=== PATIENT | male | born 1975 | race Caucasian/White ===

== ENCOUNTER → 2018-10-09 | Outpatient (REF) | payer OTHER ==
[~2018-10-09] MED LIST: ABIL10TA OR; ABIL2TAB OR; AMBI5TAB OR; DEPA500T2 OR; DEPAKOTE PO; HALO10TA4 OR; TRAZ50TA OR; VITA500C OR; [UNRECOGNIZED DRUG - OTHER] TOP
[2018-10-09 12:11] LABS: HEMATOCRIT 44.8 % (42.0-52.0); HEMOGLOBIN 15.7 g/dl (13.5-17.5); MEAN CORPUSCULAR HEMOGLOBIN 30.3 pg (27.0-33.0); MEAN CORPUSCULAR VOLUME 86.5 fl (80.0-96.0); PLATELET COUNT, AUTOMATED 209 10^3/uL (150-450); RED BLOOD COUNT 5.18 10^6/uL (4.30-6.10); WHITE BLOOD COUNT 9.7 10^3/uL (4.0-10.0)
[2018-10-09 13:20] LABS: ALBUMIN 3.7 GM/DL (3.2-5.2); ALT/SGPT 28 U/L (12-78); BILIRUBIN,TOTAL 0.4 MG/DL (0.2-1.0); BLOOD UREA NITROGEN 7 MG/DL (7-18); CALCIUM LEVEL 8.5 MG/DL (8.5-10.1); CARBON DIOXIDE LEVEL 26 MEQ/L (21-32); CHLORIDE LEVEL 105 MEQ/L (98-107); CHOLESTEROL LEVEL 123 MG/DL (<200); CHOLESTEROL RISK RATIO 3.075 (<5); CREATININE FOR GFR 0.81 MG/DL (0.70-1.30); FREE T4 1.27 NG/DL (0.76-1.46); GLOMERULAR FILTRATION RATE > 60.0 (>60); GLUCOSE, FASTING 74 MG/DL (70-100); HDL CHOLESTEROL 40 MG/DL (>40); LDL CHOLESTEROL 67 MG/DL (<100); NON-HDL-C 83 MG/DL; POTASSIUM SERUM 3.9 MEQ/L (3.5-5.1); SODIUM LEVEL 137 MEQ/L (136-145); TOTAL PROTEIN 6.7 GM/DL (6.4-8.2); TRIGLYCERIDES LEVEL 78 MG/DL (<150)
[2018-10-09 13:24] LABS: HEPATITIS C VIRUS ABY INDEX < 0.0 INDEX (<0.8)
[2018-10-09 13:25] LABS: HIV 1&2 SCREEN CENTAUR NEGATIVE (NEGATIVE)
[2018-10-09 15:45] LABS: HEMOGLOBIN A1c 5.5 %
== END ==
LOC: M SFHCPLAZ 09:32
PROVIDERS: ATTEND Physician Assistant
DX: Z11.4 Encounter for screening for human immunodeficiency virus [HIV] (principal); F31.9 Bipolar disorder, unspecified; Z11.59 Encounter for screening for other viral diseases; Z13.220 Encounter for screening for lipoid disorders

== ENCOUNTER 2020-06-26 20:31 | Emergency (ER) | payer MEDICAID, OTHER ==
[~2020-06-26] VITALS: Ht 162.6 cm; Wt 56.7 kg
[2020-06-26] MEDS ORDERED: LORazepam 2 MG/ML VIAL IV STA (20:43)
[2020-06-26 20:58] LABS: BASO % 0.4 % (0.0-1.0); EOS # 0.1 10^3/uL (0.0-0.5); EOS % 0.6 % (0.0-3.0); HEMATOCRIT 48.1 % (42.0-52.0); HEMOGLOBIN 16.2 g/dl (13.5-17.5); LYMPH # 1.3 10^3/uL (1.5-5.0); LYMPH % 12.3 % (24.0-44.0); MEAN CORPUSCULAR HGB CONC 33.7 g/dl (32.0-36.5); MEAN CORPUSCULAR VOLUME 86.2 fl (80.0-96.0); MONO % 8.9 % (0.0-5.0); NEUTROPHILS # 8.4 10^3/uL (1.5-8.5); NEUTROPHILS % 77.3 % (36.0-66.0); PLATELET COUNT, AUTOMATED 298 10^3/uL (150-450); RED BLOOD COUNT 5.58 10^6/uL (4.30-6.10); WHITE BLOOD COUNT 10.9 10^3/uL (4.0-10.0)
[2020-06-26 21:39] LABS: ACETAMINOPHEN LEVEL < 2.0 UG/ML (10.0-30.0); ALBUMIN 4.2 GM/DL (3.2-5.2); ALT/SGPT 23 U/L (12-78); BILIRUBIN,DIRECT 0.1 MG/DL (0.0-0.2); BILIRUBIN,TOTAL 0.5 MG/DL (0.2-1.0); BLOOD UREA NITROGEN 10 MG/DL (7-18); CALCIUM LEVEL 9.5 MG/DL (8.5-10.1); CARBON DIOXIDE LEVEL 23 MEQ/L (21-32); CHLORIDE LEVEL 103 MEQ/L (98-107); CPK CREATINE PHOSPHOKINASE 400 U/L (39-308); CREATININE FOR GFR 0.91 MG/DL (0.70-1.30); ETHYL ALCOHOL (ETHANOL) < 0.003 % (0.000-0.010); GLOMERULAR FILTRATION RATE > 60.0 (>60); GLUCOSE, FASTING 126 MG/DL (70-100); SALICYLATE LEVEL 4.2 MG/DL (5.0-30.0); SODIUM LEVEL 135 MEQ/L (136-145); TOTAL PROTEIN 8.1 GM/DL (6.4-8.2)
[2020-06-26] MEDS ORDERED: BENZ-52 PO (22:40)
[2020-06-26] MEDS ORDERED: OLAN15TA PO (22:40)
[2020-06-26 23:12] LABS: AMPHETAMINES LEVEL URINE NEGATIVE (NEGATIVE); BARBITURATES URINE NEGATIVE (NEGATIVE); BENZODIAZEPINES URINE NEGATIVE (NEGATIVE); CANNABINOIDS URINE NEGATIVE (NEGATIVE); COCAINE METABOLITE URINE NEGATIVE (NEGATIVE); METHADONE URINE NEGATIVE (NEGATIVE); OPIATES URINE NEGATIVE (NEGATIVE); PHENCYCLIDINE URINE NEGATIVE (NEGATIVE)
--- NOTE | 2020-06-27 06:37 | ECGEPIP ---
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
--- NOTE | 2020-06-27 06:44 | ECGEPIP ---
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
--- NOTE | 2020-06-27 06:45 | ECGEPIP ---
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
[2020-06-27] MEDS ORDERED: OLANZapine 5 MG TAB PO SCH (21:00)
[2020-06-27] MEDS ORDERED: BENZTROPINE 1 MG TAB PO SCH (21:00)
[2020-06-27 22:52] VITALS: BP 142/96
== END 2020-06-27 22:57 ==
LOC: M ED 20:31
DX: T43.592A Poisoning by other antipsychotics and neuroleptics, intentional self-harm, initial encounter (principal); T44.3X2A Poisoning by other parasympatholytics [anticholinergics and antimuscarinics] and spasmolytics, intentional self-harm, initial encounter; F19.959 Other psychoactive substance use, unspecified with psychoactive substance-induced psychotic disorder, unspecified; R94.31 Abnormal electrocardiogram [ECG] [EKG]; Z79.899 Other long term (current) drug therapy
CPT/HCPCS: 36415; 80048; 80076; 80307; 82550; 84443; 85025; 93005; 93041; 94760; 99285; G0480; J2060; U0002

== ENCOUNTER 2020-07-10 13:14 | Inpatient (IN) | payer MEDICAID, OTHER ==
[~2020-07-10] VITALS: Ht 162.6 cm; Wt 55.5 kg
[~2020-07-10 13:14] MED LIST changes: +BENZ-52 PO; +OLAN15TA PO
[2020-07-10 14:08] LABS: HEMATOCRIT 44.3 % (42.0-52.0); HEMOGLOBIN 14.8 g/dl (13.5-17.5); MEAN CORPUSCULAR HEMOGLOBIN 29.2 pg (27.0-33.0); MEAN CORPUSCULAR HGB CONC 33.4 g/dl (32.0-36.5); MEAN CORPUSCULAR VOLUME 87.4 fl (80.0-96.0); PLATELET COUNT, AUTOMATED 311 10^3/uL (150-450); RED BLOOD COUNT 5.07 10^6/uL (4.30-6.10); WHITE BLOOD COUNT 8.5 10^3/uL (4.0-10.0)
[2020-07-10 14:40] LABS: AMPHETAMINES LEVEL URINE NEGATIVE (NEGATIVE); BARBITURATES URINE NEGATIVE (NEGATIVE); BENZODIAZEPINES URINE NEGATIVE (NEGATIVE); CANNABINOIDS URINE NEGATIVE (NEGATIVE); COCAINE METABOLITE URINE NEGATIVE (NEGATIVE); METHADONE URINE NEGATIVE (NEGATIVE); OPIATES URINE NEGATIVE (NEGATIVE); PHENCYCLIDINE URINE NEGATIVE (NEGATIVE)
[2020-07-10 14:49] LABS: ACETAMINOPHEN LEVEL < 2.0 UG/ML (10.0-30.0); ALT/SGPT 25 U/L (12-78); BILIRUBIN,DIRECT < 0.1 MG/DL (0.0-0.2); BILIRUBIN,TOTAL 0.3 MG/DL (0.2-1.0); BLOOD UREA NITROGEN 10 MG/DL (7-18); CALCIUM LEVEL 8.4 MG/DL (8.5-10.1); CARBON DIOXIDE LEVEL 22 MEQ/L (21-32); CHLORIDE LEVEL 104 MEQ/L (98-107); CREATININE FOR GFR 0.91 MG/DL (0.70-1.30); ETHYL ALCOHOL (ETHANOL) < 0.003 % (0.000-0.010); GLOMERULAR FILTRATION RATE > 60.0 (>60); GLUCOSE, FASTING 86 MG/DL (70-100); POTASSIUM SERUM 4.1 MEQ/L (3.5-5.1); SODIUM LEVEL 134 MEQ/L (136-145); TOTAL PROTEIN 7.3 GM/DL (6.4-8.2)
[2020-07-10] MEDS ORDERED: ACETAMINOPHEN TAB 650MG DOSE (2X325MG) PO PRN (18:30)
[2020-07-10] MEDS ORDERED: MAALOX 30 ML SUSP *UDC PO PRN (18:30)
[2020-07-10] MEDS ORDERED: MOM 30ML SUSPENSION UDC PO PRN (18:30)
[2020-07-10] MEDS ORDERED: traZODone 50 MG TAB PO PRN (18:30)
[2020-07-10 22:00] VITALS: BP 158/103
[2020-07-11 06:29] VITALS: BP 136/92
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
[2020-07-11] MEDS ORDERED: NICOTINE POLACRILEX 2 MG GUM PO PRN (09:15)
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
[2020-07-11 17:02] VITALS: BP 151/82
[2020-07-11] MEDS: OLANZapine 5 MG TAB PO SCH (21:00)
[2020-07-11] MEDS: BENZTROPINE 1 MG TAB PO SCH (21:00)
[2020-07-12 06:37] VITALS: BP 114/78
[2020-07-12 16:22] VITALS: BP 139/86
[2020-07-12] MEDS: OLANZapine 5 MG TAB PO SCH (21:00)
[2020-07-12] MEDS: BENZTROPINE 1 MG TAB PO SCH (21:00)
[2020-07-13 06:00] VITALS: BP 145/95
[2020-07-13] MEDS ORDERED: risperiDONE 1 MG TAB PO STA (13:44)
[2020-07-13 16:35] VITALS: BP 149/96
[2020-07-13] MEDS: OLANZapine 5 MG TAB PO SCH (20:30)
[2020-07-13] MEDS: BENZTROPINE 1 MG TAB PO SCH (20:30)
--- NOTE | 2020-07-13 20:45 | MHIPN ---
[facility] PROGRESS NOTE DATE: 07/12/2020 The patient today is very delusional, he just goes on about the fact that the only reason why he is in the hospital is because his blood pressure is high and his blood pressure is high because of the psychotropic medications that he was being prescribed. Actually I am his outpatient psychiatrist, I have been prescribing his current psychotropic medications for many years now, and he actually had been quite compliant and it is not clear if he stopped his medications recently because I am not able to get a straight answer from him about that. MENTAL STATUS EXAMINATION: This patient is alert, he is oriented times three. His speech is pressured. He has flight of ideas. Affect is labile. His mood is manic. He has delusions about having been pardoned and being allowed to vote. Of note, is that the patient was in assisted for a number of years and is still under parole. He denies suicidal or homicidal ideations. Concentration is poor. Insight and judgment is poor. DIAGNOSES: Schizophrenia. Intellectual disability. TREATMENT PLAN: At this point, we will continue to monitor the patient for his psychotic symptoms. He apparently has been continued on his medication and the plan will be titrate the medication as indicated. Actually, he has been refusing his medications so we will need to encourage him to become compliant and it may be a good idea to see if he might agree to a long-term injectable like possibly Invega Sustenna.
[2020-07-14 06:26] VITALS: BP 131/58
--- NOTE | 2020-07-14 08:14 | MHIPN ---
[facility] PROGRESS NOTE DATE: 07/13/2020 The patient today states that the medication he was being prescribed, the psychotropics that include Zyprexa "was killing me." He continues to feel that it is causing his blood pressure to be high. Of note, I am his outpatient psychiatrist and he has been on these medications for years. He continues to be quite paranoid but he does agree to try a different medication actually. He says he had tried Risperdal before and asked if I would prescribe Risperdal for him. MENTAL STATUS EXAMINATION: This patient is alert and oriented times three. He has pressured speech, flight of ideas, labile affect. His mood is manic. The patient has paranoid thoughts. He denies suicidal or homicidal ideation. Concentration is poor. Memory is grossly intact. Insight and judgment poor. DIAGNOSES: Schizophrenia. Mild intellectual disability. TREATMENT PLAN: The patient did agree to a trial of Invega Sustenna injections but even though he says he had been prescribed Risperdal in the past, I am going to go ahead and give him a Risperdal 1 mg dose today and if he has no bad reactions tomorrow he can start the Invega Sustenna injection.
--- NOTE | 2020-07-14 12:30 | MHIPNPDOC ---
[facility] Progress Note Progress Note DATE OF SERVICE: 07/14/20 HISTORY: Patient was a 9.45 to this facility, initiated by Dr. Mcclelland after speaking to the patient and determining that he is delusional and paranoid. Patient is a 44 -year-old Single, Disabled, Domiciled , male, who was brought to the ED on a 9.45 that was initiated by Dr. Mcclelland who felt that the patient was psychotic, delusional and paranoid. VITAL SIGNS: See below. NEW TEST RESULTS: . CURRENT MEDICATIONS: See below. MENTAL STATUS EXAMINATION: Patient is a 44 -year-old Single, Disabled, Domiciled , male, who was brought to the ED on a 9.45 that was initiated by Dr. Mcclelland who felt that the patient was psychotic, delusional and paranoi General Appearance: unkempt, disheveled, ds/not appear stated age (appears much older than stated age), hospital scrubs/clothing Build: thin Demeanor: very fidgety Eye Contact: average Activity: mildly restless Behavior: cooperative, restless (mildly) Speech: rapid, pressured Mood: Worried Affect: flat Thought Process: loose, flight of ideas, racing Thought Content (Delusions): paranoia, delusions Thought Content (Other): obsessional about Asians, [place] government, Octavio michelle Thought Content (Aggressive): none reported Perception (Hallucinations): none reported Perception (Other): none reported Cognition (Impairment of): memory, attention/concentration Cognition(Intelligence Est.): MR Oriented: Awake, Alert, Oriented times three Insight: poor Judgment: Poor Psychosis: Other (Believes that parole is working against him) DIAGNOSES: Schizophrenia, Paranoid Type Intellectual Disability ASSESSMENT: Patient is hyperverbal and tangential. Is hyper-focused on Celebrity Octavio Michelle and also the [place] government. He presents with flight of ideas, nonsensical and bizarre statements about the [place]/Asians and that he is . He is calm and cooperative in the interview but extremely tangential with fast speech, stating that he prefers [place] medicine, government and politicians to Western world. He spent much of his 20 minutes talking about [employer] being a super power. MANAGEMENT PLAN: Increase Risperdal to 3 mg at HS. Patient agreeable to Invega Sustenna 234 mg IM on 07/15 and 156 mg IM on 07/18. If patient is stable on 07/18 we will discharge him. TIME SPENT: 25 minutes. Vital Signs Vital Signs Date Time Temp Pulse Resp B/P (MAP) Pulse Ox O2 Delivery O2 Flow Rate FiO2 07/14/20 06:26 97.5 86 18 131/58 (82) 98 Room Air Current Medications Current Medications Medications (Trade) Dose Ordered Sig/Rd Route PRN Reason Start Time Stop Time Status Last Admin Dose Admin Acetaminophen (Tylenol Tab) 650 mg Q6HP PRN PO HEADACHE or DISCOMFORT 07/10/20 18:30 Al Hydrox/Mg Hydrox/Simethicone (Mylanta) 30 ml Q4HP PRN PO HEARTBURN/INDIGESTION 07/10/20 18:30 Benztropine Mesylate (Cogentin) 3 mg QHS PO 07/11/20 21:00 Home Med (Med Rec Complete!) ASDIRECTED XX 07/10/20 15:30 07/10/20 15:20 DC Magnesium Hydroxide (Milk Of Magnesia) 30 ml DAILYPRN PRN PO CONSTIPATION 07/10/20 18:30 Nicotine (Nicorette) 2 mg Q2HP PRN PO NICOTINE WITHDRAWAL 07/11/20 09:15 Olanzapine (ZyPREXA) 15 mg QHS PO 07/11/20 21:00 Risperidone (RisperDAL) 1 mg STAT STAT PO 07/13/20 13:44 07/13/20 13:46 DC 07/13/20 13:52 Trazodone HCl (Desyrel) 50 mg QHSP PRN PO INSOMNIA 07/10/20 18:30 Allergies Coded Allergies: No Known Allergies (Verified , 09/22/05) WU MENEZES NP Jul 14, 2020 12:30
[2020-07-14 17:52] VITALS: BP 147/87
[2020-07-14] MEDS: OLANZapine 5 MG TAB PO SCH (21:00)
[2020-07-14] MEDS: BENZTROPINE 1 MG TAB PO SCH (21:00)
[2020-07-14] MEDS: risperiDONE 3 MG TAB PO SCH (21:00)
[2020-07-15 06:28] VITALS: BP 153/90
[2020-07-15] MEDS ORDERED: HALOPERIDOL 5MG/ML VIAL (J1630 PER 1) IM STA (08:37)
[2020-07-15] MEDS ORDERED: diphenhydrAMINE 50MG/ML VIAL (J1200) IM STA (08:37)
[2020-07-15] MEDS ORDERED: LORazepam 2 MG/ML VIAL IM STA (08:37)
[2020-07-15] MEDS ORDERED: PALIPERIDONE PALMITATE 234MG/1.5ML INJ (INVEGA)(FREE PSY INPT ONLY) IM SCH (09:00)
--- NOTE | 2020-07-15 13:45 | MHIPNPDOC ---
[facility] Progress Note Progress Note DATE OF SERVICE: 07/15/20 HISTORY: Patient was a 9.45 to this facility, initiated by Dr. Mcclelland after speaking to the patient and determining that he is delusional and paranoid. Patient is a 44 -year-old Single, Disabled, Domiciled , male, who was brought to the ED on a 9.45 that was initiated by Dr. Mcclelland who felt that the patient was psychotic, delusional and paranoid. VITAL SIGNS: See below. NEW TEST RESULTS: . CURRENT MEDICATIONS: See below. MENTAL STATUS EXAMINATION: Patient is a 44 -year-old Single, Disabled, Domiciled , male, who was brought to the ED on a 9.45 that was initiated by Dr. Mcclelland who felt that the patient was psychotic, delusional and paranoi General Appearance: unkempt, disheveled, ds/not appear stated age (appears much older than stated age), hospital scrubs/clothing Build: thin Demeanor: agitated, hostile Eye Contact: average Activity: restless Behavior: uncooperative, restless (mildly) Speech: rapid, pressured, flight of ideas Mood: agitated/labile Affect: flat Thought Process: loose, flight of ideas, racing Thought Content (Delusions): paranoia, delusions Thought Content (Other): obsessional about Asians, [place], Octavio michelle Thought Content (Aggressive): none reported Perception (Hallucinations): none reported Perception (Other): none reported Cognition (Impairment of): memory, attention/concentration Cognition(Intelligence Est.): MR Oriented: Awake, Alert, Oriented times three Insight: poor Judgment: Poor Psychosis: Other (Believes that parole is working against him) DIAGNOSES: Schizophrenia, Paranoid Type Intellectual Disability ASSESSMENT: Patient was observed to be hyperverbal and tangential. Is again hyper-focused on Asians. He was observed with this morning with agitation, hostility, loud, pressured speech, flight of ideas, nonsensical and bizarre statements. He was threatening towards staff and could not be redirected. Patient has been refusing medications. Due to his continued and lengthy agitated and aggressive behaviors that were threatening, he was offered medications. He willingly took the medications without safety hold. MANAGEMENT PLAN: Risperdal to 3 mg at HS. Ordered Invega Sustenna 234 mg IM on 07/16 and 156 mg IM on 07/19. Patient was ordered Haldol 10 mg IM, Ativan 2 mg IM and Benadryl 50 mg IM due to aggressive behaviors and threats of harm. This was effective, patient has been sleeping and is calm. TIME SPENT: 25 minutes. Vital Signs Vital Signs Date Time Temp Pulse Resp B/P (MAP) Pulse Ox O2 Delivery O2 Flow Rate FiO2 07/15/20 06:28 98.5 102 20 153/90 (111) 99 Room Air Current Medications Current Medications Medications (Trade) Dose Ordered Sig/Rd Route PRN Reason Start Time Stop Time Status Last Admin Dose Admin Acetaminophen (Tylenol Tab) 650 mg Q6HP PRN PO HEADACHE or DISCOMFORT 07/10/20 18:30 Al Hydrox/Mg Hydrox/Simethicone (Mylanta) 30 ml Q4HP PRN PO HEARTBURN/INDIGESTION 07/10/20 18:30 Benztropine Mesylate (Cogentin) 3 mg QHS PO 07/11/20 21:00 Diphenhydramine HCl (Benadryl) 50 mg STAT STAT IM 07/15/20 08:37 07/15/20 08:40 DC 07/15/20 08:51 Haloperidol (Haldol) 10 mg STAT STAT IM 07/15/20 08:37 07/15/20 08:40 DC 07/15/20 08:51 Home Med (Med Rec Complete!) ASDIRECTED XX 07/10/20 15:30 07/10/20 15:20 DC Lorazepam (Ativan) 2 mg STAT STAT IM 07/15/20 08:37 07/15/20 08:40 DC 07/15/20 08:51 Magnesium Hydroxide (Milk Of Magnesia) 30 ml DAILYPRN PRN PO CONSTIPATION 07/10/20 18:30 Nicotine (Nicorette) 2 mg Q2HP PRN PO NICOTINE WITHDRAWAL 07/11/20 09:15 Olanzapine (ZyPREXA) 15 mg QHS PO 07/11/20 21:00 Paliperidone Palmitate (Invega Sustenna) 156 mg Q30D IM 07/18/20 09:00 07/18/20 09:01 Paliperidone Palmitate (Invega Sustenna) 234 mg Q30D IM 07/15/20 09:00 07/15/20 09:01 DC Risperidone (RisperDAL) 1 mg STAT STAT PO 07/13/20 13:44 07/14/20 12:07 DC 07/13/20 13:52 Risperidone (RisperDAL) 3 mg QHS PO 07/14/20 21:00 Trazodone HCl (Desyrel) 50 mg QHSP PRN PO INSOMNIA 07/10/20 18:30 Allergies Coded Allergies: No Known Allergies (Verified , 09/22/05) WU MENEZES NP Jul 15, 2020 13:30
[2020-07-15] MEDS: OLANZapine 5 MG TAB PO SCH (20:57)
[2020-07-15] MEDS: risperiDONE 3 MG TAB PO SCH (20:57)
[2020-07-15] MEDS: BENZTROPINE 1 MG TAB PO SCH (20:57)
[2020-07-16 06:00] VITALS: BP 121/88
[2020-07-16] MEDS: risperiDONE 2 MG TAB PO SCH ×2 (10:18→21:00)
[2020-07-16] MEDS ORDERED: PALIPERIDONE PALMITATE 234MG/1.5ML INJ (INVEGA)(FREE PSY INPT ONLY) IM ONE (11:00)
--- NOTE | 2020-07-16 11:09 | MHIPNPDOC ---
[facility] Progress Note Progress Note DATE OF SERVICE: 07/16/20 HISTORY: Patient was a 9.45 to this facility, initiated by Dr. Mcclelland after speaking to the patient and determining that he is delusional and paranoid. Patient is a 44 -year-old Single, Disabled, Domiciled , male, who was brought to the ED on a 9.45 that was initiated by Dr. Mcclelland who felt that the patient was psychotic, delusional and paranoid. VITAL SIGNS: See below. NEW TEST RESULTS: . CURRENT MEDICATIONS: See below. MENTAL STATUS EXAMINATION: Patient is a 44 -year-old Single, Disabled, Domiciled , male, who was brought to the ED on a 9.45 that was initiated by Dr. Mcclelland who felt that the patient was psychotic, delusional and paranoid Speech: Is garbled due to poor dentition, conversant, rapid rate, calmer tone and volume Language skills are intact Thought processes including: linear and goal oriented Thought content: denies depression and anxiety. Denies suicidal/homicidal ideation, planning or intent. Abstract reasoning, and computation: fair Description of associations: denies, but very focused on Asians, Medications, Staff not taking care of him. He is less labile today Description of abnormal or psychotic thoughts: he is mildly manic in his speech Judgment: fair Insight: fair Orientation: alert and oriented to person, place, time and situation Recent and remote memory: intact Attention span and concentration: fair Language: expansive Fund of knowledge: below average Mood: Euthymic Mood Affect: reactive DIAGNOSES: Schizophrenia, Paranoid Type Intellectual Disability ASSESSMENT: Patient was observed to be mildly hyperverbal and tangential. Is again hyper-focused on medications and [place] translation of meds. He was observed with this morning with calmer demeanor. He is moderately demeaning about staff. In the interview, he is requesting to be discharged. I have encouraged him to take the Long Acting Injectable today with the Booster on Tuesday. Patient does appear to have positive residual effects from the Haldol 10 mg IM, Ativan 2 mg IM and Benadryl 50 mg IM from yesterday in that he is much calmer and is able to be converse without maniacal behaviors. Patient requested this provider to observe him getting IM injection. Patient willingly took injection and Risperdal today and has been in good behavioral control today. MANAGEMENT PLAN: Risperdal increased to 2 mg at bid. Ordered Invega Sustenna 234 mg IM on 07/16, He was compliant with this injection and took it without hesitation today. Invega Sustenna 156 mg IM ordered on 07/19. We will discharge when he is stable. TIME SPENT: 25 minutes. Vital Signs Vital Signs Date Time Temp Pulse Resp B/P (MAP) Pulse Ox O2 Delivery O2 Flow Rate FiO2 07/16/20 06:00 97.3 78 20 121/88 (99) 100 Room Air Current Medications Current Medications Medications (Trade) Dose Ordered Sig/Rd Route PRN Reason Start Time Stop Time Status Last Admin Dose Admin Acetaminophen (Tylenol Tab) 650 mg Q6HP PRN PO HEADACHE or DISCOMFORT 07/10/20 18:30 Al Hydrox/Mg Hydrox/Simethicone (Mylanta) 30 ml Q4HP PRN PO HEARTBURN/INDIGESTION 07/10/20 18:30 Benztropine Mesylate (Cogentin) 3 mg QHS PO 07/11/20 21:00 Diphenhydramine HCl (Benadryl) 50 mg STAT STAT IM 07/15/20 08:37 07/15/20 08:40 DC 07/15/20 08:51 Haloperidol (Haldol) 10 mg STAT STAT IM 07/15/20 08:37 07/15/20 08:40 DC 07/15/20 08:51 Home Med (Med Rec Complete!) ASDIRECTED XX 07/10/20 15:30 07/10/20 15:20 DC Lorazepam (Ativan) 2 mg STAT STAT IM 07/15/20 08:37 07/15/20 08:40 DC 07/15/20 08:51 Magnesium Hydroxide (Milk Of Magnesia) 30 ml DAILYPRN PRN PO CONSTIPATION 07/10/20 18:30 Nicotine (Nicorette) 2 mg Q2HP PRN PO NICOTINE WITHDRAWAL 07/11/20 09:15 Olanzapine (ZyPREXA) 15 mg QHS PO 07/11/20 21:00 Paliperidone Palmitate (Invega Sustenna) 156 mg Q30D IM 07/18/20 09:00 07/15/20 13:36 DC Paliperidone Palmitate (Invega Sustenna) 234 mg Q30D IM 07/15/20 09:00 07/15/20 09:01 DC Risperidone (RisperDAL) 1 mg STAT STAT PO 07/13/20 13:44 07/14/20 12:07 DC 07/13/20 13:52 Risperidone (RisperDAL) 2 mg BID PO 07/16/20 09:00 07/16/20 10:18 Risperidone (RisperDAL) 3 mg QHS PO 07/14/20 21:00 07/16/20 10:07 DC Trazodone HCl (Desyrel) 50 mg QHSP PRN PO INSOMNIA 07/10/20 18:30 Allergies Coded Allergies: No Known Allergies (Verified , 09/22/05) WU MENEZES NP Jul 16, 2020 11:09
[2020-07-16] MEDS: BENZTROPINE 1 MG TAB PO SCH (21:00)
[2020-07-16] MEDS: OLANZapine 5 MG TAB PO SCH (21:00)
[2020-07-17 06:51] VITALS: BP 129/87
--- NOTE | 2020-07-17 09:42 | MHIPNPDOC ---
[facility] Progress Note Progress Note DATE OF SERVICE: 07/17/20 HISTORY: Patient was a 9.45 to this facility, initiated by Dr. Mcclelland after speaking to the patient and determining that he is delusional and paranoid. Patient is a 44 -year-old Single, Disabled, Domiciled , male, who was brought to the ED on a 9.45 that was initiated by Dr. Mcclelland who felt that the patient was psychotic, delusional and paranoid. VITAL SIGNS: See below. NEW TEST RESULTS: . CURRENT MEDICATIONS: See below. MENTAL STATUS EXAMINATION: Patient is a 44 -year-old Single, Disabled, Domiciled , male, who was brought to the ED on a 9.45 that was initiated by Dr. Mcclelland who felt that the patient was psychotic, delusional and paranoid Speech: Is garbled due to poor dentition, he maintains eye contact, is not observed with psychomotor agitation or retardation Language skills are intact Thought processes including: linear and mildly to moderately loose Thought content: denies depression and anxiety. Denies suicidal/homicidal ideation, planning or intent. Abstract reasoning, and computation: fair Description of associations: denies, but very focused on Asians, COVID and his theories about what foods are appropriate for COVID precautions Description of abnormal or psychotic thoughts: has nonsensical theories about COVID Judgment: fair Insight: fair Orientation: alert and oriented to person, place, time and situation Recent and remote memory: intact Attention span and concentration: fair Language: expansive Fund of knowledge: below average Mood: mildly irritable Affect: flat DIAGNOSES: Schizophrenia, Paranoid Type Intellectual Disability ASSESSMENT: Patient was observed to be mildly hyperverbal and tangential. Patient is upset that he is quarantined to his room for COVID precautions, stat es that he needs to eat seafood because seafood protein has not been on land and therefore is not susceptible to the Covid virus. States that he will only eat tuna fish, but needs to go home to be able to eat lobster, fish and crab. He is in good behavioral control, continues to be have paranoia about staff treating him poorly because he is ( he believes that he is related to Octavio Cordova because their last names are the same) Patient is and not . He is pleasantly delusional, but not a danger to himself or others. He is aware that he needs to have his 2nd dose of Invega Sustenna before he can be considered for discharge. Patient is less aggressive and agitated today than two days ago, Risperdal and Invega is effective, but we want to be sure that he can maintain this behavior, otherwise he may return in a short period if we cannot get him more stable. He has intermitted episodes of agitation and irritability but he is compliant with medications MANAGEMENT PLAN: Risperdal increased to 2 mg at bid. Invega Sustenna 156 mg IM ordered on 07/19. We will discharge when he is stable. TIME SPENT: 25 minutes. Vital Signs Vital Signs Date Time Temp Pulse Resp B/P (MAP) Pulse Ox O2 Delivery O2 Flow Rate FiO2 07/17/20 06:51 97.9 87 16 129/87 (101) 98 Room Air Current Medications Current Medications Medications (Trade) Dose Ordered Sig/Rd Route PRN Reason Start Time Stop Time Status Last Admin Dose Admin Acetaminophen (Tylenol Tab) 650 mg Q6HP PRN PO HEADACHE or DISCOMFORT 07/10/20 18:30 Al Hydrox/Mg Hydrox/Simethicone (Mylanta) 30 ml Q4HP PRN PO HEARTBURN/INDIGESTION 07/10/20 18:30 Benztropine Mesylate (Cogentin) 3 mg QHS PO 07/11/20 21:00 Diphenhydramine HCl (Benadryl) 50 mg STAT STAT IM 07/15/20 08:37 07/15/20 08:40 DC 07/15/20 08:51 Haloperidol (Haldol) 10 mg STAT STAT IM 07/15/20 08:37 07/15/20 08:40 DC 07/15/20 08:51 Home Med (Med Rec Complete!) ASDIRECTED XX 07/10/20 15:30 07/10/20 15:20 DC Lorazepam (Ativan) 2 mg STAT STAT IM 07/15/20 08:37 07/15/20 08:40 DC 07/15/20 08:51 Magnesium Hydroxide (Milk Of Magnesia) 30 ml DAILYPRN PRN PO CONSTIPATION 07/10/20 18:30 Nicotine (Nicorette) 2 mg Q2HP PRN PO NICOTINE WITHDRAWAL 07/11/20 09:15 Olanzapine (ZyPREXA) 15 mg QHS PO 07/11/20 21:00 Paliperidone Palmitate (Invega Sustenna) 156 mg Q30D IM 07/18/20 09:00 07/15/20 13:36 DC Paliperidone Palmitate (Invega Sustenna) 234 mg Q30D IM 07/15/20 09:00 07/15/20 09:01 DC Risperidone (RisperDAL) 1 mg STAT STAT PO 07/13/20 13:44 07/14/20 12:07 DC 07/13/20 13:52 Risperidone (RisperDAL) 2 mg BID PO 07/16/20 09:00 07/16/20 10:18 Risperidone (RisperDAL) 3 mg QHS PO 07/14/20 21:00 07/16/20 10:07 DC Trazodone HCl (Desyrel) 50 mg QHSP PRN PO INSOMNIA 07/10/20 18:30 Allergies Coded Allergies: No Known Allergies (Verified , 09/22/05) WU MENEZES NP Jul 17, 2020 09:42
[2020-07-17] MEDS: risperiDONE 2 MG TAB PO SCH ×2 (10:20→21:00)
[2020-07-17 16:00] VITALS: BP 131/108
[2020-07-17] MEDS: BENZTROPINE 1 MG TAB PO SCH (20:51)
[2020-07-17] MEDS: OLANZapine 5 MG TAB PO SCH (21:00)
[2020-07-18 07:10] VITALS: BP 119/86
[2020-07-18 08:40] VITALS: BP 119/86
[2020-07-18] MEDS ORDERED: PALIPERIDONE PALMITATE 156MG/1ML INJ(INVEGA)(FREE PSY INPT ONLY) IM SCH (09:00)
[2020-07-18] MEDS: risperiDONE 2 MG TAB PO SCH ×2 (09:03→21:00)
--- NOTE | 2020-07-18 09:53 | MHIPNPDOC ---
[facility] Progress Note Progress Note DATE OF SERVICE: 07/18/20 HISTORY: Patient was a 9.45 to this facility, initiated by Dr. Mcclelland after speaking to the patient and determining that he is delusional and paranoid. Patient is a 44 -year-old Single, Disabled, Domiciled , male, who was brought to the ED on a 9.45 that was initiated by Dr. Mcclelland who felt that the patient was psychotic, delusional and paranoid. VITAL SIGNS: See below. NEW TEST RESULTS: . CURRENT MEDICATIONS: See below. MENTAL STATUS EXAMINATION: Patient is a 44 -year-old Single, Disabled, Domiciled , male, who was brought to the ED on a 9.45 that was initiated by Dr. Mcclelland who felt that the patient was psychotic, delusional and paranoid Speech: Is garbled due to poor dentition, hyperverbal, tangential Language skills are intact Thought processes including: linear and mildly with loose associations Thought content: denies depression and anxiety. Denies suicidal/homicidal ideation, planning or intent. Abstract reasoning, and computation: fair Description of associations: denies, continues to be hyperverbal about his theories about what foods are appropriate for COVID precautions Description of abnormal or psychotic thoughts: has nonsensical theories about COVID Judgment: fair Insight: fair Orientation: alert and oriented to person, place, time and situation Recent and remote memory: intact Attention span and concentration: fair Language: expansive Fund of knowledge: below average Mood: euthymic Affect: flat DIAGNOSES: Schizophrenia, Paranoid Type Intellectual Disability ASSESSMENT: Patient was observed to be hyperverbal and tangential with loose associations. Patient is reporting that he is going to stay in his room and stay away from peers (he was tangential about a peer who is affiliated with the ) He was found in the doorway of his room speaking to the [place] on the unit, talking to the staff with non-stop nonsensical statements. He is calm and cooperative but pleasantly delusional. He continues to have diet restrictions due to his Lu Virus theories. Patient, although mildly delusional, nonsensical and bizarre in some of his thinking is not suicidal or homicidal. He is not depressed or anxious. He does not endorse psychosis, brina, paranoia, ruminations or AH/VH. He is alert and oriented and is compliant with medications at this time. MANAGEMENT PLAN: Risperdal increased to 2 mg at bid. Invega Sustenna 156 mg IM ordered on 07/19. We will discharge when he is stable. Probably Tuesday. TIME SPENT: 25 minutes. Vital Signs Vital Signs Date Time Temp Pulse Resp B/P (MAP) Pulse Ox O2 Delivery O2 Flow Rate FiO2 07/18/20 08:40 98.2 92 16 119/86 100 Room Air Current Medications Current Medications Medications (Trade) Dose Ordered Sig/Rd Route PRN Reason Start Time Stop Time Status Last Admin Dose Admin Acetaminophen (Tylenol Tab) 650 mg Q6HP PRN PO HEADACHE or DISCOMFORT 07/10/20 18:30 Al Hydrox/Mg Hydrox/Simethicone (Mylanta) 30 ml Q4HP PRN PO HEARTBURN/INDIGESTION 07/10/20 18:30 Benztropine Mesylate (Cogentin) 3 mg QHS PO 07/11/20 21:00 07/17/20 20:51 Diphenhydramine HCl (Benadryl) 50 mg STAT STAT IM 07/15/20 08:37 07/15/20 08:40 DC 07/15/20 08:51 Haloperidol (Haldol) 10 mg STAT STAT IM 07/15/20 08:37 07/15/20 08:40 DC 07/15/20 08:51 Home Med (Med Rec Complete!) ASDIRECTED XX 07/10/20 15:30 07/10/20 15:20 DC Lorazepam (Ativan) 2 mg STAT STAT IM 07/15/20 08:37 07/15/20 08:40 DC 07/15/20 08:51 Magnesium Hydroxide (Milk Of Magnesia) 30 ml DAILYPRN PRN PO CONSTIPATION 07/10/20 18:30 Nicotine (Nicorette) 2 mg Q2HP PRN PO NICOTINE WITHDRAWAL 07/11/20 09:15 Olanzapine (ZyPREXA) 15 mg QHS PO 07/11/20 21:00 Paliperidone Palmitate (Invega Sustenna) 156 mg Q30D IM 07/18/20 09:00 07/15/20 13:36 DC Paliperidone Palmitate (Invega Sustenna) 234 mg Q30D IM 07/15/20 09:00 07/15/20 09:01 DC Risperidone (RisperDAL) 1 mg STAT STAT PO 07/13/20 13:44 07/14/20 12:07 DC 07/13/20 13:52 Risperidone (RisperDAL) 2 mg BID PO 07/16/20 09:00 07/18/20 09:03 Risperidone (RisperDAL) 3 mg QHS PO 07/14/20 21:00 07/16/20 10:07 DC Trazodone HCl (Desyrel) 50 mg QHSP PRN PO INSOMNIA 07/10/20 18:30 Allergies Coded Allergies: No Known Allergies (Verified , 09/22/05) WU MENEZES NP Jul 18, 2020 09:53
[2020-07-18 18:00] VITALS: BP 157/82
[2020-07-18] MEDS: OLANZapine 5 MG TAB PO SCH (21:00)
[2020-07-18] MEDS: BENZTROPINE 1 MG TAB PO SCH (21:01)
[2020-07-19] MEDS: risperiDONE 2 MG TAB PO SCH ×2 (09:28→21:00)
[2020-07-19] MEDS ORDERED: PALIPERIDONE PALMITATE 156MG/1ML INJ(INVEGA)(FREE PSY INPT ONLY) IM ONE (13:00)
[2020-07-19] MEDS ORDERED: LORazepam 1 MG TAB PO ONE (15:00)
[2020-07-19 16:28] LABS: RSV AMPLIFICATION NEGATIVE (NEGATIVE)
[2020-07-19] MEDS: BENZTROPINE 1 MG TAB PO SCH (20:07)
[2020-07-19] MEDS: OLANZapine 5 MG TAB PO SCH (21:00)
[2020-07-20 06:50] VITALS: BP 132/68
[2020-07-20] MEDS: risperiDONE 2 MG TAB PO SCH ×2 (08:07→21:29)
[2020-07-20 18:00] VITALS: BP 145/86
[2020-07-20] MEDS: OLANZapine 5 MG TAB PO SCH (21:30)
[2020-07-20] MEDS: BENZTROPINE 1 MG TAB PO SCH (21:30)
[2020-07-21 06:37] VITALS: BP 143/79
[2020-07-21] MEDS ORDERED: BENZ-52 PO (09:38)
[2020-07-21] MEDS ORDERED: INVE234I IM (09:38)
[2020-07-21] MEDS ORDERED: OLAN15TA PO (09:38)
[2020-07-21] MEDS ORDERED: RISP-9 PO (09:38)
[2020-07-21] MEDS: risperiDONE 2 MG TAB PO SCH (09:53)
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
== END 2020-07-21 13:20 | disposition home or self-care (01) | DRG 750 ==
LOC: M ED 13:14 → M ED INP 18:18 → M PSY 21:00
PROVIDERS: ADMIT Psychiatry & Neurology Addiction Medicine; ATTEND Psychiatry & Neurology Psychiatry
DX: F20.0 Paranoid schizophrenia (principal); F79 Unspecified intellectual disabilities; Z79.899 Other long term (current) drug therapy

== ENCOUNTER 2020-07-26 22:11 | Inpatient (IN) | payer MEDICAID ==
[~2020-07-26] VITALS: Ht 165.1 cm; Wt 56.9 kg
[~2020-07-26 22:11] MED LIST changes: +INVE234I IM; +RISP-9 PO
[2020-07-27 00:12] LABS: HEMATOCRIT 45.6 % (42.0-52.0); HEMOGLOBIN 15.8 g/dl (13.5-17.5); MEAN CORPUSCULAR HEMOGLOBIN 30.3 pg (27.0-33.0); MEAN CORPUSCULAR HGB CONC 34.6 g/dl (32.0-36.5); MEAN CORPUSCULAR VOLUME 87.4 fl (80.0-96.0); PLATELET COUNT, AUTOMATED 250 10^3/uL (150-450); RED BLOOD COUNT 5.22 10^6/uL (4.30-6.10); WHITE BLOOD COUNT 8.8 10^3/uL (4.0-10.0)
[2020-07-27 00:41] LABS: AMPHETAMINES LEVEL URINE NEGATIVE (NEGATIVE); BARBITURATES URINE NEGATIVE (NEGATIVE); BENZODIAZEPINES URINE NEGATIVE (NEGATIVE); CANNABINOIDS URINE NEGATIVE (NEGATIVE); COCAINE METABOLITE URINE NEGATIVE (NEGATIVE); METHADONE URINE NEGATIVE (NEGATIVE); OPIATES URINE NEGATIVE (NEGATIVE); PHENCYCLIDINE URINE NEGATIVE (NEGATIVE)
[2020-07-27 01:02] LABS: ACETAMINOPHEN LEVEL < 2.0 UG/ML (10.0-30.0); ALBUMIN 4.1 GM/DL (3.2-5.2); ALT/SGPT 21 U/L (12-78); BILIRUBIN,DIRECT 0.1 MG/DL (0.0-0.2); BILIRUBIN,TOTAL 0.3 MG/DL (0.2-1.0); BLOOD UREA NITROGEN 6 MG/DL (7-18); CARBON DIOXIDE LEVEL 23 MEQ/L (21-32); CHLORIDE LEVEL 102 MEQ/L (98-107); CPK CREATINE PHOSPHOKINASE 75 U/L (39-308); CREATININE FOR GFR 0.87 MG/DL (0.70-1.30); ETHYL ALCOHOL (ETHANOL) 0.003 % (0.000-0.010); GLOMERULAR FILTRATION RATE > 60.0 (>60); GLUCOSE, FASTING 93 MG/DL (70-100); POTASSIUM SERUM 3.9 MEQ/L (3.5-5.1); SALICYLATE LEVEL 4.1 MG/DL (5.0-30.0); SODIUM LEVEL 133 MEQ/L (136-145); TOTAL PROTEIN 7.5 GM/DL (6.4-8.2)
[2020-07-27] MEDS ORDERED: MAALOX 30 ML SUSP *UDC PO PRN (01:45)
[2020-07-27] MEDS ORDERED: ACETAMINOPHEN TAB 650MG DOSE (2X325MG) PO PRN (01:45)
[2020-07-27] MEDS ORDERED: traZODone 50 MG TAB PO PRN (01:45)
[2020-07-27] MEDS ORDERED: OLANZapine ORAL DISINTEGRATING TAB 5MG PO PRN (01:45)
[2020-07-27] MEDS ORDERED: MOM 30ML SUSPENSION UDC PO PRN (01:45)
[2020-07-27] MEDS ORDERED: OLAN15TA PO (02:05)
[2020-07-27] MEDS ORDERED: RISP-9 PO (02:05)
[2020-07-27] MEDS ORDERED: BENZ-52 PO (02:05)
[2020-07-27 02:13] LABS: RSV AMPLIFICATION NEGATIVE (NEGATIVE)
[2020-07-27 04:02] VITALS: BP 148/97
[2020-07-27] MEDS: risperiDONE 2 MG TAB PO SCH ×2 (09:35→20:13)
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
[2020-07-27 14:47] VITALS: BP 111/74
[2020-07-27] MEDS: BENZTROPINE 1 MG TAB PO SCH (20:12)
[2020-07-27] MEDS: OLANZapine 5 MG TAB PO SCH (20:13)
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
[2020-07-28] MEDS: risperiDONE 2 MG TAB PO SCH ×2 (09:00→21:14)
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
[2020-07-28] MEDS ORDERED: haloperidoL 5 MG TAB PO ONE (13:30)
[2020-07-28] MEDS ORDERED: LORazepam 2 MG TAB PO ONE (13:30)
[2020-07-28 18:12] VITALS: BP 136/82
[2020-07-28] MEDS: OLANZapine 5 MG TAB PO SCH (21:14)
[2020-07-28] MEDS: BENZTROPINE 1 MG TAB PO SCH (21:14)
[2020-07-29 06:22] VITALS: BP 121/74
[2020-07-29] MEDS: risperiDONE 2 MG TAB PO SCH (09:00)
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
== END 2020-07-29 12:35 | disposition home or self-care (01) | DRG 750 ==
LOC: M ED 22:11 → M ED INP 22:12 → M PSY 07-27 02:59
PROVIDERS: ADMIT Psychiatry & Neurology Psychiatry; ATTEND Psychiatry & Neurology Psychiatry
DX: F20.0 Paranoid schizophrenia (principal); F70 Mild intellectual disabilities; F17.210 Nicotine dependence, cigarettes, uncomplicated; Z79.899 Other long term (current) drug therapy

== ENCOUNTER 2020-09-11 14:44 | Inpatient (IN) | payer MEDICAID, OTHER ==
[~2020-09-11] VITALS: Ht 157.5 cm; Wt 49.8 kg
--- OUTSIDE RECORDS SUMMARY | 2020-09-11 14:49 | CCD ---
Author Author [facility] Organization [facility] Address Unknown Phone Unavailable Care Team Providers Care Steel Cutter Name Role Phone SYSTEM, NOT IN PROVIDER Unavailable Unavailable Re-disclosure Warning The records that you are about to access may contain information from federally-assisted alcohol or drug abuse programs. If such information is present, then the following federally mandated warning applies: This information has been disclosed to you from records protected by federal confidentiality rules (42 CFR part 2). The federal rules prohibit you from making any further disclosure of this information unless further disclosure is expressly permitted by the written consent of the person to whom it pertains or as otherwise permitted by 42 CFR part 2. A general authorization for the release of medical or other information is NOT sufficient for this purpose. The Federal rules restrict any use of the information to criminally investigate or prosecute any alcohol or drug abuse patient.The records that you are about to access may contain highly sensitive health information, the redisclosure of which is protected by Article 27-F of the [facility] Public Health law. If you continue you may have access to information: Regarding HIV / AIDS; Provided by facilities licensed or operated by the [facility] Office of Mental Health; or Provided by the [facility] Office for People With Developmental Disabilities. If such information is present, then the following [facility] mandated warning applies: This information has been disclosed to you from confidential records which are protected by state law. State law prohibits you from making any further disclosure of this information without the specific written consent of the person to whom it pertains, or as otherwise permitted by law. Any unauthorized further disclosure in violation of state law may result in a fine or fpc sentence or both. A general authorization for the release of medical or other information is NOT sufficient authorization for further disc losure. Encounters Encounter Providers Location Date Indications Data Source(s ) Outpatient Referrer: PROVIDER SYSTEM [id number] 06/27/2020 08:3 7:00 AM EST [facility] Depression Outpatient [address] [address] 06/13/2020 12:00:00 AM EST [facility]CW1 [facility] [place] [address] [address] 01/15/2020 12:00:00 AM EDT eCW1 ([facility]) Outpatient [facility] 01/08/2020 07:56:59 PM EDT [facility] [address] [facility] [address] 11/28/2019 12:00:00 AM EDT eCW1 ([facility]) Insurance Providers Payer name Policy type / Coverage type Policy ID Covered green party ID Covered green party's relationship to plata Policy Plata Plan Information [facility] [id number] SP [id number] [facility] [id number] SP [id number] [id number] SP [id number] [facility] [id number] SP [id number] [facility] [id number] SP [id number] [facility] [id number] ANSI-Medicaid [id number] [facility] [id number] SP [id number] [facility]-Medicaid [id number] MEDICAID [id number] SP [id number] Problems, Conditions, and Diagnoses Code Display Name Description Problem Type Effective Dates Data Source(s) Depression Depression Diagnosis 06/27/2020 08:37:00 AM [facility] Results ID Date Data Source [id number] 07/27/2020 01:26:00 AM EST [facility] Name Value Range Interpretation Code Description Data Trinity rce(s) Supporting Document(s) SARS coronavirus 2 RNA [Presence] in Res piratory specimen by TRISTIN with probe detection [facility] This lab was ordered by [facility] a nd reported by [facility]. ID Date Data Source [id number] 07/19/2020 03:41:00 PM EST [facility] Name Value Range Interpretation Code Description Data Trinity rce(s) Supporting Document(s) SARS coronavirus 2 RNA [Presence] in Res piratory specimen by TRISTIN with probe detection [facility] This lab was ordered by [facility] a nd reported by [facility]. ID Date Data Source [id number] 07/10/2020 04:21:00 PM EST [facility] Name Value Range Interpretation Code Description Data Trinity rce(s) Supporting Document(s) SARS coronavirus 2 RNA [Presence] in Res piratory specimen by TRISTIN with probe detection [facility] This lab was ordered by [facility] a nd reported by [facility]. ID Date Data Source [id number] 06/27/2020 08:46:45 AM EST [facility] Name Value Range Interpretation Code Description Data Trinity rce(s) Supporting Document(s) Progress Note [facility] [id number] [facility] [file] [id number] Procedure Social History Code Duration Value Status Description Data Source(s ) Smoking 06/13/2020 12:00:00 AM EST Current Smoker completed Curre nt Smoker eCW1 ([facility]) Vital Signs ID Date Data Source UNK Name Value Range Interpretation Code Description Data Source(s) Diastolic blood pressure 78 mm[Hg] 78 mm[Hg] eCW1 ([facility]) Systolic blood pressure 118 mm[Hg] 118 mm[Hg] e CW1 ([facility]) Body temperature 97.8 [degF] 97.8 [degF] eCW1 ( [facility]) Respiratory rate 16 /min 16 /min eCW1 ([facility]) Heart rate 98 /min 98 /min eCW1 ([facility]) Body mass index (BMI) [Ratio] 23.29 kg/m2 23.29 kg/m2 eCW1 ([facility]) Body height 65 [in_i] 65 [in_i] eCW1 ([facility]) Body weight 140 [lb_av] 140 [lb_av] eCW1 ([facility]) ID Date Data Source [id number] 06/27/2020 08:46:45 AM [facility] Hospital Name Value Range Interpretation Code Description Data Source(s) TRANSFER FROM [facility]
[2020-09-11 15:25] LABS: HEMATOCRIT 42.3 % (42.0-52.0); HEMOGLOBIN 14.4 g/dl (13.5-17.5); MEAN CORPUSCULAR HEMOGLOBIN 29.4 pg (27.0-33.0); MEAN CORPUSCULAR VOLUME 86.5 fl (80.0-96.0); PLATELET COUNT, AUTOMATED 193 10^3/uL (150-450); RED BLOOD COUNT 4.89 10^6/uL (4.30-6.10); WHITE BLOOD COUNT 10.1 10^3/uL (4.0-10.0)
--- OUTSIDE RECORDS SUMMARY | 2020-09-11 16:09 | CCD ---
Author Author [facility] Organization [facility] Address Unknown Phone Unavailable Care Team Providers Care Director Of Culture Name Role Phone SYSTEM, NOT IN PROVIDER [...] is protected by Article 27-F of the [facility] Public Health law. If you continue you may have access to information: Regarding HIV / AIDS; Provided by facilities licensed or operated by the [facility] Office of Mental Health; or Provided by the [facility] Office for People With Developmental Disabilities. If such information is present, then the following [facility] mandated warning applies: This information has [...] law may result in a fine or assisted sentence or both. A general authorization for the release of medical or other information is NOT sufficient authorization for further disc losure. Encounters Encounter Providers Location Date Indications Data Source(s ) Outpatient Referrer: PROVIDER SYSTEM [id number] 06/27/2020 08:3 7:00 AM EST [facility] Depression Outpatient [address] [address] 06/13/2020 12:00:00 AM EST eCW1 ([facility]) [place] [address] [address] 01/15/2020 12:00:00 AM EDT eCW1 ([facility]) Outpatient [facility] 01/08/2020 07:56:59 PM EDT [facility] [address] [address] 11/28/2019 12:00:00 AM EDT eCW1 ([facility]ly [facility]) Insurance Providers Payer name Policy type / Coverage type Policy ID Covered libertarian ID Covered libertarian's relationship to plata Policy Plata Plan Information [facility] [id number] SP [id number] [facility] [id number] SP [id number] [place] [id number] SP [id number] [facility] [id number] SP [id number] [facility] [id number] SP [id number] [facility] [id number] ANSI-Medicaid [id number] [facility] [id number] SP [id number] [facility]-Med[facility] [id number] MEDICAID [id number] SP [id number] Problems, Conditions, and Diagnoses Code Display Name Description Problem Type Effective Dates Data Source(s) Depression Depression Diagnosis 06/27/2020 08:37:00 AM [facility] Results ID Date Data Source [id number] 07/27/2020 01:26:00 AM EST [facility] Name Value Range Interpretation Code Description Data Trinity rce(s) Supporting Document(s) SARS coronavirus 2 RNA [Presence] in Res piratory specimen by TRISTIN with probe detection [facility] This lab was ordered by [facility] a nd reported by [facility]. ID Date Data Source [id number] 07/19/2020 03:41:00 PM EST [facility] Name Value Range Interpretation Code Description Data Trinity rce(s) Supporting Document(s) SARS coronavirus 2 RNA [Presence] in Res piratory specimen by TRISTIN with probe detection [facility] This lab was ordered by [facility] a nd reported by [facility]. ID Date Data Source [id number] 07/10/2020 04:21:00 PM EST [facility] Name Value Range Interpretation Code Description Data Trinity rce(s) Supporting Document(s) SARS coronavirus 2 RNA [Presence] in Res piratory specimen by TRISTIN with probe detection [facility] This lab was ordered by [facility] a nd reported by [facility]. ID Date Data Source [id number] 06/27/2020 08:46:[address] [facility] Name Value Range Interpretation Code Description Data Trinity rce(s) Supporting Document(s) Progress Note [facility] [id number] [facility] [file] [id number] Procedure Social History Code Duration Value Status Description Data Source(s ) Smoking 06/13/2020 12:00:00 AM EST Current Smoker completed Curre nt Smoker eCW1 ([facility]) Vital Signs ID Date Data Source UNK Name Value Range Interpretation Code Description Data Source(s) Diastolic blood pressure 78 mm[Hg] 78 mm[Hg] eCW1 ([facility]) Systolic blood pressure 118 mm[Hg] 118 mm[Hg] e CW1 ([facility]) Body temperature 97.8 [degF] 97.8 [degF] eCW1 ( [facility]) Respiratory rate 16 /min 16 /min eCW1 ([facility]) Heart rate 98 /min 98 /min eCW1 ([facility]) Body mass index (BMI) [Ratio] 23.29 kg/m2 23.29 kg/m2 eCW1 ([facility]) Body height 65 [in_i] 65 [in_i] eCW1 ([facility]) Body weight 140 [lb_av] 140 [lb_av] eCW1 ([facility]) ID Date Data Source [id number] 06/27/2020 08:46:45 AM [facility] Name Value Range Interpretation Code Description Data Source(s) TRANSFER FROM [facility]
[2020-09-11 16:13] LABS: AMPHETAMINES LEVEL URINE NEGATIVE (NEGATIVE); BARBITURATES URINE NEGATIVE (NEGATIVE); BENZODIAZEPINES URINE NEGATIVE (NEGATIVE); CANNABINOIDS URINE NEGATIVE (NEGATIVE); COCAINE METABOLITE URINE NEGATIVE (NEGATIVE); METHADONE URINE NEGATIVE (NEGATIVE); OPIATES URINE NEGATIVE (NEGATIVE); PHENCYCLIDINE URINE NEGATIVE (NEGATIVE)
[2020-09-11 16:13] LABS: ACETAMINOPHEN LEVEL < 2.0 UG/ML (10.0-30.0); ALBUMIN 3.9 GM/DL (3.2-5.2); ALT/SGPT 23 U/L (12-78); BILIRUBIN,DIRECT < 0.1 MG/DL (0.0-0.2); BILIRUBIN,TOTAL 0.4 MG/DL (0.2-1.0); BLOOD UREA NITROGEN 5 MG/DL (7-18); CALCIUM LEVEL 8.4 MG/DL (8.5-10.1); CARBON DIOXIDE LEVEL 26 MEQ/L (21-32); CHLORIDE LEVEL 101 MEQ/L (98-107); CREATININE FOR GFR 0.87 MG/DL (0.70-1.30); ETHYL ALCOHOL (ETHANOL) 0.004 % (0.000-0.010); GLOMERULAR FILTRATION RATE > 60.0 (>60); GLUCOSE, FASTING 113 MG/DL (70-100); POTASSIUM SERUM 4.7 MEQ/L (3.5-5.1); SALICYLATE LEVEL 4.5 MG/DL (5.0-30.0); SODIUM LEVEL 135 MEQ/L (136-145); TOTAL PROTEIN 7.3 GM/DL (6.4-8.2)
[2020-09-11] MEDS ORDERED: traZODone 50 MG TAB PO PRN (17:15)
[2020-09-11] MEDS ORDERED: ACETAMINOPHEN TAB 650MG DOSE (2X325MG) PO PRN (17:15)
[2020-09-11] MEDS ORDERED: MOM 30ML SUSPENSION UDC PO PRN (17:15)
[2020-09-11] MEDS ORDERED: MAALOX 30 ML SUSP *UDC PO PRN (17:15)
--- OUTSIDE RECORDS SUMMARY | 2020-09-11 17:20 | CCD ---
Author Author [facility] Organization [facility] Address Unknown Phone Unavailable Care Team Providers Care Inspector Fibrous Wallboard Name Role Phone SYSTEM, NOT IN PROVIDER [...] is protected by Article 27-F of the [facility] Public Health law. If you continue you may have access to information: Regarding HIV / AIDS; Provided by facilities licensed or operated by the [facility] Office of Mental Health; or Provided by the [facility] Office for People With Developmental Disabilities. If such information is present, then the following [facility] mandated warning applies: This information has [...] law may result in a fine or chcf sentence or both. A general authorization for the release of medical or other information is NOT sufficient authorization for further disc losure. Encounters Encounter Providers Location Date Indications Data Source(s ) Outpatient Referrer: PROVIDER SYSTEM [id number] 06/27/2020 08:3 7:00 AM EST [facility] Depression Outpatient [address] [place] [address] 06/13/2020 12:00:00 AM EST eCW1 ([facility] Unknown [address] [place] [address] 01/15/2020 12:00:00 AM EDT eCW1 ([facility]) Outpatient [facility] 01/08/2020 07:56:59 PM EDT [facility] [address] [place] [address] 11/28/2019 12:00:00 AM EDT eCW1 ([facility]) Insurance Providers Payer name Policy type / Coverage type Policy ID Covered green party ID Covered green party's relationship to plata Policy Plata Plan Information [facility] COMM[facility] PLAN [facility] [id number] SP [id number] [facility] [id number] SP [id number] [place] [id number] SP [id number] [facility] [id number] SP [id number] [facility] COMMUN[facility] PLAN [facility] [id number] SP [id number] [facility] [id number] ANSI-Medicaid [id number] [facility] COMMUNITY PLAN [facility] [id number] SP [id number] [facility] [id number] MEDICAID [id number] SP [id number] Problems, Conditions, and Diagnoses Code Display Name Description Problem Type Effective Dates Data Source(s) Depression Depression Diagnosis 06/27/2020 08:37:00 AM [facility] Results ID Date Data Source [id number] 07/27/2020 01:26:00 AM EST [facility] Name Value Range Interpretation Code Description Data Trinity rce(s) Supporting Document(s) SARS coronavirus 2 RNA [Presence] in Res piratory specimen by TRISTIN with probe detection [facility] This lab was ordered by [facility] a nd reported by [facility]. ID Date Data Source [id number] 07/19/2020 03:41:00 PM EST [facility] Name Value Range Interpretation Code Description Data Trinity rce(s) Supporting Document(s) SARS coronavirus 2 RNA [Presence] in Res piratory specimen by TRISTIN with probe detection [facility] This lab was ordered by [facility] a nd reported by [facility]. ID Date Data Source [id number] 07/10/2020 04:21:00 PM EST [facility] Name Value Range Interpretation Code Description Data Trinity rce(s) Supporting Document(s) SARS coronavirus 2 RNA [Presence] in Res piratory specimen by TRISTIN with probe detection [facility] This lab was ordered by [facility] a nd reported by [facility]. ID Date Data Source [id number] 06/27/2020 08:46:45 AM EST [facility] Name Value Range Interpretation Code Description Data Trinity rce(s) Supporting Document(s) Progress Note [facility] [id number] [facility] [file] [id number] Procedure Social History Code Duration Value Status Description Data Source(s ) Smoking 06/13/2020 12:00:00 AM EST Current Smoker completed Curre nt Smoker eCW1 ([facility]) Vital Signs ID Date Data Source UNK Name Value Range Interpretation Code Description Data Source(s) Diastolic blood pressure 78 mm[Hg] 78 mm[Hg] eCW1 ([facility]) Systolic blood pressure 118 mm[Hg] 118 mm[Hg] e CW1 ([facility]) Body temperature 97.8 [degF] 97.8 [degF] eCW1 ( [facility]) Respiratory rate 16 /min 16 /min eCW1 ([facility]) Heart rate 98 /min 98 /min eCW1 ([facility]) Body mass index (BMI) [Ratio] 23.29 kg/m2 23.29 kg/m2 eCW1 ([facility]) Body height 65 [in_i] 65 [in_i] eCW1 ([facility]) Body weight 140 [lb_av] 140 [lb_av] eCW1 ([facility]) ID Date Data Source [id number] 06/27/2020 08:46:45 AM [facility] Hospital Name Value Range Interpretation Code Description Data Source(s) TRANSFER FROM [facility]
[2020-09-11 19:23] LABS: RSV AMPLIFICATION NEGATIVE (NEGATIVE)
[2020-09-11] MEDS: BENZTROPINE 1 MG TAB PO SCH (21:00)
[2020-09-11] MEDS: OLANZapine 5 MG TAB PO SCH (21:00)
[2020-09-12] MEDS: OLANZapine ORAL DISINTEGRATING TAB 5MG PO PRN (08:34)
[2020-09-12] MEDS: NICOTINE 21MG/24HR 1 EA TRANSDERMAL TD SCH (08:41)
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
[2020-09-12 19:12] VITALS: BP 134/86
[2020-09-12] MEDS: BENZTROPINE 1 MG TAB PO SCH (20:27)
[2020-09-12] MEDS: OLANZapine 5 MG TAB PO SCH (20:27)
[2020-09-13 06:36] VITALS: BP 112/83
[2020-09-13] MEDS: NICOTINE 21MG/24HR 1 EA TRANSDERMAL TD SCH (09:00)
[2020-09-13] MEDS: OLANZapine ORAL DISINTEGRATING TAB 5MG PO PRN ×2 (17:43→20:27)
[2020-09-13 18:32] VITALS: BP 139/84
[2020-09-13] MEDS: BENZTROPINE 1 MG TAB PO SCH (20:26)
[2020-09-13] MEDS: OLANZapine 5 MG TAB PO SCH (20:27)
[2020-09-14] MEDS: NICOTINE 21MG/24HR 1 EA TRANSDERMAL TD SCH (08:27)
[2020-09-14] MEDS: OLANZapine ORAL DISINTEGRATING TAB 5MG PO PRN (09:34)
[2020-09-14] MEDS ORDERED: OLANZapine ORAL DISINTEGRATING TAB 5MG PO PRN (11:00)
[2020-09-14 17:00] VITALS: BP 141/95
[2020-09-14] MEDS: OLANZapine 5 MG TAB PO SCH (20:23)
[2020-09-14] MEDS: BENZTROPINE 1 MG TAB PO SCH (20:23)
[2020-09-15] MEDS ORDERED: haloperidoL 5 MG TAB PO STA (01:48)
[2020-09-15] MEDS ORDERED: LORazepam 1 MG TAB PO STA (01:48)
[2020-09-15] MEDS: NICOTINE 21MG/24HR 1 EA TRANSDERMAL TD SCH (09:00)
--- NOTE | 2020-09-15 15:12 | MHIPNPDOC ---
[facility] Progress Note Progress Note DATE OF SERVICE: 09/15/20 HISTORY: Patient with hx of schizoaffective disorder was admitted to psych unit for SI. VITAL SIGNS: See below. CURRENT MEDICATIONS: See below. MENTAL STATUS EXAMINATION: Patient is a 44-year old male, who is admitted to psych unit for SI. During the interview, patient made good eye contact but remained delusional. Speech: Is pressured, but normal in tone and volume. Language skills are intact. Thought processes including: circumstantial and tangential. Thought content: Patient denies SI, HI, AH and VH. Abstract reasoning, and computation: Poor. Description of associations: Patient continued to associate himself with [place] and his Clan. He also stated he is trying to contact his girlfriend Teresita. Description of abnormal or psychotic thoughts: Patient reported that he has been applying toothpaste all over his body as a secret recipe to protect himself from COVID. Patient continued to mention his " heritage" and connection with [place]. Judgment: Poor Insight: Poor Orientation: Alert and oriented x3. Recent and remote memory: Poor. Attention span and concentration: Distracted. Language: Expansive. Fund of knowledge: Average. Mood: euthymic. Affect: normal. DIAGNOSES: 1. Schizoaffective disorder, bipolar type ASSESSMENT: During the interview today, patient continued to be delusional and have flight of ideas and pressured speech. He was alert and oriented x3. Patient reported he applied toothpaste all over his body as a secret recipe to protect himself from COVID. He also requested his medication to be sublingual for convenience. He stated he has been working with [place] police department to close down the snf system and prefers his medication to be sublingual so that he can take it anytime in case he is called by the [place] police. He denied SI, HI, AH & VH. MANAGEMENT PLAN: 1. Schizoaffective disorder, bipolar type - Cont current regimen - Delusions appears to be baseline, patient denied SI,HI, AH, VH - stable for discharge, plan to be discharged by Tuesday TIME SPENT: 25 minutes. Vital Signs Vital Signs Date Time Temp Pulse Resp B/P (MAP) Pulse Ox O2 Delivery O2 Flow Rate FiO2 09/14/20 17:00 97.4 77 18 141/95 (110) 98 Room Air Current Medications Current Medications Medications (Trade) Dose Ordered Sig/Rd Route PRN Reason Start Time Stop Time Status Last Admin Dose Admin Acetaminophen (Tylenol Tab) 650 mg Q6HP PRN PO HEADACHE or DISCOMFORT 09/11/20 17:15 Al Hydrox/Mg Hydrox/Simethicone (Mylanta) 30 ml Q4HP PRN PO HEARTBURN/INDIGESTION 09/11/20 17:15 Benztropine Mesylate (Cogentin) 3 mg QHS PO 09/11/20 21:00 09/14/20 20:23 Haloperidol (Haldol) 5 mg STAT STAT PO 09/15/20 01:48 09/15/20 01:50 DC 09/15/20 01:51 Home Med (Med Rec Complete!) ASDIRECTED XX 09/11/20 18:30 09/11/20 18:32 DC Lorazepam (Ativan) 1 mg STAT STAT PO 09/15/20 01:48 09/15/20 01:50 DC 09/15/20 01:51 Magnesium Hydroxide (Milk Of Magnesia) 30 ml DAILYPRN PRN PO CONSTIPATION 09/11/20 17:15 Nicotine (Nicoderm Cq 21mg) 1 patch DAILY TD 09/12/20 09:00 Olanzapine (ZyPREXA ZYDIS) 5 mg Q4HP PRN PO ANXIETY/AGITATION 09/13/20 19:45 09/14/20 11:02 DC 09/14/20 09:34 Olanzapine (ZyPREXA ZYDIS) 5 mg Q6HP PRN PO ANXIETY/AGITATION 09/11/20 17:15 09/13/20 19:43 DC 09/13/20 17:43 Olanzapine (ZyPREXA ZYDIS) 5 mg Q6HP PRN PO ANXIETY/AGITATION 09/14/20 11:00 09/14/20 20:24 Olanzapine (ZyPREXA) 15 mg QHS PO 09/11/20 21:00 09/14/20 20:23 Trazodone HCl (Desyrel) 50 mg QHSP PRN PO INSOMNIA 09/11/20 17:15 Allergies Coded Allergies: No Known Allergies (Verified , 09/22/05) WU MENEZES ACID SPLICER Sep 15, 2020 15:12
[2020-09-15 16:52] VITALS: BP 128/69
[2020-09-15] MEDS: BENZTROPINE 1 MG TAB PO SCH (21:34)
[2020-09-15] MEDS: OLANZapine 5 MG TAB PO SCH (21:34)
[2020-09-16] MEDS: NICOTINE 21MG/24HR 1 EA TRANSDERMAL TD SCH (09:00)
--- NOTE | 2020-09-16 09:27 | MHIPN ---
[facility] PROGRESS NOTE DATE: 09/13/2020 VITAL SIGNS: Blood pressure 112/83, pulse 62, temperature 98.5. CHIEF COMPLAINT: Feels good. SUBJECTIVE: Seen for followup, this is by video, in the presence of staff. He says he feels good, and that he is on the right medicines, says he slept well, speaks about various matters, quite rapidly, and tangentially, including being a vegetarian, and matters related to [place], how he intends moving there when he can. MENTAL STATUS EXAMINATION: He is neat, he is cooperative, speech is over productive, tangential, he is coherent for brief periods, affect is somewhat intense, does not appear internally preoccupied, delusions are mostly grandiose, cognition grossly intact, judgment and insight are compromised. ASSESSMENT: Schizoaffective disorder, bipolar type, current episode possibly manic. PLAN: Continue current care, he is on olanzapine at 15 mg at night, benztropine 3 mg at night. He does not wish for his medicine to be changed at all, suggests he is doing well, but his insight is compromised. Will continue with current observations as well.
[2020-09-16] MEDS ORDERED: INVE234I IM (10:13)
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
--- NOTE | 2020-09-16 17:18 | MHIPN ---
[facility], [facility]–1983 PROGRESS NOTE DATE: 09/14/2020 VITAL SIGNS: Blood pressure 139/84, pulse 89, temperature 97.8. CHIEF COMPLAINT: Says feels good. SUBJECTIVE: He is seen for followup, this is in the presence of staff, via video. 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 MENTAL STATUS EXAMINATION: Neat, cooperative, speech is rapid, but somewhat less so than yesterday, he is tangential in thought, affect somewhat less labile, delusions remain grandiose, cognition is grossly intact, denies suicidal or homicidal ideas or intents, judgment and insight are compromised. ASSESSMENT: Schizoaffective disorder, bipolar type. PLAN: Continue current care, and will look at his using olanzapine a bit more frequently, as needed. The scheduled dose will remain at 15 mg, and I would suggest that the maximum daily dose, including the as needed doses, not exceed 25 mg a day. Continue other recommendations as current. Further recommendations will be made depending on the clinical picture.
== END 2020-09-16 12:00 | disposition home or self-care (01) | DRG 750 ==
LOC: M ED 14:44 → M ED INP 17:09 → M PSY 20:50
PROVIDERS: ADMIT Psychiatry & Neurology Psychiatry; ATTEND Psychiatry & Neurology Psychiatry
DX: F25.0 Schizoaffective disorder, bipolar type (principal); F70 Mild intellectual disabilities; G25.2 Other specified forms of tremor; Z79.899 Other long term (current) drug therapy

== ENCOUNTER 2020-10-20 14:49 | Inpatient (IN) | payer MEDICAID, OTHER ==
[~2020-10-20] VITALS: Ht 160 cm; Wt 56.3 kg
[2020-10-20 15:35] LABS: HEMATOCRIT 41.4 % (42.0-52.0); HEMOGLOBIN 14.7 g/dl (13.5-17.5); MEAN CORPUSCULAR HEMOGLOBIN 30.2 pg (27.0-33.0); MEAN CORPUSCULAR HGB CONC 35.5 g/dl (32.0-36.5); MEAN CORPUSCULAR VOLUME 85.2 fl (80.0-96.0); PLATELET COUNT, AUTOMATED 250 10^3/uL (150-450); RED BLOOD COUNT 4.86 10^6/uL (4.30-6.10); WHITE BLOOD COUNT 10.1 10^3/uL (4.0-10.0)
[2020-10-20 16:11] LABS: ACETAMINOPHEN LEVEL < 2.0 UG/ML (10.0-30.0); ALT/SGPT 20 U/L (12-78); BILIRUBIN,DIRECT 0.2 MG/DL (0.0-0.2); BILIRUBIN,TOTAL 0.5 MG/DL (0.2-1.0); BLOOD UREA NITROGEN 16 MG/DL (7-18); CALCIUM LEVEL 9.3 MG/DL (8.5-10.1); CARBON DIOXIDE LEVEL 25 MEQ/L (21-32); CHLORIDE LEVEL 97 MEQ/L (98-107); CREATININE FOR GFR 1.13 MG/DL (0.70-1.30); ETHYL ALCOHOL (ETHANOL) < 0.003 % (0.000-0.010); GLOMERULAR FILTRATION RATE > 60.0 (>60); GLUCOSE, FASTING 145 MG/DL (70-100); POTASSIUM SERUM 3.7 MEQ/L (3.5-5.1); SALICYLATE LEVEL 4.3 MG/DL (5.0-30.0); SODIUM LEVEL 131 MEQ/L (136-145); TOTAL PROTEIN 7.5 GM/DL (6.4-8.2)
[2020-10-20 17:02] LABS: AMPHETAMINES LEVEL URINE NEGATIVE (NEGATIVE); BARBITURATES URINE NEGATIVE (NEGATIVE); BENZODIAZEPINES URINE NEGATIVE (NEGATIVE); CANNABINOIDS URINE NEGATIVE (NEGATIVE); COCAINE METABOLITE URINE NEGATIVE (NEGATIVE); METHADONE URINE NEGATIVE (NEGATIVE); OPIATES URINE NEGATIVE (NEGATIVE); PHENCYCLIDINE URINE NEGATIVE (NEGATIVE)
[2020-10-20] MEDS ORDERED: ARIS1064 IM (18:50)
[2020-10-20] MEDS ORDERED: MAALOX 30 ML SUSP *UDC PO PRN (19:20)
[2020-10-20] MEDS ORDERED: ACETAMINOPHEN TAB 650MG DOSE (2X325MG) PO PRN (19:20)
[2020-10-20] MEDS ORDERED: MOM 30ML SUSPENSION UDC PO PRN (19:20)
[2020-10-20] MEDS ORDERED: traZODone 50 MG TAB PO PRN (19:20)
[2020-10-20 19:38] LABS: RSV AMPLIFICATION NEGATIVE (NEGATIVE)
[2020-10-20 21:16] VITALS: BP 107/78
[2020-10-21 06:37] VITALS: BP 118/80
[2020-10-21] MEDS ORDERED: PALIPERIDONE 6 MG ER TAB (INVEGA) PO SCH (09:00)
[2020-10-21] MEDS ORDERED: LORazepam 2 MG TAB PO PRN (09:15)
[2020-10-21] MEDS ORDERED: diphenhydrAMINE 50MG CAP PO PRN (09:15)
[2020-10-21] MEDS ORDERED: haloperidoL 5 MG TAB PO PRN (09:15)
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
[2020-10-21 12:00] LABS: BLOOD UREA NITROGEN 11 MG/DL (7-18); CALCIUM LEVEL 8.8 MG/DL (8.5-10.1); CARBON DIOXIDE LEVEL 24 MEQ/L (21-32); CHLORIDE LEVEL 99 MEQ/L (98-107); CREATININE FOR GFR 0.73 MG/DL (0.70-1.30); GLOMERULAR FILTRATION RATE > 60.0 (>60); GLUCOSE, FASTING 89 MG/DL (70-100); POTASSIUM SERUM 5.6 MEQ/L (3.5-5.1); SODIUM LEVEL 129 MEQ/L (136-145)
[2020-10-21 17:01] VITALS: BP 124/80
[2020-10-21] MEDS: OLANZapine ORAL DISINTEGRATING TAB 5MG PO PRN (17:58)
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
[2020-10-22 06:43] VITALS: BP 102/59
--- NOTE | 2020-10-22 07:05 | MHIPNPDOC ---
[facility] Progress Note Progress Note DATE OF SERVICE: 10/22/20 HISTORY: Patient is hostile and threatening. He is constantly walking the unit. He continues delusional. He has been begun on palperidone oral. General Appearance: ds/not appear stated age Build: thin Demeanor: hostile, guarded Eye Contact: avoidant Activity: agitated Behavior: uncooperative, agitated, impulsive, assaultive, restless Speech: clear, pressured Mood: angry, irritable Affect: constricted Thought Process: circumstantial, tangential, loose, flight of ideas Thought Content grandiose, persecutory, bizarre, paranoia, delusions Thought Content guarded Thought Content aggressive intent, plan Perception (Hallucinations): none reported Perception (Other): none reported Cognition (Impairment of): poor attention/concentration, ability to abstract Cognition(Intelligence Est.): average Oriented: Awake, Alert, Oriented times three Insight: poor DIAGNOSES: 1. Chronic schizophrenia. ASSESSMENT: More historical information is needed. Clarification of patient's legal status. Also MANAGEMENT PLAN:, Continue observation. Continue medication. Continue gathering information. TIME SPENT: 25 minutes. Vital Signs Vital Signs Date Time Temp Pulse Resp B/P (MAP) Pulse Ox O2 Delivery O2 Flow Rate FiO2 10/22/20 06:43 98.2 74 16 102/59 (73) 98 Room Air Laboratory Data 24H Labs Laboratory Tests 2 10/21/20 11:13: Anion Gap 6L, Glomerular Filtration Rate > 60.0, Calcium Level 8.8 CBC/BMP Laboratory Tests 10/21/20 11:13 Current Medications Current Medications Medications (Trade) Dose Ordered Sig/Rd Route PRN Reason Start Time Stop Time Status Last Admin Dose Admin Acetaminophen (Tylenol Tab) 650 mg Q6HP PRN PO HEADACHE or DISCOMFORT 10/20/20 19:20 Al Hydrox/Mg Hydrox/Simethicone (Mylanta) 30 ml Q4HP PRN PO HEARTBURN/INDIGESTION 10/20/20 19:20 Diphenhydramine HCl (Benadryl) 50 mg Q6HP PRN PO AGITATION 10/21/20 09:15 Haloperidol (Haldol) 5 mg Q6HP PRN PO AGITATION 10/21/20 09:15 Home Med (Med Rec Complete!) ASDIRECTED XX 10/20/20 18:55 10/20/20 18:52 DC Lorazepam (Ativan) 2 mg Q6HP PRN PO ANXIETY/AGITATION 10/21/20 09:15 Magnesium Hydroxide (Milk Of Magnesia) 30 ml DAILYPRN PRN PO CONSTIPATION 10/20/20 19:20 Olanzapine (ZyPREXA ZYDIS) 5 mg Q6HP PRN PO AGITATION 10/20/20 19:20 10/21/20 17:58 Paliperidone (Invega) 6 mg DAILY PO 10/21/20 09:00 10/21/20 09:49 Trazodone HCl (Desyrel) 50 mg QHSP PRN PO INSOMNIA 10/20/20 19:20 Allergies Coded Allergies: No Known Allergies (Verified , 09/22/05) JARED CHAVIS MD Oct 22, 2020 07:05
[2020-10-22 07:12] LABS: HEMATOCRIT 42.4 % (42.0-52.0); HEMOGLOBIN 14.5 g/dl (13.5-17.5); MEAN CORPUSCULAR HEMOGLOBIN 29.6 pg (27.0-33.0); MEAN CORPUSCULAR HGB CONC 34.2 g/dl (32.0-36.5); MEAN CORPUSCULAR VOLUME 86.5 fl (80.0-96.0); PLATELET COUNT, AUTOMATED 251 10^3/uL (150-450); WHITE BLOOD COUNT 12.6 10^3/uL (4.0-10.0)
[2020-10-22 07:39] LABS: ALBUMIN 3.4 GM/DL (3.2-5.2); ALT/SGPT 18 U/L (12-78); BILIRUBIN,TOTAL 0.2 MG/DL (0.2-1.0); BLOOD UREA NITROGEN 13 MG/DL (7-18); CALCIUM LEVEL 8.7 MG/DL (8.5-10.1); CARBON DIOXIDE LEVEL 26 MEQ/L (21-32); CHLORIDE LEVEL 103 MEQ/L (98-107); CREATININE FOR GFR 0.89 MG/DL (0.70-1.30); GLOMERULAR FILTRATION RATE > 60.0 (>60); GLUCOSE, FASTING 87 MG/DL (70-100); POTASSIUM SERUM 4.5 MEQ/L (3.5-5.1); SODIUM LEVEL 135 MEQ/L (136-145)
[2020-10-22] MEDS: PALIPERIDONE 3 MG ER TAB (INVEGA) PO SCH (09:00)
[2020-10-22 17:34] VITALS: BP 138/81
[2020-10-23 06:55] VITALS: BP 137/86
--- NOTE | 2020-10-23 08:56 | MHIPNPDOC ---
[facility] Progress Note Progress Note DATE OF SERVICE: 10/23/20 HISTORY: . VITAL SIGNS: See below. HISTORY: Patient is less threatening. He is constantly walking the unit. He continues grandiose and paranoid. He continues delusional. He has been begun on palperidone oral but has refused his medication the majority of times. General Appearance: appear stated age Build: thin Demeanor: hostile, guarded Eye Contact: avoidant Activity: agitated Behavior: uncooperative, agitated, impulsive, assaultive, restless Speech: clear, pressured Mood: angry, irritable Affect: constricted Thought Process: circumstantial, tangential, loose, flight of ideas Thought Content grandiose, persecutory, bizarre, paranoia, delusions Thought Content guarded Thought Content aggressive intent, plan Perception (Hallucinations): none reported Perception (Other): none reported Cognition (Impairment of): poor attention/concentration, ability to abstract Cognition(Intelligence Est.): average Oriented: Awake, Alert, Oriented times three Insight: poor DIAGNOSES: 1. Chronic schizophrenia. ASSESSMENT: More historical information is needed. Clarification of patient's legal status. MANAGEMENT PLAN:, Continue observation. Continue encourage medication. Continue gathering information. TIME SPENT: 25 minutes. s. Vital Signs Vital Signs Date Time Temp Pulse Resp B/P (MAP) Pulse Ox O2 Delivery O2 Flow Rate FiO2 10/23/20 06:55 97.3 72 18 137/86 (103) 99 Room Air Current Medications Current Medications Medications (Trade) Dose Ordered Sig/Rd Route PRN Reason Start Time Stop Time Status Last Admin Dose Admin Acetaminophen (Tylenol Tab) 650 mg Q6HP PRN PO HEADACHE or DISCOMFORT 10/20/20 19:20 Al Hydrox/Mg Hydrox/Simethicone (Mylanta) 30 ml Q4HP PRN PO HEARTBURN/INDIGESTION 10/20/20 19:20 Diphenhydramine HCl (Benadryl) 50 mg Q6HP PRN PO AGITATION 10/21/20 09:15 Haloperidol (Haldol) 5 mg Q6HP PRN PO AGITATION 10/21/20 09:15 Home Med (Med Rec Complete!) ASDIRECTED XX 10/20/20 18:55 10/20/20 18:52 DC Lorazepam (Ativan) 2 mg Q6HP PRN PO ANXIETY/AGITATION 10/21/20 09:15 Magnesium Hydroxide (Milk Of Magnesia) 30 ml DAILYPRN PRN PO CONSTIPATION 10/20/20 19:20 Olanzapine (ZyPREXA ZYDIS) 5 mg Q6HP PRN PO AGITATION 10/20/20 19:20 10/21/20 17:58 Paliperidone (Invega) 6 mg DAILY PO 10/21/20 09:00 10/22/20 09:14 DC 10/21/20 09:49 Paliperidone (Invega) 9 mg DAILY PO 10/22/20 09:00 Trazodone HCl (Desyrel) 50 mg QHSP PRN PO INSOMNIA 10/20/20 19:20 Allergies Coded Allergies: No Known Allergies (Verified , 09/22/05) JARED CHAVIS MD Oct 23, 2020 08:56
[2020-10-23] MEDS: PALIPERIDONE 3 MG ER TAB (INVEGA) PO SCH (09:00)
[2020-10-24 06:25] VITALS: BP 123/72
--- NOTE | 2020-10-24 07:02 | MHIPNPDOC ---
[facility] Progress Note Progress Note DATE OF SERVICE: 10/24/20 HISTORY: Patient is less threatening. He is constantly walking the unit. He continues grandiose and paranoid. He continues delusional. He has been begun on palperidone oral but has refused his medication the majority of times. Discussed with Ruby Wisdom Melvin. In his delusional state he asked for her to be his clinician so we think maybe he will be more compliant with medications. However when I told him he said no because" she is a woman". General Appearance: appear stated age Build: thin Demeanor: hostile, guarded Eye Contact: avoidant Activity: agitated Behavior: uncooperative, agitated, impulsive, assaultive, restless Speech: clear, pressured Mood: angry, irritable Affect: constricted Thought Process: circumstantial, tangential, loose, flight of ideas Thought Content grandiose, persecutory, bizarre, paranoia, delusions Thought Content guarded Thought Content aggressive intent, plan Perception (Hallucinations): none reported Perception (Other): none reported Cognition (Impairment of): poor attention/concentration, ability to abstract Cognition(Intelligence Est.): average Oriented: Awake, Alert, Oriented times three Insight: poor DIAGNOSES: 1. Chronic schizophrenia. ASSESSMENT: More historical information is needed. Clarification of patient's legal status. Continue to encourage medication. MANAGEMENT PLAN:, Continue observation. Continue encourage medication. Continue gathering information. TIME SPENT: 25 minutes. Vital Signs Vital Signs Date Time Temp Pulse Resp B/P (MAP) Pulse Ox O2 Delivery O2 Flow Rate FiO2 10/24/20 06:25 96.6 76 18 123/72 (89) 100 Room Air Current Medications Current Medications Medications (Trade) Dose Ordered Sig/Rd Route PRN Reason Start Time Stop Time Status Last Admin Dose Admin Acetaminophen (Tylenol Tab) 650 mg Q6HP PRN PO HEADACHE or DISCOMFORT 10/20/20 19:20 Al Hydrox/Mg Hydrox/Simethicone (Mylanta) 30 ml Q4HP PRN PO HEARTBURN/INDIGESTION 10/20/20 19:20 Diphenhydramine HCl (Benadryl) 50 mg Q6HP PRN PO AGITATION 10/21/20 09:15 Haloperidol (Haldol) 5 mg Q6HP PRN PO AGITATION 10/21/20 09:15 Home Med (Med Rec Complete!) ASDIRECTED XX 10/20/20 18:55 10/20/20 18:52 DC Lorazepam (Ativan) 2 mg Q6HP PRN PO ANXIETY/AGITATION 10/21/20 09:15 Magnesium Hydroxide (Milk Of Magnesia) 30 ml DAILYPRN PRN PO CONSTIPATION 10/20/20 19:20 Olanzapine (ZyPREXA ZYDIS) 5 mg Q6HP PRN PO AGITATION 10/20/20 19:20 10/21/20 17:58 Paliperidone (Invega) 6 mg DAILY PO 10/21/20 09:00 10/22/20 09:14 DC 10/21/20 09:49 Paliperidone (Invega) 9 mg DAILY PO 10/22/20 09:00 Trazodone HCl (Desyrel) 50 mg QHSP PRN PO INSOMNIA 10/20/20 19:20 Allergies Coded Allergies: No Known Allergies (Verified , 09/22/05) JARED CHAVIS MD Oct 24, 2020 07:02
[2020-10-24] MEDS: PALIPERIDONE 3 MG ER TAB (INVEGA) PO SCH (08:45)
[2020-10-24 16:48] VITALS: BP 129/83
[2020-10-25 06:53] VITALS: BP 125/75
[2020-10-25] MEDS: PALIPERIDONE 3 MG ER TAB (INVEGA) PO SCH (08:52)
[2020-10-26 06:43] VITALS: BP 120/78
[2020-10-26] MEDS: PALIPERIDONE 3 MG ER TAB (INVEGA) PO SCH (09:00)
--- NOTE | 2020-10-26 10:00 | MHIPNPDOC ---
[facility] Progress Note Progress Note DATE OF SERVICE: 10/26/20 HISTORY: Patient is now more threatening. "Dr Mcclelland is my doctor!! I am going to jovanna you! I am in the [employer]!!!" He is constantly walking the unit. He continues grandiose and paranoid. He continues delusional. He has been begun on palperidone oral but has refused his medication the majority of times. Discussed with Ruby Charles. In his delusional state he asked for her to be his clinician so we think maybe he will be more compliant with medications. However when I told him he said no because" she is a woman". General Appearance: appear stated age Build: thin Demeanor: hostile, guarded Eye Contact: avoidant Activity: agitated loud Behavior: uncooperative, agitated, impulsive, assaultive, restless Speech: clear, pressured Mood: angry, irritable Affect: constricted Thought Process: circumstantial, tangential, loose, flight of ideas Thought Content grandiose, persecutory, bizarre, paranoia, delusions Thought Content guarded Thought Content aggressive intent, plan Perception (Hallucinations): none reported Perception (Other): Delusional Cognition (Impairment of): poor attention/concentration, ability to abstract Cognition(Intelligence Est.): average Oriented: Awake, Alert, Oriented times three Insight: poor DIAGNOSES: 1. Chronic schizophrenia. ASSESSMENT: Clarification of patient's legal status. Continue to encourage medication. MANAGEMENT PLAN:, Continue observation. Continue encourage medication. TIME SPENT: 25 minutes. Vital Signs Vital Signs Date Time Temp Pulse Resp B/P (MAP) Pulse Ox O2 Delivery O2 Flow Rate FiO2 10/26/20 08:25 Room Air 10/26/20 06:43 98.2 76 20 120/78 (92) 98 Current Medications Current Medications Medications (Trade) Dose Ordered Sig/Rd Route PRN Reason Start Time Stop Time Status Last Admin Dose Admin Acetaminophen (Tylenol Tab) 650 mg Q6HP PRN PO HEADACHE or DISCOMFORT 10/20/20 19:20 Al Hydrox/Mg Hydrox/Simethicone (Mylanta) 30 ml Q4HP PRN PO HEARTBURN/INDIGESTION 10/20/20 19:20 Diphenhydramine HCl (Benadryl) 50 mg Q6HP PRN PO AGITATION 10/21/20 09:15 Haloperidol (Haldol) 5 mg Q6HP PRN PO AGITATION 10/21/20 09:15 Home Med (Med Rec Complete!) ASDIRECTED XX 10/20/20 18:55 10/20/20 18:52 DC Lorazepam (Ativan) 2 mg Q6HP PRN PO ANXIETY/AGITATION 10/21/20 09:15 Magnesium Hydroxide (Milk Of Magnesia) 30 ml DAILYPRN PRN PO CONSTIPATION 10/20/20 19:20 Olanzapine (ZyPREXA ZYDIS) 5 mg Q6HP PRN PO AGITATION 10/20/20 19:20 10/21/20 17:58 Paliperidone (Invega) 6 mg DAILY PO 10/21/20 09:00 10/22/20 09:14 DC 10/21/20 09:49 Paliperidone (Invega) 9 mg DAILY PO 10/22/20 09:00 Trazodone HCl (Desyrel) 50 mg QHSP PRN PO INSOMNIA 10/20/20 19:20 Allergies Coded Allergies: No Known Allergies (Verified , 09/22/05) JARED CHAVIS MD Oct 26, 2020 10:00
[2020-10-27 06:44] VITALS: BP 133/89
[2020-10-27] MEDS: PALIPERIDONE 3 MG ER TAB (INVEGA) PO SCH (09:00)
[2020-10-28 06:44] VITALS: BP 129/76
[2020-10-28] MEDS: PALIPERIDONE 3 MG ER TAB (INVEGA) PO SCH (09:00)
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
[2020-10-29] MEDS: PALIPERIDONE 3 MG ER TAB (INVEGA) PO SCH (08:06)
[2020-10-29 16:31] VITALS: BP 123/86
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
[2020-10-29] MEDS: OLANZapine 10 MG TAB PO SCH (21:00)
[2020-10-30 06:43] VITALS: BP 180/98
[2020-10-30 07:32] VITALS: BP 158/88
[2020-10-30] MEDS ORDERED: ARIPIPRAZOLE LAUROXIL IM ONE (13:10)
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
[2020-10-30] MEDS: OLANZapine ORAL DISINTEGRATING TAB 5MG PO PRN (15:10)
[2020-10-30 16:19] VITALS: BP 139/89
[2020-10-30] MEDS: OLANZapine 10 MG TAB PO SCH (20:48)
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
[2020-10-31 16:18] VITALS: BP 134/87
[2020-10-31] MEDS: OLANZapine 10 MG TAB PO SCH (21:00)
[2020-10-31] MEDS: OLANZapine ORAL DISINTEGRATING TAB 5MG PO PRN (21:03)
[2020-11-01 06:29] VITALS: BP 113/67
[2020-11-01 16:25] VITALS: BP 131/82
[2020-11-01] MEDS: OLANZapine 10 MG TAB PO SCH (21:00)
[2020-11-02] MEDS: OLANZapine ORAL DISINTEGRATING TAB 5MG PO PRN ×2 (03:00→20:51)
[2020-11-02 16:34] VITALS: BP 135/89
[2020-11-02] MEDS: OLANZapine 10 MG TAB PO SCH (20:56)
[2020-11-03 06:00] VITALS: BP 133/87
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
[2020-11-03 19:07] VITALS: BP 134/77
[2020-11-03] MEDS: OLANZapine 10 MG TAB PO SCH (21:00)
[2020-11-03] MEDS: OLANZapine ORAL DISINTEGRATING TAB 5MG PO PRN (21:41)
[2020-11-04 07:13] VITALS: BP 133/63
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
[2020-11-04 18:11] VITALS: BP 140/88
[2020-11-04] MEDS: OLANZapine 10 MG TAB PO SCH (21:00)
[2020-11-05 06:00] VITALS: BP 132/92
[2020-11-05] MEDS ORDERED: OLAN5ZYD PO (10:49)
[2020-11-05] MEDS ORDERED: ARIS1064 IM (10:52)
[2020-11-05] MEDS ORDERED: OLAN15TA PO (10:55)
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
== END 2020-11-05 13:20 | disposition home or self-care (01) | DRG 750 ==
LOC: M ED 14:49 → M ED INP 20:51 → M PSY 20:55
PROVIDERS: ADMIT Psychiatry & Neurology Child & Adolescent Psychiatry; ATTEND Psychiatry & Neurology Psychiatry
DX: F25.0 Schizoaffective disorder, bipolar type (principal); E87.1 Hypo-osmolality and hyponatremia; E87.5 Hyperkalemia; F79 Unspecified intellectual disabilities; Z20.822 Contact with and (suspected) exposure to COVID-19; Z79.899 Other long term (current) drug therapy

== ENCOUNTER 2020-11-18 10:52 | Inpatient (IN) | payer MEDICAID, OTHER ==
[~2020-11-18 10:52] MED LIST changes: +ARIS1064 IM; +OLAN5ZYD PO
[2020-11-18] MEDS ORDERED: ZYPR15TA PO (11:19)
[2020-11-18 12:10] LABS: HEMATOCRIT 43.4 % (42.0-52.0); HEMOGLOBIN 14.7 g/dl (13.5-17.5); MEAN CORPUSCULAR HEMOGLOBIN 30.4 pg (27.0-33.0); MEAN CORPUSCULAR HGB CONC 33.9 g/dl (32.0-36.5); MEAN CORPUSCULAR VOLUME 89.7 fl (80.0-96.0); PLATELET COUNT, AUTOMATED 278 10^3/uL (150-450); RED BLOOD COUNT 4.84 10^6/uL (4.30-6.10); WHITE BLOOD COUNT 13.9 10^3/uL (4.0-10.0)
[2020-11-18 12:34] LABS: AMPHETAMINES LEVEL URINE NEGATIVE (NEGATIVE); BARBITURATES URINE NEGATIVE (NEGATIVE); BENZODIAZEPINES URINE NEGATIVE (NEGATIVE); CANNABINOIDS URINE NEGATIVE (NEGATIVE); COCAINE METABOLITE URINE NEGATIVE (NEGATIVE); METHADONE URINE NEGATIVE (NEGATIVE); OPIATES URINE NEGATIVE (NEGATIVE); PHENCYCLIDINE URINE NEGATIVE (NEGATIVE)
[2020-11-18 12:52] LABS: ALT/SGPT 18 U/L (12-78); BILIRUBIN,DIRECT < 0.1 MG/DL (0.0-0.2); BILIRUBIN,TOTAL 0.3 MG/DL (0.2-1.0); BLOOD UREA NITROGEN 15 MG/DL (7-18); CALCIUM LEVEL 8.6 MG/DL (8.5-10.1); CARBON DIOXIDE LEVEL 27 MEQ/L (21-32); CHLORIDE LEVEL 100 MEQ/L (98-107); CREATININE FOR GFR 0.82 MG/DL (0.70-1.30); ETHYL ALCOHOL (ETHANOL) < 0.003 % (0.000-0.010); GLOMERULAR FILTRATION RATE > 60.0 (>60); GLUCOSE, FASTING 97 MG/DL (70-100); POTASSIUM SERUM 4.3 MEQ/L (3.5-5.1); SODIUM LEVEL 133 MEQ/L (136-145); TOTAL PROTEIN 7.2 GM/DL (6.4-8.2)
[2020-11-18 12:53] LABS: ACETAMINOPHEN LEVEL < 2.0 UG/ML (10.0-30.0); SALICYLATE LEVEL 4.1 MG/DL (5.0-30.0)
[2020-11-18] MEDS ORDERED: INVE234I IM (13:41)
[2020-11-18 14:26] LABS: RSV AMPLIFICATION NEGATIVE (NEGATIVE)
[2020-11-18] MEDS ORDERED: traZODone 50 MG TAB PO PRN (16:00)
[2020-11-18] MEDS ORDERED: MAALOX 30 ML SUSP *UDC PO PRN (16:00)
[2020-11-18 17:35] VITALS: BP 122/91
[2020-11-19 06:45] VITALS: BP 114/61
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
[2020-11-19 17:46] VITALS: BP 123/89
[2020-11-19] MEDS: BENZTROPINE 1 MG TAB PO SCH (20:58)
[2020-11-19] MEDS: OLANZapine 5 MG TAB PO SCH (20:58)
--- NOTE | 2020-11-20 16:57 | MHIPNPDOC ---
[facility] Progress Note Progress Note DATE OF SERVICE: 11/20/20 HISTORY: Patient is a 45 -year-old , single, intellectually disabled, domicile male who was admitted on a 9.39 to [facility] after he was brought in by [email or web address]. Patient had been calling them frequently in a panic that people are coming with guns and that nobody will be safe. He has known psychiatric history and has been admitted to this facility several times. Patient was recently admitted and discharged from this facility on 10/20/20- 11/05/20. He has a diagnosis of Schizoaffective Disorder, Bipolar Type and on his last admission treatment team attempted to transfer him to [facility] but patient had improvement and was discharged home. He has a long history of delusional and paranoid behaviors that have been increasingly more paranoid, delusional and bizarre. PER ED REPORT: Patient is a 9.41 to the ED by [email or web address]. Per responding officers PT has been calling them frequently in a panic that people are coming with guns and that nobody will be safe. Upon arrival to ED PT is cooperative but he quickly becomes escalated with pressured speech. 2x upon staff entering his room he went into a squatting position and had "finger guns" as he scans the area. He can be verbally directed. When MHE was attempted he states he is unable to talk "I just need my head here. You already know. Not OK" and then he covered his head up and would not speak again without many prompts and he was minimal with responses. He states he may or may not have taken his meds and that he doesn't care. When PT goes to the restroom he puts his hands on his head and states he will go in and clear the room. PT was last admitted to [facility] 10/20- 11/05/20. He denies drug or alcohol abuse. He says he has never slept. Asked if he has eaten "I deserve to eat". PT is not safe for d/c at this time and admission will be pursue. VITAL SIGNS: See below. CURRENT MEDICATIONS: See below. MENTAL STATUS EXAMINATION: Patient is a 45 year old domicile , single, disabled male, who is appears stated age. He is dresses in t-shirt and a pair of jeans, sitting on a chair, drinking coffee. Speech: Is rapid, pressured, other (extreme flight of ideas). Language skills are intact. Thought processes including: Circumstantial .Disorganized. Thought content: preoccupied, ideas of reference. Abstract reasoning, and computation: Limited. Description of associations: loose Description of abnormal or psychotic thoughts: Grandiose, delusional. Judgment: poor. Insight: poor. Orientation: Awake, alert and oriented self, place. Recent and remote memory:Unable to assess. Attention span and concentration: Limited. Language: Intact. Fund of knowledge: Borderline. Mood: hypomanic, mildly labile). Affect: Constricted. DIAGNOSES: Schizoaffective Bipolar Type Intellectual disability ASSESSMENT:Patient is see today. He is alert and oriented to self, time and place. He is cooperative. Says he is doing "good". He continues to be euphoric, disorganized mildly labile, paranoid rambles topic to topic. He makes statements like: Don't put my information on the computer, I'm on parole and they are after me, they hate me, I'm Octavio Cordova from the [employer], [employer] strikes again, ". Asked if he is Depressed he says no. Asked if he feels ready to go home, he rambles on on on different topics and then says " I can't go home, they will try to kill me again because I'm Art from the [employer] and Teresita is not home anyway. He has difficulty concentrating or answering direct questions and is circumstantial. He continues to be grandiose, delusional and psychotic. TIME SPENT: 25 minutes. Vital Signs Vital Signs Date Time Temp Pulse Resp B/P (MAP) Pulse Ox O2 Delivery O2 Flow Rate FiO2 11/19/20 17:46 97.9 89 16 123/89 (100) 11/19/20 06:45 98 Room Air Current Medications Current Medications Medications (Trade) Dose Ordered Sig/Rd Route PRN Reason Start Time Stop Time Status Last Admin Dose Admin Acetaminophen (Tylenol Tab) 650 mg Q6HP PRN PO HEADACHE or DISCOMFORT 11/18/20 16:00 Al Hydrox/Mg Hydrox/Simethicone (Mylanta) 30 ml Q4HP PRN PO HEARTBURN/INDIGESTION 11/18/20 16:00 Benztropine Mesylate (Cogentin) 3 mg QHS PO 11/19/20 21:00 Home Med (Med Rec Complete!) ASDIRECTED XX 11/18/20 13:45 11/18/20 13:43 DC Magnesium Hydroxide (Milk Of Magnesia) 30 ml DAILYPRN PRN PO CONSTIPATION 11/18/20 16:00 Olanzapine (ZyPREXA) 15 mg QHS PO 11/19/20 21:00 Trazodone HCl (Desyrel) 50 mg QHSP PRN PO INSOMNIA 11/18/20 16:00 Allergies Coded Allergies: No Known Allergies (Verified , 09/22/05) WU MENEZES NP Nov 20, 2020 14:50
[2020-11-20 18:47] VITALS: BP 140/87
[2020-11-20] MEDS: OLANZapine 5 MG TAB PO SCH (20:57)
[2020-11-20] MEDS: BENZTROPINE 1 MG TAB PO SCH (20:57)
[2020-11-21] MEDS: ACETAMINOPHEN TAB 650MG DOSE (2X325MG) PO PRN (01:38)
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
[2020-11-21 17:37] VITALS: BP 146/82
[2020-11-21] MEDS: BENZTROPINE 1 MG TAB PO SCH (21:00)
[2020-11-21] MEDS: OLANZapine 5 MG TAB PO SCH (21:00)
[2020-11-22 06:42] VITALS: BP 122/84
[2020-11-22 08:42] LABS: CHOLESTEROL RISK RATIO 1.985 (<5)
[2020-11-22 18:00] VITALS: BP 134/85
[2020-11-22] MEDS: BENZTROPINE 1 MG TAB PO SCH (20:54)
[2020-11-22] MEDS: OLANZapine 5 MG TAB PO SCH (20:55)
[2020-11-23] MEDS: ACETAMINOPHEN TAB 650MG DOSE (2X325MG) PO PRN ×3 (05:47→22:49)
[2020-11-23 06:49] VITALS: BP 132/68
[2020-11-23] MEDS ORDERED: OLANZapine ORAL DISINTEGRATING TAB 5MG PO ONE ×2 (11:00→21:05)
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
[2020-11-23 18:16] VITALS: BP 136/82
[2020-11-23] MEDS: BENZTROPINE 1 MG TAB PO SCH (20:44)
[2020-11-23] MEDS: OLANZapine 5 MG TAB PO SCH (20:44)
[2020-11-24 06:25] VITALS: BP 121/78
[2020-11-24] MEDS: ACETAMINOPHEN TAB 650MG DOSE (2X325MG) PO PRN ×2 (08:16→21:17)
--- NOTE | 2020-11-24 15:57 | MHIPNPDOC ---
[facility] Progress Note Progress Note DATE OF SERVICE: 11/24/20 HISTORY: Patient is a 45 -year-old Single, Intellectually Disabled, Domiciled Male who was admitted on a 9.39 to [facility] after he was brought in by [employer]. Patient had been calling them frequently in a panic that people are coming with guns and that nobody will be safe. He has known psychiatric history and has been admitted to this facility several times. Patient was recently admitted and discharged from this facility on 10/20/20- 11/05/20. He has a diagnosis of Schizoaffective Disorder, Bipolar Type and on his last admission treatment team attempted to transfer him to [facility] but patient had improvement and was discharged home. He has a long history of delusional and paranoid behaviors that have been increasingly more paranoid, delusional and bizarre. PER ED REPORT: Patient is a 9.41 to the ED by [employer]. Per responding officers PT has been calling them frequently in a panic that people are coming with guns and that nobody will be safe. Upon arrival to ED PT is cooperative but he quickly becomes escalated with pressured speech. 2x upon staff entering his room he went into a squatting position and had "finger guns" as he scans the area. He can be verbally directed. When MHE was attempted he states he is unable to talk "I just need my head here. You already know. Not OK" and then he covered his head up and would not speak again without many prompts and he was minimal with responses. He states he may or may not have taken his meds and that he doesn't care. When PT goes to the restroom he puts his hands on his head and states he will go in and clear the room. PT was last admitted to [facility] 10/20- 11/05/20. He denies drug or alcohol abuse. He says he has never slept. Asked if he has eaten "I deserve to eat". PT is not safe for d/c at this time and admission will be pursue. VITAL SIGNS: See below. CURRENT MEDICATIONS: See below. MENTAL STATUS EXAMINATION: Patient is a 45 -year-old Single, Intellectually Disabled, Domiciled Male who was admitted on a 9.39 to [facility] after he was brought in by [employer]. Patient had been calling them frequently in a panic that people are coming with guns and that nobody will be safe. Speech: Is rapid, pressured, other (extreme flight of ideas). Language skills are intact. Thought processes including: Circumstantial .Disorganized. Thought content: preoccupied, ideas of reference. Abstract reasoning, and computation: Limited. Description of associations: loose Description of abnormal or psychotic thoughts: Grandiose, delusional. Judgment: poor. Insight: poor. Orientation: Awake, alert and oriented self, place. Recent and remote memory:Unable to assess. Attention span and concentration: Limited. Language: Intact. Fund of knowledge: Borderline. Mood: hypomanic, labile Affect: Flat, hypervigilant at times, agitated. DIAGNOSES: Schizoaffective Bipolar Type Intellectual disability ASSESSMENT: Patient is interviewed this afternoon. He states that his "mood is good". Says " I have a sense of humor, He remains delusional, paranoid, circumstantial, rumbling about different topic. Asked if he is ready to go home, he makes a lot of nonsensical statements like "I need more time, they are out to king me, Im not managed by [employer], he is the building rental manager out there, he is selling heroin, they are out to get me, I'm not going back to long term, I'm on parole, they are refusing to give me the pill that dissolves on the tongue". Says he does not want to [facility]. He again says that he needs the "pill that dissolves in his mouth because it helps him. Says he is not ready for discharge and needs more time. Reinforced that his outpatient provider and parole is requesting that [place] be [place] [facility] due to his numerous, p aranoid,delusional, and violent statements. Per staff, patient has been agitated today, making threatening statements. Reports that he called parole and stated " I do not want [facility], I'm not going back to long term." TREATMENT PLAN; Continue all medications, determine when his long acting injectable medications are due. Patient is being converted to [facility] legal status. He is started on Zyprexa zydis 10mg BID. Time spent; 25 minutes. Vital Signs Vital Signs Date Time Temp Pulse Resp B/P (MAP) Pulse Ox O2 Delivery O2 Flow Rate FiO2 4/26/21 06:25 97.7 87 20 121/78 (92) 98 Room Air Current Medications Current Medications Medications (Trade) Dose Ordered Sig/Rd Route PRN Reason Start Time Stop Time Status Last Admin Dose Admin Acetaminophen (Tylenol Tab) 650 mg Q6HP PRN PO HEADACHE or DISCOMFORT 11/18/20 16:00 11/24/20 08:16 Al Hydrox/Mg Hydrox/Simethicone (Mylanta) 30 ml Q4HP PRN PO HEARTBURN/INDIGESTION 11/18/20 16:00 Benztropine Mesylate (Cogentin) 3 mg QHS PO 11/19/20 21:00 Home Med (Med Rec Complete!) ASDIRECTED XX 11/18/20 13:45 11/18/20 13:43 DC Magnesium Hydroxide (Milk Of Magnesia) 30 ml DAILYPRN PRN PO CONSTIPATION 11/18/20 16:00 Olanzapine (ZyPREXA) 15 mg QHS PO 11/19/20 21:00 Trazodone HCl (Desyrel) 50 mg QHSP PRN PO INSOMNIA 11/18/20 16:00 Allergies Coded Allergies: No Known Allergies (Verified , 09/22/05) WU MENEZES OIL TESTER Nov 24, 2020 11:55
[2020-11-24 18:37] VITALS: BP 138/87
[2020-11-24] MEDS: BENZTROPINE 1 MG TAB PO SCH (21:00)
[2020-11-24] MEDS: OLANZapine ORAL DISINTEGRATING TAB 5MG PO SCH (21:38)
[2020-11-25] MEDS: ACETAMINOPHEN TAB 650MG DOSE (2X325MG) PO PRN ×3 (06:14→23:50)
[2020-11-25 06:41] VITALS: BP 129/82
[2020-11-25] MEDS: OLANZapine ORAL DISINTEGRATING TAB 5MG PO SCH ×2 (09:10→19:59)
--- NOTE | 2020-11-25 11:40 | MHIPNPDOC ---
[facility] Progress Note Progress Note DATE OF SERVICE: 11/25/20 HISTORY: Patient is a 45 -year-old Single, Intellectually Disabled, Domiciled Male who was admitted on a 9.39 to [facility] after he was brought in by [place] [employer]. Patient had been calling them frequently in a panic that people are coming with guns and that nobody will be safe. He has known psychiatric history and has been admitted to this facility several times. Patient was recently admitted and discharged from this facility on 10/20/20- 11/05/20. He has a diagnosis of Schizoaffective Disorder, Bipolar Type and on his last admission treatment team attempted to transfer him to [facility] but patient had improvement and was discharged home. He has a long history of delusional and paranoid behaviors that have been increasingly more paranoid, delusional and bizarre. VITAL SIGNS: See below. CURRENT MEDICATIONS: See below. MENTAL STATUS EXAMINATION: Patient is a 45 -year-old Single, Intellectually Disabled, Domiciled Male who was admitted on a 9.39 to [facility] after he was brought in by [employer]. Patient had been calling them frequently in a panic that people are coming with guns and that nobody will be safe. Speech: normal rate, tone and volume, tangential Language skills are intact. Thought processes including: Linear, reality based Thought content: preoccupied, ideas of reference. Abstract reasoning, and computation: Limited. Description of associations: loose Description of abnormal or psychotic thoughts: Grandiose, delusional. Judgment: poor. Insight: poor. Orientation: Awake, alert and oriented self, place. Recent and remote memory:Unable to assess. Attention span and concentration: Limited. Language: Intact. Fund of knowledge: Borderline. Mood: Irritable, Labile Affect: Flat, hypervigilant at times, agitated. DIAGNOSES: Schizoaffective Bipolar Type Intellectual disability ASSESSMENT: Patient found in his room, tangential and circumstantial. Report from Primary RN, patient is irritable and agitated and refusing his medication. The nurse requested the provide to talk to the patient. He is making general homicidal statements and making martial arts moves. He is refusing his Zyprexa Zydis which was ordered for twice daily. Patient laid in his bed, became hyperverbal and indicated that he does not need to take his medicine. He states that he will only take the HS dose. Patient was agreeable to taking Zydis after much encouragement by provider. This was effective. Per staff notes, patient has been agitated, difficult to engage in 1:1 meaningful conversation. TREATMENT PLAN; Continue all medications, determine when his long acting injectable medications are due. Patient is being converted to [facility] legal status. He is started on Zyprexa Zydis 10mg BID. Time spent; 25 minutes. Vital Signs Vital Signs Date Time Temp Pulse Resp B/P (MAP) Pulse Ox O2 Delivery O2 Flow Rate FiO2 11/25/20 06:41 98.7 89 18 129/82 (98) 99 Room Air Current Medications Current Medications Medications (Trade) Dose Ordered Sig/Rd Route PRN Reason Start Time Stop Time Status Last Admin Dose Admin Acetaminophen (Tylenol Tab) 650 mg Q6HP PRN PO HEADACHE or DISCOMFORT 11/18/20 16:00 11/25/20 06:14 Al Hydrox/Mg Hydrox/Simethicone (Mylanta) 30 ml Q4HP PRN PO HEARTBURN/INDIGESTION 11/18/20 16:00 Benztropine Mesylate (Cogentin) 3 mg QHS PO 11/19/20 21:00 Home Med (Med Rec Complete!) ASDIRECTED XX 11/18/20 13:45 11/18/20 13:43 DC Magnesium Hydroxide (Milk Of Magnesia) 30 ml DAILYPRN PRN PO CONSTIPATION 11/18/20 16:00 Olanzapine (ZyPREXA ZYDIS) 10 mg BID PO 11/24/20 21:00 11/24/20 21:38 Olanzapine (ZyPREXA) 15 mg QHS PO 11/19/20 21:00 11/24/20 15:42 DC Trazodone HCl (Desyrel) 50 mg QHSP PRN PO INSOMNIA 11/18/20 16:00 Allergies Coded Allergies: No Known Allergies (Verified , 09/22/05) WU MENEZES NP Nov 25, 2020 08:30
[2020-11-25 16:07] VITALS: BP 140/87
[2020-11-25] MEDS: BENZTROPINE 1 MG TAB PO SCH (20:00)
[2020-11-26 06:15] VITALS: BP 122/81
[2020-11-26] MEDS: OLANZapine ORAL DISINTEGRATING TAB 5MG PO SCH ×2 (08:21→19:52)
[2020-11-26] MEDS: ACETAMINOPHEN TAB 650MG DOSE (2X325MG) PO PRN (15:46)
[2020-11-26 16:10] VITALS: BP 129/78
--- NOTE | 2020-11-26 16:22 | MHIPNPDOC ---
[facility] Progress Note Progress Note DATE OF SERVICE: 11/26/20 HISTORY: Patient is a 45 -year-old Single, Intellectually Disabled, Domiciled Male who was admitted on a 9.39 to [facility] after he was brought in by [place] [employer]. Patient had been calling them frequently in a panic that people are coming with guns and that nobody will be safe. He has known psychiatric history and has been admitted to this facility several times. Patient was recently admitted and discharged from this facility on 10/20/20- 11/05/20. He has a diagnosis of Schizoaffective Disorder, Bipolar Type and on his last admission treatment team attempted to transfer him to [facility] but patient had improvement and was discharged home. He has a long history of delusional and paranoid behaviors that have been increasingly more paranoid, delusional and bizarre. VITAL SIGNS: See below. CURRENT MEDICATIONS: See below. MENTAL STATUS EXAMINATION: Patient is a 45 -year-old Single, Intellectually Disabled, Domiciled Male who was admitted on a 9.39 to [facility] after he was brought in by [place] [employer]. Patient had been calling them frequently in a panic that people are coming with guns and that nobody will be safe. Speech: Is rapid, pressured, other (extreme flight of ideas). Language skills are intact. Thought processes including: Circumstantial, disorganized Thought content: preoccupied, ideas of reference. Abstract reasoning, and computation: Limited. Description of associations: loose Description of abnormal or psychotic thoughts: Grandiose, delusional. Judgment: poor. Insight: poor. Orientation: Awake, alert and oriented self, place. Recent and remote memory:Unable to assess. Attention span and concentration: Limited. Language: Intact. Fund of knowledge: Borderline. Mood: Irritable, Labile Affect: Flat, hypervigilant at times, agitated. DIAGNOSES: Schizoaffective Bipolar Type Intellectual disability ASSESSMENT: Patient agrees to meet in the interview room. He is irritable, circumstantial, disorganized and difficult to engage in meaningful conversation. He is rumbling about different topics. States that he is " just chilling". During the interview, his mood goes from irritable, to hypervigilant to crying. He continues to ramble from topic to topic. Goes on a long rant stating that " I just want a fair chance but [place] wants to keep me in detention, I love my girlfriend Teresita but [place] calls her the N word, I can't get a fair shot because [place] is racist, there is no decent job in [place], just drug addicts on SSI, look at me , I want to work but they want to send me back to detention, [place] is here, I need my SSI, I won't use the pencil". He is dishevelled, unkempt and has 3 shirts on. Attempts to redirect him fail as but he continues to rant on different topics as he walks out of the interview room. TREATMENT PLAN; Continue all medications, determine when his long acting injectable medications are due. Patient is being converted to [facility] legal status. Continue Zyprexa Zydis 10mg BID. Time spent; 25 minutes. Vital Signs Vital Signs Date Time Temp Pulse Resp B/P (MAP) Pulse Ox O2 Delivery O2 Flow Rate FiO2 11/26/20 16:10 98.3 99 18 129/78 (95) 98 Room Air Current Medications Current Medications Medications (Trade) Dose Ordered Sig/Rd Route PRN Reason Start Time Stop Time Status Last Admin Dose Admin Acetaminophen (Tylenol Tab) 650 mg Q6HP PRN PO HEADACHE or DISCOMFORT 11/18/20 16:00 11/26/20 15:46 Al Hydrox/Mg Hydrox/Simethicone (Mylanta) 30 ml Q4HP PRN PO HEARTBURN/INDIGESTION 11/18/20 16:00 Benztropine Mesylate (Cogentin) 3 mg QHS PO 11/19/20 21:00 Home Med (Med Rec Complete!) ASDIRECTED XX 11/18/20 13:45 11/18/20 13:43 DC Magnesium Hydroxide (Milk Of Magnesia) 30 ml DAILYPRN PRN PO CONSTIPATION 11/18/20 16:00 Olanzapine (ZyPREXA ZYDIS) 10 mg BID PO 11/24/20 21:00 11/26/20 08:21 Olanzapine (ZyPREXA) 15 mg QHS PO 11/19/20 21:00 11/24/20 15:42 DC Trazodone HCl (Desyrel) 50 mg QHSP PRN PO INSOMNIA 11/18/20 16:00 Allergies Coded Allergies: No Known Allergies (Verified , 09/22/05) WU MENEZES NP Nov 26, 2020 16:22
[2020-11-26] MEDS ORDERED: diphenhydrAMINE 50MG/ML VIAL (J1200) IM ONE (18:20)
[2020-11-26] MEDS ORDERED: BENZTROPINE MESYLATE 2MG/2ML VIAL IM ONE (18:20)
[2020-11-26] MEDS ORDERED: HALOPERIDOL 5MG/ML VIAL (J1630 PER 1) IM ONE (18:20)
[2020-11-26] MEDS ORDERED: LORazepam 2 MG/ML VIAL IV ONE (19:10)
[2020-11-26] MEDS: BENZTROPINE 1 MG TAB PO SCH (19:52)
[2020-11-27] MEDS: ACETAMINOPHEN TAB 650MG DOSE (2X325MG) PO PRN ×2 (04:01→23:04)
[2020-11-27 06:45] VITALS: BP 142/93
[2020-11-27] MEDS: OLANZapine ORAL DISINTEGRATING TAB 5MG PO SCH ×2 (08:20→21:13)
--- NOTE | 2020-11-27 09:32 | MHIPNPDOC ---
[facility] Progress Note Progress Note DATE OF SERVICE: 11/27/20 HISTORY: Patient is a 45 -year-old Single, Intellectually Disabled, Domiciled Male who was admitted on a 9.39 to [facility] after he was brought in by [place] [employer]. Patient had been calling them frequently in a panic that people are coming with guns and that nobody will be safe. He has known psychiatric history and has been admitted to this facility several times. Patient was recently admitted and discharged from this facility on 10/20/20- 11/05/20. He has a diagnosis of Schizoaffective Disorder, Bipolar Type and on his last admission treatment team attempted to transfer him to [facility] but patient had improvement and was discharged home. He has a long history of delusional and paranoid behaviors that have been increasingly more paranoid, delusional and bizarre. VITAL SIGNS: See below. CURRENT MEDICATIONS: See below. MENTAL STATUS EXAMINATION: Patient is a 45 -year-old Single, Intellectually Disabled, Domiciled Male who was admitted on a 9.39 to [facility] after he was brought in by [place] [employer]. Patient had been calling them frequently in a panic that people are coming with guns and that nobody will be safe. Speech: Is rapid, pressured, other (extreme flight of ideas). Language skills are intact. Thought processes including: Circumstantial, tangential Thought content: preoccupied, ideas of reference. Abstract reasoning, and computation: Limited. Description of associations: loose Description of abnormal or psychotic thoughts: Grandiose, delusional. Judgment: poor. Insight: poor. Orientation: Awake, alert and oriented self, place. Recent and remote memory:Unable to assess. Attention span and concentration: Limited. Language: Intact. Fund of knowledge: Borderline. Mood: Labile Affect: Flat DIAGNOSES: Schizoaffective Bipolar Type Intellectual disability ASSESSMENT: Patient found in the hallway, tangential, circumstantial with severe flight of ideas. Patient talks about wanting Teresita and not wanting Teresita, employment, SSI, paying his bills, his education and not being able to stop education because his God is Buddha. He is reporting that the Buddha's philosophy is about mercy and lester. And he wants to get rid of Teresita, and doesn't want to give her Gold. He can't afford Silver. Patient has very fast speech, racing thoughts, his thought processes is non-stop talking. Talks about the [employer], wants to get off parole, and his daughter who is a professional bowler. States his human resources officer [place]iam is racial because he and Teresita are having sex. Reports that other parole officers want him off the streets. He can't "enjoy his Mortal Combat, may be going to snf for reporting, Teresita is sex crazy. Disrespect will get you killed in [place], everybody in [place] wants to kill me, but I am not disrespectful, Teresita is, I have respect for everybody, I have peace." "People are trying to kill me, my break dancing name is [place], [place] Gangs and [place] Gangs, [place] gangs are getting along, but those gangs in [place] have guns. But dance breaking, the [place] everybody comes to the big time, [place] is the money shakers, I can write rap lyrics and get on YouTube for free and then get SSI, one day I will be allowed to vote for the President." I am not voting for the Senator, why did you have me vote for the President, Felicitas is the worst President, I want to be a scrum bag, the [place] should take care of the country. I have to shut up and take a bullet, because Felicitas is stupid, Teresita is disrespectful, but I know [employer] arts because I am related to Octavio Cordova and took that information out of [employer]. [place] is saying our jainism because we are making the world nuts. When I attempted to talk to patient about [place] he states "I am taking you to Court, I am talking to [place] and I am staying in [facility]! Y'all are driving me nuts, can I get a job here? No! 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 I got screwed over by a bicycle license!" Patient is very psychotic, demonstrates poor insight and poor judgment. His presentation in today's interview is dangerous in the community due to his delusional and paranoid thoughts. TREATMENT PLAN; Continue all medications, determine when his long acting injectable medications are due. Patient is being converted to [facility] legal status. Continue Zyprexa Zydis 10mg BID. Time spent; 25 minutes. Vital Signs Vital Signs Date Time Temp Pulse Resp B/P (MAP) Pulse Ox O2 Delivery O2 Flow Rate FiO2 11/27/20 06:45 98.0 99 20 142/93 (109) 98 11/26/20 16:10 Room Air Current Medications Current Medications Medications (Trade) Dose Ordered Sig/Rd Route PRN Reason Start Time Stop Time Status Last Admin Dose Admin Acetaminophen (Tylenol Tab) 650 mg Q6HP PRN PO HEADACHE or DISCOMFORT 11/18/20 16:00 11/27/20 04:01 Al Hydrox/Mg Hydrox/Simethicone (Mylanta) 30 ml Q4HP PRN PO HEARTBURN/INDIGESTION 11/18/20 16:00 Benztropine Mesylate (Cogentin) 3 mg QHS PO 11/19/20 21:00 Home Med (Med Rec Complete!) ASDIRECTED XX 11/18/20 13:45 11/18/20 13:43 DC Magnesium Hydroxide (Milk Of Magnesia) 30 ml DAILYPRN PRN PO CONSTIPATION 11/18/20 16:00 Olanzapine (ZyPREXA ZYDIS) 10 mg BID PO 11/24/20 21:00 11/27/20 08:20 Olanzapine (ZyPREXA) 15 mg QHS PO 11/19/20 21:00 11/24/20 15:42 DC Trazodone HCl (Desyrel) 50 mg QHSP PRN PO INSOMNIA 11/18/20 16:00 Allergies Coded Allergies: No Known Allergies (Verified , 09/22/05) WU MENEZES FARM ASSISTANT Nov 27, 2020 09:32
--- NOTE | 2020-11-27 16:12 | MHCRPDOC ---
[facility] Consultation Consultation DATE OF CONSULTATION: 11/27/20 CONSULTATION REQUESTED BY:This was an administrative hearing REASON FOR CONSULTATION: . Vickey attended this hearing due to his provider Angie Menezes NP, wanted to transfer him to [facility]. He started talking the minute he sat down and continued throughout the meeting, not really making much since. I asked him if he knew that they were recommending a transfer to [facility] he stated he did. He baecae very upset and stated he would not go as he was protecting his home and self when he was arrested. He stormed out of the meeting. This staffing administrator is in agreement with Vickey being transfered to [facility]. Ruby Dina, CEREAL POPPER, CASAC-M 11/27/20 4:12p Vital Signs Vital Signs Date Time Temp Pulse Resp B/P (MAP) Pulse Ox O2 Delivery O2 Flow Rate FiO2 11/27/20 06:45 98.0 99 20 142/93 (109) 98 11/26/20 16:10 Room Air Home Medications Current Medications Current Medications Medications (Trade) Dose Ordered Sig/Rd Route PRN Reason Start Time Stop Time Status Last Admin Dose Admin Acetaminophen (Tylenol Tab) 650 mg Q6HP PRN PO HEADACHE or DISCOMFORT 11/18/20 16:00 11/27/20 04:01 Al Hydrox/Mg Hydrox/Simethicone (Mylanta) 30 ml Q4HP PRN PO HEARTBURN/INDIGESTION 11/18/20 16:00 Benztropine Mesylate (Cogentin) 3 mg QHS PO 11/19/20 21:00 Home Med (Med Rec Complete!) ASDIRECTED XX 11/18/20 13:45 11/18/20 13:43 DC Magnesium Hydroxide (Milk Of Magnesia) 30 ml DAILYPRN PRN PO CONSTIPATION 11/18/20 16:00 Olanzapine (ZyPREXA ZYDIS) 10 mg BID PO 11/24/20 21:00 11/27/20 08:20 Olanzapine (ZyPREXA) 15 mg QHS PO 11/19/20 21:00 11/24/20 15:42 DC Trazodone HCl (Desyrel) 50 mg QHSP PRN PO INSOMNIA 11/18/20 16:00 Scheduled Aripiprazole Lauroxil ([place]ristada) 1,064 Mg/3.9 Ml Suser.syr, 1,064 MG IM EVERY 8 WEEKS for antipsychotic Benztropine Mesylate (Benztropine Mesylate) 1 Mg Tablet, 3 MG PO QHS, (Reported) Olanzapine (Zyprexa) 15 Mg Tablet, 15 MG PO QHS, (Reported) Allergies Coded Allergies: No Known Allergies (Verified , 09/22/05) ANGIE MENEZES NP Nov 27, 2020 16:12
[2020-11-27 16:52] VITALS: BP 138/83
[2020-11-27] MEDS: BENZTROPINE 1 MG TAB PO SCH (21:00)
[2020-11-28] MEDS: ACETAMINOPHEN TAB 650MG DOSE (2X325MG) PO PRN ×2 (06:32→22:00)
[2020-11-28] MEDS: OLANZapine ORAL DISINTEGRATING TAB 5MG PO SCH ×2 (09:00→20:07)
[2020-11-28] MEDS ORDERED: BENZTROPINE MESYLATE 2MG/2ML VIAL IM ONE (09:50)
[2020-11-28] MEDS: BENZTROPINE 1 MG TAB PO SCH (10:06)
--- NOTE | 2020-11-28 15:18 | MHIPNPDOC ---
[facility] Progress Note Progress Note DATE OF SERVICE: 11/28/20 HISTORY: Patient is a 45 -year-old Single, Intellectually Disabled, Domiciled Male who was admitted on a 9.39 to [facility] after he was brought in by [place] [employer]. Patient had been calling them frequently in a panic that people are coming with guns and that nobody will be safe. He has known psychiatric history and has been admitted to this facility several times. Patient was recently admitted and discharged from this facility on 10/20/20- 11/05/20. He has a diagnosis of Schizoaffective Disorder, Bipolar Type and on his last admission treatment team attempted to transfer him to [facility] but patient had improvement and was discharged home. He has a long history of delusional and paranoid behaviors that have been increasingly more paranoid, delusional and bizarre. VITAL SIGNS: See below. CURRENT MEDICATIONS: See below. MENTAL STATUS EXAMINATION: Patient is a 45 -year-old Single, Intellectually Disabled, Domiciled Male who was admitted on a 9.39 to [facility] after he was brought in by [place] [employer]. Patient had been calling them frequently in a panic that people are coming with guns and that nobody will be safe. Speech: Is rapid, pressured, other (extreme flight of ideas). Language skills are intact. Thought processes including: Circumstantial, tangential Thought content: preoccupied, ideas of reference. Abstract reasoning, and computation: Limited. Description of associations: loose Description of abnormal or psychotic thoughts: Grandiose, delusional. Judgment: poor. Insight: poor. Orientation: Awake, alert and oriented self, place. Recent and remote memory:Unable to assess. Attention span and concentration: Limited. Language: Intact. Fund of knowledge: Borderline. Mood: Labile Affect: Flat DIAGNOSES: Schizoaffective Bipolar Type Intellectual disability ASSESSMENT: Patient refuses to meet with treatment team. He is seen in the hallways. He is unkempt . He is tangential , circumstantial, hyperverbal, making nonsensical statements . He believes that there is a [facility] verses a [facility] gang war going on and he is inviting staff and peers to be part of the gangs. His hyperverbal,tangential behavior, random violent statements, random martial arts moves are making other peers uncomfortable. His violent statements are not directed to any peers in particular but some patients have expressed their discomfort with his behavior, TREATMENT PLAN; Continue all medications, determine when his long acting injectable medications are due. Patient is being converted to [facility] legal status. Time spent;15 minutes. Vital Signs Vital Signs Date Time Temp Pulse Resp B/P (MAP) Pulse Ox O2 Delivery O2 Flow Rate FiO2 11/27/20 16:52 97.9 90 18 138/83 (101) Room Air 11/27/20 06:45 98 Current Medications Current Medications Medications (Trade) Dose Ordered Sig/Rd Route PRN Reason Start Time Stop Time Status Last Admin Dose Admin Acetaminophen (Tylenol Tab) 650 mg Q6HP PRN PO HEADACHE or DISCOMFORT 11/18/20 16:00 11/28/20 06:32 Al Hydrox/Mg Hydrox/Simethicone (Mylanta) 30 ml Q4HP PRN PO HEARTBURN/INDIGESTION 11/18/20 16:00 Benztropine Mesylate (Cogentin) 3 mg QHS PO 11/19/20 21:00 Home Med (Med Rec Complete!) ASDIRECTED XX 11/18/20 13:45 11/18/20 13:43 DC Magnesium Hydroxide (Milk Of Magnesia) 30 ml DAILYPRN PRN PO CONSTIPATION 11/18/20 16:00 Olanzapine (ZyPREXA ZYDIS) 10 mg BID PO 11/24/20 21:00 11/27/20 21:13 Olanzapine (ZyPREXA) 15 mg QHS PO 11/19/20 21:00 11/24/20 15:42 DC Trazodone HCl (Desyrel) 50 mg QHSP PRN PO INSOMNIA 11/18/20 16:00 Allergies Coded Allergies: No Known Allergies (Verified , 09/22/05) WU MEENZES BUCCARO Nov 28, 2020 15:18
[2020-11-28 16:12] VITALS: BP 144/88
[2020-11-29] MEDS: ACETAMINOPHEN TAB 650MG DOSE (2X325MG) PO PRN ×2 (05:21→20:09)
[2020-11-29 06:22] VITALS: BP 152/96
[2020-11-29] MEDS: OLANZapine ORAL DISINTEGRATING TAB 5MG PO SCH ×2 (08:03→21:53)
[2020-11-29] MEDS: MOM 30ML SUSPENSION UDC PO PRN (15:06)
[2020-11-29 16:04] VITALS: BP 125/87
[2020-11-29] MEDS: BENZTROPINE 1 MG TAB PO SCH (21:00)
[2020-11-29] MEDS: POLYVINYL ALCOHOL OPHTH SOLN 15 ML(LIQUITEARS) OU SCH (23:57)
[2020-11-30] MEDS: MOM 30ML SUSPENSION UDC PO PRN (05:19)
[2020-11-30] MEDS: ACETAMINOPHEN TAB 650MG DOSE (2X325MG) PO PRN ×2 (05:21→20:49)
[2020-11-30 06:18] VITALS: BP 153/81
[2020-11-30] MEDS: OLANZapine ORAL DISINTEGRATING TAB 5MG PO SCH ×2 (08:19→20:20)
[2020-11-30] MEDS: POLYVINYL ALCOHOL OPHTH SOLN 15 ML(LIQUITEARS) OU SCH ×4 (08:20→20:48)
[2020-11-30 16:19] VITALS: BP 150/88
[2020-11-30] MEDS: BENZTROPINE 1 MG TAB PO SCH (20:19)
[2020-12-01] MEDS: ACETAMINOPHEN TAB 650MG DOSE (2X325MG) PO PRN ×3 (03:55→22:05)
[2020-12-01 07:08] VITALS: BP 123/61
[2020-12-01] MEDS: OLANZapine ORAL DISINTEGRATING TAB 5MG PO SCH ×2 (08:11→20:02)
[2020-12-01] MEDS: POLYVINYL ALCOHOL OPHTH SOLN 15 ML(LIQUITEARS) OU SCH ×4 (08:11→20:02)
[2020-12-01] MEDS: MOM 30ML SUSPENSION UDC PO PRN (11:56)
--- NOTE | 2020-12-01 14:37 | MHIPNPDOC ---
[facility] Progress Note Progress Note DATE OF SERVICE: 12/01/20 HISTORY: Patient is a 45 -year-old Single, Intellectually Disabled, Domiciled Male who was admitted on a 9.39 to [facility] after he was brought in by [employer] [place] [employer]. Patient had been calling them frequently in a panic that people are coming with guns and that nobody will be safe. He has known psychiatric history and has been admitted to this facility several times. Patient was recently admitted and discharged from this facility on 10/20/20- 11/05/20. He has a diagnosis of Schizoaffective Disorder, Bipolar Type and on his last admission treatment team attempted to transfer him to [facility] but patient had improvement and was discharged home. He has a long history of delusional and paranoid behaviors that have been increasingly more paranoid, delusional and bizarre. VITAL SIGNS: See below. CURRENT MEDICATIONS: See below. MENTAL STATUS EXAMINATION: Patient is a 45 -year-old Single, Intellectually Disabled, Domiciled Male who was admitted on a 9.39 to [facility] after he was brought in by [employer] [place] [employer]. Patient had been calling them frequently in a panic that people are coming with guns and that nobody will be safe. Speech: normal rate, tone and volume, tangential (flight of ideas). Language skills are intact. Thought processes including: Circumstantial, tangential Thought content: preoccupied, ideas of reference. Abstract reasoning, and computation: Limited. Description of associations: loose Description of abnormal or psychotic thoughts: Grandiose, delusional, paranoid Judgment: poor. Insight: poor. Orientation: Awake, alert and oriented self, place. Recent and remote memory:Unable to assess. Attention span and concentration: Limited. Language: Intact. Fund of knowledge: Borderline. Mood: Labile Affect: Flat DIAGNOSES: Schizoaffective Bipolar Type Intellectual disability ASSESSMENT: Patient continues to be tangential and having flight of ideas. Reports that he is "[place]" wants to work with [employer] with regards to bicycle discounts. Took a laxative and says he is "dirty on the inside and is trying to clean up his organs" - laughs as he expelled flatus in the interview. Reports that his All-terrain bicycle will be ridden in [place] and in the snow. He is grandiose about his Bicycle and reports that his bike is a a limited edition memorabilia bike. It is very difficult to have meaningful conversation with patient as he is hyperverbal and tangential. Patient demonstrates poor insight and judgment, reporting that radio stations are hindering his ability to speak with politicians. He has paranoid thought processes. 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 Patient becomes very angry states that he is being killed by the Provider because he was not given Zyprexa Zydis as an outpatient medication, he states that he is calling [employer] and not going to [place] until it is fixed. TREATMENT PLAN; Continue all medications, Patient is now [facility] legal status. [place] [facility] Time spent; 25 minutes. Vital Signs Vital Signs Date Time Temp Pulse Resp B/P (MAP) Pulse Ox O2 Delivery O2 Flow Rate FiO2 12/01/20 07:08 97.9 79 20 123/61 (81) 99 Room Air Current Medications Current Medications Medications (Trade) Dose Ordered Sig/Rd Route PRN Reason Start Time Stop Time Status Last Admin Dose Admin Acetaminophen (Tylenol Tab) 650 mg Q6HP PRN PO HEADACHE or DISCOMFORT 11/18/20 16:00 12/01/20 03:55 Al Hydrox/Mg Hydrox/Simethicone (Mylanta) 30 ml Q4HP PRN PO HEARTBURN/INDIGESTION 11/18/20 16:00 Artificial Tears (Akwa Tears) 2 drop QID OU 11/29/20 21:00 12/01/20 12:07 Benztropine Mesylate (Cogentin) 3 mg QHS PO 11/19/20 21:00 Home Med (Med Rec Complete!) ASDIRECTED XX 11/18/20 13:45 11/18/20 13:43 DC Magnesium Hydroxide (Milk Of Magnesia) 30 ml DAILYPRN PRN PO CONSTIPATION 11/18/20 16:00 12/01/20 11:56 Olanzapine (ZyPREXA ZYDIS) 10 mg BID PO 11/24/20 21:00 12/01/20 08:11 Olanzapine (ZyPREXA) 15 mg QHS PO 11/19/20 21:00 11/24/20 15:42 DC Trazodone HCl (Desyrel) 50 mg QHSP PRN PO INSOMNIA 11/18/20 16:00 Allergies Coded Allergies: No Known Allergies (Verified , 09/22/05) WU MENEZES NP December 01, 2020 12:09
[2020-12-01 18:00] VITALS: BP 144/85
[2020-12-01] MEDS: BENZTROPINE 1 MG TAB PO SCH (20:01)
[2020-12-02 06:40] VITALS: BP 132/77
[2020-12-02] MEDS: OLANZapine ORAL DISINTEGRATING TAB 5MG PO SCH ×2 (08:21→20:08)
[2020-12-02] MEDS: POLYVINYL ALCOHOL OPHTH SOLN 15 ML(LIQUITEARS) OU SCH ×4 (08:21→20:06)
[2020-12-02] MEDS: ACETAMINOPHEN TAB 650MG DOSE (2X325MG) PO PRN ×2 (10:02→21:43)
[2020-12-02 12:14] LABS: HEMATOCRIT 38.7 % (42.0-52.0); MEAN CORPUSCULAR HEMOGLOBIN 30.1 pg (27.0-33.0); MEAN CORPUSCULAR HGB CONC 33.6 g/dl (32.0-36.5); MEAN CORPUSCULAR VOLUME 89.6 fl (80.0-96.0); PLATELET COUNT, AUTOMATED 256 10^3/uL (150-450); RED BLOOD COUNT 4.32 10^6/uL (4.30-6.10); WHITE BLOOD COUNT 9.3 10^3/uL (4.0-10.0)
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
[2020-12-02 18:00] VITALS: BP 143/83
[2020-12-02] MEDS: BENZTROPINE 1 MG TAB PO SCH (21:00)
--- NOTE | 2020-12-03 05:49 | MHIR ---
General Date: December 03, 2020 Restraint Documentation Order/Evaluation PSYCH CERTIFICATION FACE TO FACE: yes PHYSICIAN ASSESSMENT: The patient was agitated, violent towards staff and not fo llowing verbal instructions VITALS GEN: irritable / yelling REASON FOR RESTRAINT: The patient was a danger to the staff. DE-ESCALATION INTERVENTIONS ATTEMPTED BEFORE USE OF RESTRAINTS: verbal redirection [MECHANICAL AND/OR CHEMICAL] RESTRAINTS USED: Both LENGTH OF TIME ORDERED IN RESTRAINTS: 4 hours WHEN TO DISCONTINUE RESTRAINTS: When the patient is no longer a threat to to herself or others Post evaluation of restraint due in 24 hours. MIKE BYERS MD December 03, 2020 05:49
[2020-12-03] MEDS ORDERED: OLANZapine ORAL DISINTEGRATING TAB 5MG PO PRN (05:55)
[2020-12-03] MEDS ORDERED: chlorproMAZINE INJ 50MG/2ML AMP (J3230) IM STA (06:08)
[2020-12-03 06:15] VITALS: BP 129/79
[2020-12-03 06:30] VITALS: BP 133/73
[2020-12-03 06:45] VITALS: BP 137/78
[2020-12-03 07:33] VITALS: BP 129/79
[2020-12-03] MEDS: ACETAMINOPHEN TAB 650MG DOSE (2X325MG) PO PRN ×2 (08:32→16:06)
[2020-12-03] MEDS: POLYVINYL ALCOHOL OPHTH SOLN 15 ML(LIQUITEARS) OU SCH ×4 (08:32→20:23)
[2020-12-03] MEDS: OLANZapine ORAL DISINTEGRATING TAB 5MG PO SCH ×2 (08:32→20:23)
[2020-12-03] MEDS: MOM 30ML SUSPENSION UDC PO PRN (09:07)
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
--- NOTE | 2020-12-03 15:32 | MHPR ---
General Date: December 03, 2020 Time: 15:28 Post-Restraint Evaluation THE OUTCOME OF THE RESTRAINT: was positive, patient has been in behavioral control and more engaging with peers and staff EFFECTIVENESS OF THE RESTRAINT: Mechanical and/or chemical: positive, please read above ANY EVIDENCE THAT THE PATIENT WAS AFFECTED EMOTIONALLY: Not in a negative way, he has remained in behavioral control ANY NEED FOR COUNSELING/ASSISTANCE: he has been receiving support and psychoeducation from staff CHANGES IN TREATMENT PLAN: Will continue on the same medications, he will continue to receive support, he will be encouraged to take his medications, he will be monitored for safety, will receive PRN medications RECOMMENDATIONS FOR FUTURE INCIDENTS: Will continue to receive support, re direction, psycho education, PRN medications, counseling. MIO BOWSER MD December 03, 2020 15:32
[2020-12-03 17:39] VITALS: BP 135/77
[2020-12-03] MEDS: BENZTROPINE 1 MG TAB PO SCH (21:00)
[2020-12-04] MEDS: OLANZapine ORAL DISINTEGRATING TAB 5MG PO SCH ×2 (08:07→21:44)
[2020-12-04] MEDS: POLYVINYL ALCOHOL OPHTH SOLN 15 ML(LIQUITEARS) OU SCH ×4 (08:08→20:18)
[2020-12-04] MEDS: MOM 30ML SUSPENSION UDC PO PRN (12:48)
--- NOTE | 2020-12-04 15:32 | MHIPNPDOC ---
[facility] Progress Note Progress Note DATE OF SERVICE: 12/04/20 HISTORY: Patient is a 45 -year-old Single, Intellectually Disabled, Domiciled Male who was [facility] on a [facility].39 [facility] after he was brought in by [place] [employer]. Patient had been calling them frequently in a panic that people are coming with guns and that nobody will be safe. He has known psychiatric history and has been admitted to this facility several times. Patient was recently admitted and discharged from this facility on 10/20/20- 11/05/20. He has a diagnosis of Schizoaffective Disorder, Bipolar Type and on his last admission treatment team attempted to transfer him to [facility] but patient had improvement and was discharged home. He has a long history of delusional and paranoid behaviors that have been increasingly more paranoid, delusional and bizarre. VITAL SIGNS: See below. CURRENT MEDICATIONS: See below. MENTAL STATUS EXAMINATION: Patient is a 45 -year-old Single, Intellectually Disabled, Domiciled Male who was [facility] on a 9.39 [facility] after he was brought in by [place] [employer]. Patient had been calling them frequently in a panic that people are coming with guns and that nobody will be safe. Patient is dressed appropriately, has a hypervigilant eye contact. Speech: circumstantial, loud, disorganized Language skills are intact. Thought processes including: Circumstantial, disorganized Thought content: paranoid thoughts, grandiose thoughts, ideas of reference, Abstract reasoning, and computation: Limited. Description of associations: loose Description of abnormal or psychotic thoughts: Grandiose, delusional, paranoid Judgment: poor. Insight: poor. Orientation: Awake, alert and oriented self, place. Recent and remote memory:Unable to assess. Attention span and concentration: Limited. Language: Intact. Fund of knowledge: Borderline. Mood: angry and irritable Affect: angry, irritable DIAGNOSES: Schizoaffective Bipolar Type Intellectual disability ASSESSMENT: the patient keeps rambling, he is still circumstantial, psychotic, disorganized. he keeps talking about an ATV and the gear that ATV riders use, that he is going to request those clothes, he's going to call them so that he can find his new outfit at home when he goes back, since "I'm never going to be able to leave this place". Then he goes n to talk about how much he hates guns but how much he respects them The patient is still manic and psychotic but he is less irritable, at least at this time. TREATMENT PLAN; Continue all medications, Patient is now [facility] legal status. [place] [facility] Time spent; 25 minutes. Vital Signs Vital Signs Date Time Temp Pulse Resp B/P (MAP) Pulse Ox O2 Delivery O2 Flow Rate FiO2 12/03/20 17:39 97.7 111 18 135/77 (96) Room Air 12/03/20 07:33 99 Current Medications Current Medications Medications (Trade) Dose Ordered Sig/Rd Route PRN Reason Start Time Stop Time Status Last Admin Dose Admin Acetaminophen (Tylenol Tab) 650 mg Q6HP PRN PO HEADACHE or DISCOMFORT 11/18/20 16:00 12/03/20 16:06 Al Hydrox/Mg Hydrox/Simethicone (Mylanta) 30 ml Q4HP PRN PO HEARTBURN/INDIGESTION 11/18/20 16:00 Artificial Tears (Akwa Tears) 2 drop QID OU 11/29/20 21:00 12/04/20 12:47 Benztropine Mesylate (Cogentin) 3 mg QHS PO 11/19/20 21:00 Chlorpromazine HCl (Thorazine) 50 mg STAT STAT IM 12/03/20 06:08 12/03/20 06:09 DC 12/03/20 06:13 Home Med (Med Rec Complete!) ASDIRECTED XX 11/18/20 13:45 11/18/20 13:43 DC Hydroxyzine HCl (Atarax) 50 mg QHS PO 12/04/20 21:00 Magnesium Hydroxide (Milk Of Magnesia) 30 ml DAILYPRN PRN PO CONSTIPATION 11/18/20 16:00 12/04/20 12:48 Olanzapine (ZyPREXA ZYDIS) 5 mg Q4HP PRN PO AGITATION 12/03/20 05:55 Olanzapine (ZyPREXA ZYDIS) 10 mg BID PO 11/24/20 21:00 12/04/20 08:07 Olanzapine (ZyPREXA) 15 mg QHS PO 11/19/20 21:00 11/24/20 15:42 DC Trazodone HCl (Desyrel) 50 mg QHSP PRN PO INSOMNIA 11/18/20 16:00 Allergies Coded Allergies: No Known Allergies (Verified , 09/22/05) MIO BOWSER MD December 04, 2020 14:32
[2020-12-04 18:57] VITALS: BP 146/84
[2020-12-04] MEDS: hydrOXYzine 50 MG TAB PO SCH ×2 (21:43→21:46)
[2020-12-04] MEDS: BENZTROPINE 1 MG TAB PO SCH ×2 (21:44→21:46)
[2020-12-05] MEDS: ACETAMINOPHEN TAB 650MG DOSE (2X325MG) PO PRN ×2 (00:49→08:53)
[2020-12-05 06:10] VITALS: BP 138/81
[2020-12-05] MEDS: POLYVINYL ALCOHOL OPHTH SOLN 15 ML(LIQUITEARS) OU SCH ×4 (08:24→20:05)
[2020-12-05] MEDS: OLANZapine ORAL DISINTEGRATING TAB 5MG PO SCH ×2 (08:25→20:05)
--- NOTE | 2020-12-05 15:41 | MHIPNPDOC ---
[facility] Progress Note Progress Note DATE OF SERVICE: 12/05/20 HISTORY: Patient is a 45 -year-old Single, Intellectually Disabled, Domiciled Male who was admitted on a 9.39 to [facility] after he was brought in by [place] [employer]. Patient had been calling them frequently in a panic that people are coming with guns and that nobody will be safe. He has known psychiatric history and has been admitted to this facility several times. Patient was recently admitted and discharged from this facility on 10/20/20- 11/05/20. He has a diagnosis of Schizoaffective Disorder, Bipolar Type and on his last admission treatment team attempted to transfer him to [facility] but patient had improvement and was discharged home. He has a long history of delusional and paranoid behaviors that have been increasingly more paranoid, delusional and bizarre. VITAL SIGNS: See below. CURRENT MEDICATIONS: See below. MENTAL STATUS EXAMINATION: Patient is a 45 -year-old Single, Intellectually Disabled, Domiciled Male who was admitted on a 9.39 to [facility] after he was brought in by [place] [employer]. Patient had been calling them frequently in a panic that people are coming with guns and that nobody will be safe. Patient is dressed appropriately, has a hypervigilant eye contact. Speech: circumstantial, loud, disorganized Language skills are intact. Thought processes including: Circumstantial, disorganized Thought content: paranoid thoughts, grandiose thoughts, ideas of reference, Abstract reasoning, and computation: Limited. Description of associations: loose Description of abnormal or psychotic thoughts: Grandiose, delusional, paranoid Judgment: poor. Insight: poor. Orientation: Awake, alert and oriented self, place. Recent and remote memory:Unable to assess. Attention span and concentration: Limited. Language: Intact. Fund of knowledge: Borderline. Mood: "I feel good" Affect: Anxious, happy, joking at times DIAGNOSES: Schizoaffective Bipolar Type Intellectual disability ASSESSMENT: The patient is still manic and delusional but he is not aggressive, not violent at this time. His speech is nonsensical and circumstantial but he is more able t o stay on a single topic for a longer period of time before jumping onto another topic. He is still grandiose, he says that he knows a lot of important people, he says he has several family members in important positions. He keeps thinking about motorcycling and he says he wants to get a helmet because he wants to use his chopper and the helmet is $300. This writer technical publications perception is that he is slowly showing some improvement, maybe not as much as we would like to but at least the level of aggressiveness is going down a little. There is still a long way to go, his judgment, insight and mood are impaired. He is delusional. TREATMENT PLAN; Continue all medications, Patient is now [facility] legal status. Will transfer to [facility]. Time spent; 25 minutes. Vital Signs Vital Signs Date Time Temp Pulse Resp B/P (MAP) Pulse Ox O2 Delivery O2 Flow Rate FiO2 12/05/20 06:10 98.1 85 18 138/81 (100) 99 Room Air Current Medications Current Medications Medications (Trade) Dose Ordered Sig/Rd Route PRN Reason Start Time Stop Time Status Last Admin Dose Admin Acetaminophen (Tylenol Tab) 650 mg Q6HP PRN PO HEADACHE or DISCOMFORT 11/18/20 16:00 12/05/20 08:53 Al Hydrox/Mg Hydrox/Simethicone (Mylanta) 30 ml Q4HP PRN PO HEARTBURN/INDIGESTION 11/18/20 16:00 Artificial Tears (Akwa Tears) 2 drop QID OU 11/29/20 21:00 12/05/20 12:22 Benztropine Mesylate (Cogentin) 3 mg QHS PO 11/19/20 21:00 Chlorpromazine HCl (Thorazine) 50 mg STAT STAT IM 12/03/20 06:08 12/03/20 06:09 DC 12/03/20 06:13 Home Med (Med Rec Complete!) ASDIRECTED XX 11/18/20 13:45 11/18/20 13:43 DC Hydroxyzine HCl (Atarax) 50 mg QHS PO 12/04/20 21:00 Magnesium Hydroxide (Milk Of Magnesia) 30 ml DAILYPRN PRN PO CONSTIPATION 11/18/20 16:00 12/04/20 12:48 Olanzapine (ZyPREXA ZYDIS) 5 mg Q4HP PRN PO AGITATION 12/03/20 05:55 Olanzapine (ZyPREXA ZYDIS) 10 mg BID PO 11/24/20 21:00 12/05/20 08:25 Olanzapine (ZyPREXA) 15 mg QHS PO 11/19/20 21:00 11/24/20 15:42 DC Trazodone HCl (Desyrel) 50 mg QHSP PRN PO INSOMNIA 11/18/20 16:00 Allergies Coded Allergies: No Known Allergies (Verified , 09/22/05) MIO BOWSER MD December 05, 2020 15:41
[2020-12-05 17:34] VITALS: BP 132/78
[2020-12-05] MEDS: BENZTROPINE 1 MG TAB PO SCH (20:04)
[2020-12-05] MEDS: hydrOXYzine 50 MG TAB PO SCH (20:04)
[2020-12-06] MEDS: ACETAMINOPHEN TAB 650MG DOSE (2X325MG) PO PRN ×2 (02:24→08:42)
[2020-12-06 06:39] VITALS: BP 123/82
[2020-12-06] MEDS: POLYVINYL ALCOHOL OPHTH SOLN 15 ML(LIQUITEARS) OU SCH ×4 (08:25→20:14)
[2020-12-06] MEDS: OLANZapine ORAL DISINTEGRATING TAB 5MG PO SCH ×2 (08:25→20:10)
[2020-12-06 17:45] VITALS: BP 142/86
[2020-12-06] MEDS: hydrOXYzine 50 MG TAB PO SCH (20:11)
[2020-12-06] MEDS: BENZTROPINE 1 MG TAB PO SCH (20:11)
[2020-12-07 05:35] VITALS: BP 120/72
[2020-12-07] MEDS: OLANZapine ORAL DISINTEGRATING TAB 5MG PO SCH ×2 (08:31→21:13)
[2020-12-07] MEDS: POLYVINYL ALCOHOL OPHTH SOLN 15 ML(LIQUITEARS) OU SCH ×4 (08:31→21:13)
[2020-12-07] MEDS: BENZTROPINE 1 MG TAB PO SCH (21:00)
[2020-12-07] MEDS: hydrOXYzine 50 MG TAB PO SCH (21:00)
[2020-12-08 07:02] VITALS: BP 135/87
[2020-12-08] MEDS: OLANZapine ORAL DISINTEGRATING TAB 5MG PO SCH ×2 (08:34→20:05)
[2020-12-08] MEDS: POLYVINYL ALCOHOL OPHTH SOLN 15 ML(LIQUITEARS) OU SCH ×4 (08:34→20:05)
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
[2020-12-08 16:14] VITALS: BP 139/87
[2020-12-08] MEDS: hydrOXYzine 50 MG TAB PO SCH (20:51)
[2020-12-08] MEDS: BENZTROPINE 1 MG TAB PO SCH (20:51)
[2020-12-08] MEDS: ACETAMINOPHEN TAB 650MG DOSE (2X325MG) PO PRN (21:24)
[2020-12-09] MEDS: ACETAMINOPHEN TAB 650MG DOSE (2X325MG) PO PRN ×3 (03:38→18:39)
[2020-12-09 06:44] VITALS: BP 134/78
[2020-12-09] MEDS: POLYVINYL ALCOHOL OPHTH SOLN 15 ML(LIQUITEARS) OU SCH ×4 (08:32→20:11)
[2020-12-09] MEDS: OLANZapine ORAL DISINTEGRATING TAB 5MG PO SCH ×2 (08:32→20:12)
--- NOTE | 2020-12-09 12:52 | MHIPNPDOC ---
[facility] Progress Note Progress Note DATE OF SERVICE: 12/09/20 The patient was seen for daily rounds and the case was discussed in team meeting. On examination, patient claims that that he is back in Hospital because they couldn't find the medication that was working for him, which is apparently Zydis.. He is a somewhat preoccupied about being discharged soon, claiming that if he doesn't go back to his apartment. He will lose all the benefit and his housing. He would really like to go home [place]. Treatment team however reports that patient have repeatedly decompensated after discharge due to his history of poor compliance and his being unable to care for himself. He has exhausted all the options. The outpatient provider feels he is really in a very unsafe situation outside of hospital. He is clearly in need of long-term stabilization and he has been referred to [facility] and is accepted, and is on the waiting list. The patient is showing very little change in his insight and judgment and clearly in need of the protected treatment environment and we will pursue transfer to state institution. HISTORY: . VITAL SIGNS: See below. NEW TEST RESULTS: . CURRENT MEDICATIONS: See below. MENTAL STATUS EXAMINATION: Patient is a 45-year old male with a extensive psychiatric history Speech: Is , pressured, flighty and preoccupied with the his discharge. Language skills are okay. Thought processes including: Extremely preoccupied and unable to have a reasonable conversation. Thought content: Showing no understanding into his current living situation. Abstract reasoning, and computation: , Poor. Description of associations: , Very anxious, pressured and preoccupied. Description of abnormal or psychotic thoughts: Been chronically delusional. Judgment: , Poor. Insight: very poor. Orientation: Appears oriented. Recent and remote memory: , Poor. Attention span and concentration: , Very poor. Language: . Fund of knowledge: , Poor. Mood: , Anxious, somewhat irritable. Affect: Labile, inappropriate. DIAGNOSES: 1. . Chronic schizophrenia 2. ., Rule out schizoaffective disorder 3. . ASSESSMENT: MANAGEMENT PLAN: . Continue with the current medications and the pursue transfer to long-term treatment facility. TIME SPENT: 20] minutes. Vital Signs Vital Signs Date Time Temp Pulse Resp B/P (MAP) Pulse Ox O2 Delivery O2 Flow Rate FiO2 12/09/20 06:44 98.2 76 16 134/78 (96) 98 Room Air Current Medications Current Medications Medications (Trade) Dose Ordered Sig/Rd Route PRN Reason Start Time Stop Time Status Last Admin Dose Admin Acetaminophen (Tylenol Tab) 650 mg Q6HP PRN PO HEADACHE or DISCOMFORT 11/18/20 16:00 12/09/20 12:34 Al Hydrox/Mg Hydrox/Simethicone (Mylanta) 30 ml Q4HP PRN PO HEARTBURN/INDIGESTION 11/18/20 16:00 Artificial Tears (Akwa Tears) 2 drop QID OU 11/29/20 21:00 12/09/20 12:31 Benztropine Mesylate (Cogentin) 3 mg QHS PO 11/19/20 21:00 Chlorpromazine HCl (Thorazine) 50 mg STAT STAT IM 12/03/20 06:08 12/03/20 06:09 DC 12/03/20 06:13 Home Med (Med Rec Complete!) ASDIRECTED XX 11/18/20 13:45 11/18/20 13:43 DC Hydroxyzine HCl (Atarax) 50 mg QHS PO 12/04/20 21:00 Magnesium Hydroxide (Milk Of Magnesia) 30 ml DAILYPRN PRN PO CONSTIPATION 11/18/20 16:00 12/04/20 12:48 Olanzapine (ZyPREXA ZYDIS) 5 mg Q4HP PRN PO AGITATION 12/03/20 05:55 Olanzapine (ZyPREXA ZYDIS) 10 mg BID PO 11/24/20 21:00 12/09/20 08:32 Olanzapine (ZyPREXA) 15 mg QHS PO 11/19/20 21:00 11/24/20 15:42 DC Trazodone HCl (Desyrel) 50 mg QHSP PRN PO INSOMNIA 11/18/20 16:00 Allergies Coded Allergies: No Known Allergies (Verified , 09/22/05) JAMSHID SALGUERO M.D. December 09, 2020 12:52
[2020-12-09 16:15] VITALS: BP 149/84
[2020-12-09] MEDS: hydrOXYzine 50 MG TAB PO SCH (20:28)
[2020-12-09] MEDS: BENZTROPINE 1 MG TAB PO SCH (20:29)
[2020-12-10] MEDS: ACETAMINOPHEN TAB 650MG DOSE (2X325MG) PO PRN ×3 (03:08→18:11)
[2020-12-10 06:17] VITALS: BP 124/69
[2020-12-10] MEDS: OLANZapine ORAL DISINTEGRATING TAB 5MG PO SCH (08:41)
[2020-12-10] MEDS: POLYVINYL ALCOHOL OPHTH SOLN 15 ML(LIQUITEARS) OU SCH ×4 (08:41→20:45)
--- NOTE | 2020-12-10 10:54 | MHIPNPDOC ---
[facility] Progress Note Progress Note DATE OF SERVICE: 12/10/20 The patient is presenting with the usual mental status and behavior. He is pressured, is rambling and quite preoccupied about his medications and the discharge prospect. HE is extremely flighty rambling about his family connections, [place] connections etc., and not making much sense at all. He is a however, asking to have his medication CHANGED to all at bedtime scheduled instead of taking it twice a day and the patient was told that it will be done. He remains grossly disorganized, delusional or but his behavior is in control. HISTORY: . VITAL SIGNS: See below. NEW TEST RESULTS: . CURRENT MEDICATIONS: See below. MENTAL STATUS EXAMINATION: Patient is a [45]-year old male in no acute distress Speech: Is [rambling, pressured and flighty]. Language skills are [, poor]. Thought processes including: [Extremely flighty and disorganized]. Thought content: [Many delusional ideas]. Abstract reasoning, and computation: [ , Poor]. Description of associations: [Disorganized]. Description of abnormal or psychotic thoughts: Bizarre and grandiose delusional thinking . Judgment: , Poor. Insight: [very poor]. Orientation: [, Well oriented]. Recent and remote memory: [, Poor]. Attention span and concentration: [, But a poor]. Language: . Fund of knowledge: [Below average]. Mood: [, Elevated, pressured]. Affect: [Inappropriate]. DIAGNOSES: 1. . Schizoaffective disorder 2. . 3. . ASSESSMENT:[Remains grossly psychotic and disorganized] MANAGEMENT PLAN: [Awaiting transfer to long-term hospitalization]. TIME SPENT: [15 minutes] minutes. Vital Signs Vital Signs Date Time Temp Pulse Resp B/P (MAP) Pulse Ox O2 Delivery O2 Flow Rate FiO2 12/10/20 06:17 97.7 70 18 124/69 (87) 99 Room Air Current Medications Current Medications Medications (Trade) Dose Ordered Sig/Rd Route PRN Reason Start Time Stop Time Status Last Admin Dose Admin Acetaminophen (Tylenol Tab) 650 mg Q6HP PRN PO HEADACHE or DISCOMFORT 11/18/20 16:00 12/10/20 03:08 Al Hydrox/Mg Hydrox/Simethicone (Mylanta) 30 ml Q4HP PRN PO HEARTBURN/INDIGESTION 11/18/20 16:00 Artificial Tears (Akwa Tears) 2 drop QID OU 11/29/20 21:00 12/10/20 08:41 Benztropine Mesylate (Cogentin) 3 mg QHS PO 11/19/20 21:00 Chlorpromazine HCl (Thorazine) 50 mg STAT STAT IM 12/03/20 06:08 12/03/20 06:09 DC 12/03/20 06:13 Home Med (Med Rec Complete!) ASDIRECTED XX 11/18/20 13:45 11/18/20 13:43 DC Hydroxyzine HCl (Atarax) 50 mg QHS PO 12/04/20 21:00 Magnesium Hydroxide (Milk Of Magnesia) 30 ml DAILYPRN PRN PO CONSTIPATION 11/18/20 16:00 12/04/20 12:48 Olanzapine (ZyPREXA ZYDIS) 5 mg Q4HP PRN PO AGITATION 12/03/20 05:55 Olanzapine (ZyPREXA ZYDIS) 10 mg BID PO 11/24/20 21:00 12/10/20 08:41 Olanzapine (ZyPREXA) 15 mg QHS PO 11/19/20 21:00 11/24/20 15:42 DC Trazodone HCl (Desyrel) 50 mg QHSP PRN PO INSOMNIA 11/18/20 16:00 Allergies Coded Allergies: No Known Allergies (Verified , 09/22/05) JAMSHID SALGUERO M.D. December 10, 2020 10:54
[2020-12-10 16:11] VITALS: BP 142/80
[2020-12-10] MEDS: hydrOXYzine 50 MG TAB PO SCH (20:46)
[2020-12-10] MEDS: BENZTROPINE 1 MG TAB PO SCH (20:46)
[2020-12-10] MEDS ORDERED: OLANZapine ORAL DISINTEGRATING TAB 5MG PO SCH (21:00)
[2020-12-11] MEDS: ACETAMINOPHEN TAB 650MG DOSE (2X325MG) PO PRN ×2 (08:18→19:02)
[2020-12-11] MEDS: POLYVINYL ALCOHOL OPHTH SOLN 15 ML(LIQUITEARS) OU SCH ×4 (08:20→20:58)
--- NOTE | 2020-12-11 09:54 | MHIPNPDOC ---
[facility] Progress Note Progress Note DATE OF SERVICE: 12/11/20 . The patient initially was somewhat irritable and demanding that he needs to be discharged today because he doesn't want to lose all his property and bank ac count Then the patient became much more pleasant but started to ramble about his family connections and his fascination with the Octavio Cordova, etc., and showing extremely disorganized, delusional thought content. His behavior is in control and is maintaining basic ADL skills, but his thoughts extremely scattered and disorganized with the long-standing numerous delusional ideas and showing no significant improvement. His doesn't want to take Zyprexa twice a day, so I will increase his bedtime dose of Zyprexa 20 mg and continue with supportive therapy and most likely transfer to a long-term hospital setting. HISTORY: . VITAL SIGNS: See below. NEW TEST RESULTS: . CURRENT MEDICATIONS: See below. MENTAL STATUS EXAMINATION: Patient is a 45-year old male, who is . Speech: Is rambling, pressured and flighty. Language skills are , poor. Thought processes including: Disorganized. Thought content: Numerous delusional ideas. Abstract reasoning, and computation: Poor . Description of associations: For. Description of abnormal or psychotic thoughts: , Delusional . Judgment: , Poor. Insight: very poor. Orientation: Difficult to evaluate but appears oriented. Recent and remote memory: ., Poor Attention span and concentration: , Poor. Language: . Fund of knowledge: Below average. Mood: Somewhat elevated. Affect: Labile, inappropriate. DIAGNOSES: 1. . Schizoaffective disorder 2. . 3. . ASSESSMENT:No improvement Increase his Zyprexa MANAGEMENT PLAN: . TIME SPENT: 20 minutes. Vital Signs Vital Signs Date Time Temp Pulse Resp B/P (MAP) Pulse Ox O2 Delivery O2 Flow Rate FiO2 12/10/20 16:11 98.7 90 20 142/80 (100) 98 Room Air Current Medications Current Medications Medications (Trade) Dose Ordered Sig/Rd Route PRN Reason Start Time Stop Time Status Last Admin Dose Admin Acetaminophen (Tylenol Tab) 650 mg Q6HP PRN PO HEADACHE or DISCOMFORT 11/18/20 16:00 12/11/20 08:18 Al Hydrox/Mg Hydrox/Simethicone (Mylanta) 30 ml Q4HP PRN PO HEARTBURN/INDIGESTION 11/18/20 16:00 Artificial Tears (Akwa Tears) 2 drop QID OU 11/29/20 21:00 12/11/20 08:20 Benztropine Mesylate (Cogentin) 3 mg QHS PO 11/19/20 21:00 Chlorpromazine HCl (Thorazine) 50 mg STAT STAT IM 12/03/20 06:08 12/03/20 06:09 DC 12/03/20 06:13 Home Med (Med Rec Complete!) ASDIRECTED XX 11/18/20 13:45 11/18/20 13:43 DC Hydroxyzine HCl (Atarax) 50 mg QHS PO 12/04/20 21:00 Magnesium Hydroxide (Milk Of Magnesia) 30 ml DAILYPRN PRN PO CONSTIPATION 11/18/20 16:00 12/04/20 12:48 Olanzapine (ZyPREXA ZYDIS) 5 mg Q4HP PRN PO AGITATION 12/03/20 05:55 Olanzapine (ZyPREXA ZYDIS) 5 mg QHS PO 12/10/20 21:00 12/10/20 20:45 Olanzapine (ZyPREXA ZYDIS) 10 mg BID PO 11/24/20 21:00 12/10/20 10:46 DC 12/10/20 08:41 Olanzapine (ZyPREXA) 15 mg QHS PO 11/19/20 21:00 11/24/20 15:42 DC Trazodone HCl (Desyrel) 50 mg QHSP PRN PO INSOMNIA 11/18/20 16:00 Allergies Coded Allergies: No Known Allergies (Verified , 09/22/05) JAMSHID SALGUERO M.D. December 11, 2020 09:54
[2020-12-11] MEDS ORDERED: OLANZapine ORAL DISINTEGRATING TAB 5MG PO PRN (10:00)
[2020-12-11 17:13] VITALS: BP 149/90
[2020-12-11] MEDS: OLANZapine ORAL DISINTEGRATING TAB 5MG PO SCH (20:53)
[2020-12-11] MEDS: hydrOXYzine 50 MG TAB PO SCH (20:55)
[2020-12-11] MEDS: BENZTROPINE 1 MG TAB PO SCH (20:55)
[2020-12-12] MEDS: ACETAMINOPHEN TAB 650MG DOSE (2X325MG) PO PRN ×2 (03:48→17:03)
[2020-12-12 06:13] VITALS: BP 146/88
[2020-12-12] MEDS: POLYVINYL ALCOHOL OPHTH SOLN 15 ML(LIQUITEARS) OU SCH ×4 (09:05→20:36)
--- NOTE | 2020-12-12 11:03 | MHIPNPDOC ---
[facility] Progress Note Progress Note DATE OF SERVICE: 12/12/20 Since it is the Zyprexa was increased at that time he has been fully cooperating, and showing slight improvement in his irritability and agitation. He is still very rambling flighty and remains grossly delusional or with the numerous chronic grandiose ideas, but is much less angry and not as hostile. He states that he understands that he is referred to [facility], but doesn't agree that he needs long-term care, although he is not actively resisting. He is in no acute distress, eating, sleeping okay and maintaining improved control. HISTORY: . VITAL SIGNS: See below. NEW TEST RESULTS: . CURRENT MEDICATIONS: See below. MENTAL STATUS EXAMINATION: Speech: Is pressured, flight T and disorganized . Language skills are good . Thought processes including: Rapid, pressured and flighty. Thought content: Numerous chronic delusional ideas. Abstract reasoning, and computation: , Poor. Description of associations: , Poor. Description of abnormal or psychotic thoughts: Grandiose, paranoid, delusional thinking. Judgment: For. Insight: very poor. Orientation: Appears oriented. Recent and remote memory: , Poor. Attention span and concentration: Very poor . Language: . Fund of knowledge: Below average ]. Mood: [Quite elevated]. Affect: [Labile, manic]. DIAGNOSES: 1. . Schizoaffective disorder 2. . 3. . ASSESSMENT: Not as irritable, alert, more cooperative, but no significant improvement MANAGEMENT PLAN: [. Continue with the current medicine and planned to transfer to long-term institution]. TIME SPENT: [15] minutes. Vital Signs Vital Signs Date Time Temp Pulse Resp B/P (MAP) Pulse Ox O2 Delivery O2 Flow Rate FiO2 12/12/20 06:13 97.3 90 18 146/88 (107) 100 Room Air Current Medications Current Medications Medications (Trade) Dose Ordered Sig/Rd Route PRN Reason Start Time Stop Time Status Last Admin Dose Admin Acetaminophen (Tylenol Tab) 650 mg Q6HP PRN PO HEADACHE or DISCOMFORT 11/18/20 16:00 12/12/20 03:48 Al Hydrox/Mg Hydrox/Simethicone (Mylanta) 30 ml Q4HP PRN PO HEARTBURN/INDIGESTION 11/18/20 16:00 Artificial Tears (Akwa Tears) 2 drop QID OU 11/29/20 21:00 12/12/20 09:05 Benztropine Mesylate (Cogentin) 3 mg QHS PO 11/19/20 21:00 Chlorpromazine HCl (Thorazine) 50 mg STAT STAT IM 12/03/20 06:08 12/03/20 06:09 DC 12/03/20 06:13 Home Med (Med Rec Complete!) ASDIRECTED XX 11/18/20 13:45 11/18/20 13:43 DC Hydroxyzine HCl (Atarax) 50 mg QHS PO 12/04/20 21:00 Magnesium Hydroxide (Milk Of Magnesia) 30 ml DAILYPRN PRN PO CONSTIPATION 11/18/20 16:00 12/04/20 12:48 Olanzapine (ZyPREXA ZYDIS) 5 mg Q4HP PRN PO AGITATION 12/03/20 05:55 12/11/20 09:59 DC Olanzapine (ZyPREXA ZYDIS) 5 mg QHS PO 12/10/20 21:00 12/11/20 09:28 DC 12/10/20 20:45 Olanzapine (ZyPREXA ZYDIS) 10 mg BID PO 11/24/20 21:00 12/10/20 10:46 DC 12/10/20 08:41 Olanzapine (ZyPREXA ZYDIS) 10 mg DAILYPRN PRN PO AGITATION 12/11/20 10:00 Olanzapine (ZyPREXA ZYDIS) 20 mg QHS PO 12/11/20 21:00 12/11/20 20:53 Olanzapine (ZyPREXA) 15 mg QHS PO 11/19/20 21:00 11/24/20 15:42 DC Trazodone HCl (Desyrel) 50 mg QHSP PRN PO INSOMNIA 11/18/20 16:00 Allergies Coded Allergies: No Known Allergies (Verified , 09/22/05) JAMSHID SALGUERO M.D. December 12, 2020 11:03
[2020-12-12 16:21] VITALS: BP 136/89
[2020-12-12] MEDS: OLANZapine ORAL DISINTEGRATING TAB 5MG PO SCH (20:36)
[2020-12-12] MEDS: BENZTROPINE 1 MG TAB PO SCH (21:00)
[2020-12-12] MEDS: hydrOXYzine 50 MG TAB PO SCH (21:00)
[2020-12-13 06:28] VITALS: BP 123/88
[2020-12-13] MEDS: POLYVINYL ALCOHOL OPHTH SOLN 15 ML(LIQUITEARS) OU SCH ×2 (09:01→12:41)
[2020-12-13] MEDS: ACETAMINOPHEN TAB 650MG DOSE (2X325MG) PO PRN ×2 (09:47→22:14)
[2020-12-13] MEDS ORDERED: CIPROFLOXACIN 0.3% OPHTH SOLN 2.5ML OU ONE (14:35)
--- NOTE | 2020-12-13 15:05 | IPNPDOC ---
Date Seen The patient was seen on 12/13/20. Progress Note SUBJECTIVE: c/o left eye dryness and pruritus w/o discharge, change in vision, blurred vision, decreased visual acuity, or retroorbital pain. some relief w qid artificial tears, but "not enough," requesting PRN drops OBJECTIVE PHYSICAL EXAMINATION: VITAL SIGNS: Please see below. GENERAL: pleasant no distress HEENT: Left eye minimal conjunctival injection no discharge. EOMI, PERRLA, no eyelid erythema or periorbital cellulitic changes CARDIOVASCULAR:S1S2 RRR RESPIRATORY: CTAB ABDOMINAL: +BS soft NT ND EXTREMITIES: no C/C/E ASSESSMENT AND PLAN: Dry eyes -no worrisome signs of glaucoma, keratitis, or bacterial conjuntivitis. -symptoms and history consistent with uncomplicated dry eyes. -for comfort and longer lasting effects, will try tid OINTMENT, but PRN q2hr refresh eye drops. -due to pruritus, will try patanol bid. -no need for ophth abx. VS, I&O, 24H, Fishbone Vital Signs/I&O Vital Signs Date Time Temp Pulse Resp B/P (MAP) Pulse Ox O2 Delivery O2 Flow Rate FiO2 12/13/20 06:28 98.2 84 16 123/88 (100) 99 Room Air DEBORAH MONSIVAIS MD December 13, 2020 15:05
[2020-12-13] MEDS ORDERED: POLYVINYL ALCOHOL OPHTH SOLN 15 ML(LIQUITEARS) OS ONE (15:30)
[2020-12-13] MEDS: OLOPATADINE 0.1% OPHTH SOL 5ML(PATANOL) OS SCH ×2 (16:20→20:52)
[2020-12-13] MEDS: LACRILUBE (AKWA TEARS) OPHTH OINT 3.5 GM OS SCH ×2 (16:21→20:52)
[2020-12-13 16:33] VITALS: BP 137/90
[2020-12-13] MEDS ORDERED: OLOPATADINE 0.1% OPHTH SOL 5ML(PATANOL) OU SCH (17:00)
[2020-12-13] MEDS: OLANZapine ORAL DISINTEGRATING TAB 5MG PO SCH (20:52)
[2020-12-13] MEDS: BENZTROPINE 1 MG TAB PO SCH (21:00)
[2020-12-13] MEDS: hydrOXYzine 50 MG TAB PO SCH (21:00)
[2020-12-14 06:48] VITALS: BP 123/66
[2020-12-14] MEDS: ACETAMINOPHEN TAB 650MG DOSE (2X325MG) PO PRN ×2 (09:02→23:34)
[2020-12-14] MEDS: LACRILUBE (AKWA TEARS) OPHTH OINT 3.5 GM OS SCH ×3 (09:05→22:23)
[2020-12-14] MEDS: OLOPATADINE 0.1% OPHTH SOL 5ML(PATANOL) OS SCH ×2 (09:05→22:23)
[2020-12-14] MEDS ORDERED: HALOPERIDOL 5MG/ML VIAL (J1630 PER 1) IM STA (12:51)
[2020-12-14] MEDS ORDERED: diphenhydrAMINE 50MG/ML VIAL (J1200) IM STA (12:51)
[2020-12-14] MEDS ORDERED: LORazepam 2 MG/ML VIAL IM STA (12:51)
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
[2020-12-14 13:45] VITALS: BP 121/78
[2020-12-14] MEDS: OLANZapine ORAL DISINTEGRATING TAB 5MG PO SCH (21:00)
[2020-12-14] MEDS: hydrOXYzine 50 MG TAB PO SCH (21:00)
[2020-12-14] MEDS: BENZTROPINE 1 MG TAB PO SCH (21:00)
[2020-12-15] MEDS: NICOTINE POLACRILEX 2 MG GUM PO PRN ×3 (03:23→18:18)
[2020-12-15 06:29] VITALS: BP 137/91
[2020-12-15] MEDS: ACETAMINOPHEN TAB 650MG DOSE (2X325MG) PO PRN ×2 (06:31→16:39)
[2020-12-15] MEDS: POLYVINYL ALCOHOL OPHTH SOLN 15 ML(LIQUITEARS) OS PRN (09:08)
[2020-12-15] MEDS: OLOPATADINE 0.1% OPHTH SOL 5ML(PATANOL) OS SCH ×2 (09:08→15:24)
[2020-12-15] MEDS: LACRILUBE (AKWA TEARS) OPHTH OINT 3.5 GM OS SCH ×3 (09:11→21:00)
--- NOTE | 2020-12-15 11:48 | MHIPNPDOC ---
[facility] Progress Note Progress Note DATE OF SERVICE: 12/15/20 Patient had several agitated episode and required extra medicine to control His agitation. This morning he is again very pressured, rambling, making nonstop n onsensical statements and showing grossly disorganized thinking. He is preoccupied with the food talking about rice pure tuna etc. and not making any sense. His grossly disorganized and manic, with no insight and is clearly in need of long-term stabilization. HISTORY: . VITAL SIGNS: See below. NEW TEST RESULTS: . CURRENT MEDICATIONS: See below. MENTAL STATUS EXAMINATION: Patient is a 45-year old male, who is , very loud and pressured. Speech: Is , rambling, flight T disorganized. Language skills are poor. Thought processes including: Disorganized. Thought content: Bizarre preoccupations. Abstract reasoning, and computation: , Poor. Description of associations: , Poor. Description of abnormal or psychotic thoughts: Numerous, bizarre preoccupations and delusional thinking . Judgment: , Very poor. Insight: poor]. Orientation: , Oriented to place. Recent and remote memory: , Poor Attention span and concentration: [, Poor Language: . Fund of knowledge: Below average. Mood: Somewhat excited, elevated. Affect: , Intense labile and inappropriate. DIAGNOSES: 1. . Schizoaffective disorder 2. . 3. . ASSESSMENT:Remains grossly psychotic and no significant improvement MANAGEMENT PLAN: Continue the current medicine and referred to long-term hospitalization . TIME SPENT: 15 minutes. Vital Signs Vital Signs Date Time Temp Pulse Resp B/P (MAP) Pulse Ox O2 Delivery O2 Flow Rate FiO2 12/15/20 06:29 98.5 98 18 137/91 (106) 100 Room Air Current Medications Current Medications Medications (Trade) Dose Ordered Sig/Rd Route PRN Reason Start Time Stop Time Status Last Admin Dose Admin Acetaminophen (Tylenol Tab) 650 mg Q6HP PRN PO HEADACHE or DISCOMFORT 11/18/20 16:00 12/15/20 06:31 Al Hydrox/Mg Hydrox/Simethicone (Mylanta) 30 ml Q4HP PRN PO HEARTBURN/INDIGESTION 11/18/20 16:00 Artificial Tears (Akwa Tears) 2 drop Q2HP PRN OS dry eyes 12/13/20 15:00 12/15/20 09:08 Artificial Tears (Akwa Tears) 2 drop QID OU 11/29/20 21:00 12/13/20 14:58 DC 12/13/20 12:41 Artificial Tears (Lacri-Lube Ophth Ointment) 1 dose TID OS 12/13/20 16:00 12/15/20 09:11 Benztropine Mesylate (Cogentin) 3 mg QHS PO 11/19/20 21:00 Chlorpromazine HCl (Thorazine) 50 mg STAT STAT IM 12/03/20 06:08 12/03/20 06:09 DC 12/03/20 06:13 Diphenhydramine HCl (Benadryl) 50 mg STAT STAT IM 12/14/20 12:51 12/14/20 12:54 DC 12/14/20 12:57 Haloperidol (Haldol) 5 mg STAT STAT IM 12/14/20 12:51 12/14/20 12:54 DC 12/14/20 12:57 Home Med (Med Rec Complete!) ASDIRECTED XX 11/18/20 13:45 11/18/20 13:43 DC Hydroxyzine HCl (Atarax) 50 mg QHS PO 12/04/20 21:00 Lorazepam (Ativan) 2 mg STAT STAT IM 12/14/20 12:51 12/14/20 12:54 DC 12/14/20 12:57 Magnesium Hydroxide (Milk Of Magnesia) 30 ml DAILYPRN PRN PO CONSTIPATION 11/18/20 16:00 12/04/20 12:48 Nicotine (Nicorette) 2 mg Q4HP PRN PO NICOTINE WITHDRAWAL 12/13/20 14:45 12/15/20 03:23 Olanzapine (ZyPREXA ZYDIS) 5 mg Q4HP PRN PO AGITATION 12/03/20 05:55 12/11/20 09:59 DC Olanzapine (ZyPREXA ZYDIS) 5 mg QHS PO 12/10/20 21:00 12/11/20 09:28 DC 12/10/20 20:45 Olanzapine (ZyPREXA ZYDIS) 10 mg BID PO 11/24/20 21:00 12/10/20 10:46 DC 12/10/20 08:41 Olanzapine (ZyPREXA ZYDIS) 10 mg DAILYPRN PRN PO AGITATION 12/11/20 10:00 Olanzapine (ZyPREXA ZYDIS) 20 mg QHS PO 12/11/20 21:00 12/13/20 20:52 Olanzapine (ZyPREXA) 15 mg QHS PO 11/19/20 21:00 11/24/20 15:42 DC Olopatadine HCl (Patanol) 1 drop BID OS 12/13/20 15:00 12/15/20 09:08 Olopatadine HCl (Patanol) 1 drop BID@09,17 OU 12/13/20 17:00 12/13/20 14:58 DC Trazodone HCl (Desyrel) 50 mg QHSP PRN PO INSOMNIA 11/18/20 16:00 Allergies Coded Allergies: No Known Allergies (Verified , 09/22/05) JAMSHID SALGUERO M.D. December 15, 2020 11:48
[2020-12-15 16:41] VITALS: BP 152/72
[2020-12-15] MEDS: hydrOXYzine 50 MG TAB PO SCH (20:40)
[2020-12-15] MEDS: OLANZapine ORAL DISINTEGRATING TAB 5MG PO SCH (20:41)
[2020-12-15] MEDS: BENZTROPINE 1 MG TAB PO SCH (20:41)
[2020-12-16] MEDS: ACETAMINOPHEN TAB 650MG DOSE (2X325MG) PO PRN (02:34)
[2020-12-16 06:46] VITALS: BP 138/81
[2020-12-16] MEDS: LACRILUBE (AKWA TEARS) OPHTH OINT 3.5 GM OS SCH ×3 (09:21→20:03)
[2020-12-16] MEDS: OLOPATADINE 0.1% OPHTH SOL 5ML(PATANOL) OS SCH ×2 (09:21→20:03)
[2020-12-16] MEDS: NICOTINE POLACRILEX 2 MG GUM PO PRN ×3 (09:24→20:43)
--- NOTE | 2020-12-16 10:13 | MHIPNPDOC ---
[facility] Progress Note Progress Note DATE OF SERVICE: 12/16/20 This morning. He is in bed resting and states that he would like to rest. He is not as pressured or agitated and in better control, but remains quite disorgani zed and showing no improvement. He is cooperating with medicine, didn't have any acting out behavior yesterday but basic mental status hasn't changed much. HISTORY: . VITAL SIGNS: See below. NEW TEST RESULTS: . CURRENT MEDICATIONS: See below. MENTAL STATUS EXAMINATION: Patient is a 45-year old male, who is in no acute distress. Speech: Is not very productive . Language skills are , poor. Thought processes including: , Not very productive. Thought content: Remains delusional, or. Abstract reasoning, and computation: , Poor. Description of associations: , Poor. Description of abnormal or psychotic thoughts: , Grossly delusional and grandiose. Judgment: , Poor. Insight: very poor. Orientation: Appears oriented . Recent and remote memory: , Only fair. Attention span and concentration: Poor . Language: . Fund of knowledge: Below average. Mood: Euthymic today. Affect: Labile, inappropriate. DIAGNOSES: 1. . Schizoaffective disorder 2. . 3. . ASSESSMENT:No basic change in no improvement MANAGEMENT PLAN: . Continue with the current medicine and pursue long-term hospitalization. TIME SPENT: 15] minutes. Vital Signs Vital Signs Date Time Temp Pulse Resp B/P (MAP) Pulse Ox O2 Delivery O2 Flow Rate FiO2 12/16/20 06:46 97.7 70 20 138/81 (100) 99 Room Air Current Medications Current Medications Medications (Trade) Dose Ordered Sig/Rd Route PRN Reason Start Time Stop Time Status Last Admin Dose Admin Acetaminophen (Tylenol Tab) 650 mg Q6HP PRN PO HEADACHE or DISCOMFORT 11/18/20 16:00 12/16/20 02:34 Al Hydrox/Mg Hydrox/Simethicone (Mylanta) 30 ml Q4HP PRN PO HEARTBURN/INDIGESTION 11/18/20 16:00 Artificial Tears (Akwa Tears) 2 drop Q2HP PRN OS dry eyes 12/13/20 15:00 12/15/20 09:08 Artificial Tears (Akwa Tears) 2 drop QID OU 11/29/20 21:00 12/13/20 14:58 DC 12/13/20 12:41 Artificial Tears (Lacri-Lube Ophth Ointment) 1 dose TID OS 12/13/20 16:00 12/16/20 09:21 Benztropine Mesylate (Cogentin) 3 mg QHS PO 11/19/20 21:00 Chlorpromazine HCl (Thorazine) 50 mg STAT STAT IM 12/03/20 06:08 12/03/20 06:09 DC 12/03/20 06:13 Diphenhydramine HCl (Benadryl) 50 mg STAT STAT IM 12/14/20 12:51 12/14/20 12:54 DC 12/14/20 12:57 Haloperidol (Haldol) 5 mg STAT STAT IM 12/14/20 12:51 12/14/20 12:54 DC 12/14/20 12:57 Home Med (Med Rec Complete!) ASDIRECTED XX 11/18/20 13:45 11/18/20 13:43 DC Hydroxyzine HCl (Atarax) 50 mg QHS PO 12/04/20 21:00 Lorazepam (Ativan) 2 mg STAT STAT IM 12/14/20 12:51 12/14/20 12:54 DC 12/14/20 12:57 Magnesium Hydroxide (Milk Of Magnesia) 30 ml DAILYPRN PRN PO CONSTIPATION 11/18/20 16:00 12/04/20 12:48 Nicotine (Nicorette) 2 mg Q4HP PRN PO NICOTINE WITHDRAWAL 12/13/20 14:45 12/16/20 09:24 Olanzapine (ZyPREXA ZYDIS) 5 mg Q4HP PRN PO AGITATION 12/03/20 05:55 12/11/20 09:59 DC Olanzapine (ZyPREXA ZYDIS) 5 mg QHS PO 12/10/20 21:00 12/11/20 09:28 DC 12/10/20 20:45 Olanzapine (ZyPREXA ZYDIS) 10 mg BID PO 11/24/20 21:00 12/10/20 10:46 DC 12/10/20 08:41 Olanzapine (ZyPREXA ZYDIS) 10 mg DAILYPRN PRN PO AGITATION 12/11/20 10:00 Olanzapine (ZyPREXA ZYDIS) 20 mg QHS PO 12/11/20 21:00 12/13/20 20:52 Olanzapine (ZyPREXA) 15 mg QHS PO 11/19/20 21:00 11/24/20 15:42 DC Olopatadine HCl (Patanol) 1 drop BID OS 12/13/20 15:00 12/16/20 09:21 Olopatadine HCl (Patanol) 1 drop BID@09,17 OU 12/13/20 17:00 12/13/20 14:58 DC Trazodone HCl (Desyrel) 50 mg QHSP PRN PO INSOMNIA 11/18/20 16:00 Allergies Coded Allergies: No Known Allergies (Verified , 09/22/05) JAMSHID SALGUERO M.D. December 16, 2020 10:13
[2020-12-16 16:13] VITALS: BP 106/90
[2020-12-16] MEDS: hydrOXYzine 50 MG TAB PO SCH (21:00)
[2020-12-16] MEDS: OLANZapine ORAL DISINTEGRATING TAB 5MG PO SCH (21:00)
[2020-12-16] MEDS: BENZTROPINE 1 MG TAB PO SCH (21:00)
[2020-12-17] MEDS: ACETAMINOPHEN TAB 650MG DOSE (2X325MG) PO PRN (04:40)
[2020-12-17] MEDS: NICOTINE POLACRILEX 2 MG GUM PO PRN ×3 (05:55→21:27)
[2020-12-17 06:30] VITALS: BP 143/87
[2020-12-17] MEDS: POLYVINYL ALCOHOL OPHTH SOLN 15 ML(LIQUITEARS) OS PRN ×2 (09:42→16:14)
[2020-12-17] MEDS: LACRILUBE (AKWA TEARS) OPHTH OINT 3.5 GM OS SCH ×3 (09:42→20:11)
[2020-12-17] MEDS: OLOPATADINE 0.1% OPHTH SOL 5ML(PATANOL) OS SCH ×2 (09:43→20:11)
--- NOTE | 2020-12-17 10:51 | MHIPNPDOC ---
[facility] Progress Note Progress Note DATE OF SERVICE: 12/17/20 Patient didn't want to take his Zyprexa for the past 3 nights and showing increased agitation and is a more loud and pressured. He told this M.D. that he is not going to take Zyprexa because he was cooperating in addition to his monthly injection and stated it is not getting discharged and there is no point of taking medicine. He then proceeded to ramble about his numerous delusional or ideas regarding his properties, his genius IQ and billions of dollars of his bank account, etc., He is showing no improvement and remained labile, agitated and grossly psychotic. HISTORY: . VITAL SIGNS: See below. NEW TEST RESULTS: . CURRENT MEDICATIONS: See below. MENTAL STATUS EXAMINATION: Patient is a 45-year old male, who is loud, agitated and pressured. Speech: Is pressured and flighty. Language skills are , poor. Thought processes including: , Rambling, loose and disorganized. Thought content: Numerous delusional ideas. Abstract reasoning, and computation: , Poor. Description of associations: For. Description of abnormal or psychotic thoughts: , Grossly psychotic. Judgment: Poor . Insight: very poor. Orientation: , Fair. Recent and remote memory: Fair . Attention span and concentration: , Poor. Language: . Fund of knowledge: , Limited. Mood: , Angry, irritable. Affect: Labile, agitated. DIAGNOSES: 1. . Schizoaffective disorder 2. . 3. . ASSESSMENT:, Grossly psychotic MANAGEMENT PLAN: Tried to educate and stabilized with the medicine. Transfer to long-term hospital. TIME SPENT: 15 minutes. Vital Signs Vital Signs Date Time Temp Pulse Resp B/P (MAP) Pulse Ox O2 Delivery O2 Flow Rate FiO2 12/17/20 06:30 97.6 81 18 143/87 (105) 100 Room Air Current Medications Current Medications Medications (Trade) Dose Ordered Sig/Rd Route PRN Reason Start Time Stop Time Status Last Admin Dose Admin Acetaminophen (Tylenol Tab) 650 mg Q6HP PRN PO HEADACHE or DISCOMFORT 11/18/20 16:00 12/17/20 04:40 Al Hydrox/Mg Hydrox/Simethicone (Mylanta) 30 ml Q4HP PRN PO HEARTBURN/INDIGESTION 11/18/20 16:00 Artificial Tears (Akwa Tears) 2 drop Q2HP PRN OS dry eyes 12/13/20 15:00 12/17/20 09:42 Artificial Tears (Akwa Tears) 2 drop QID OU 11/29/20 21:00 12/13/20 14:58 DC 12/13/20 12:41 Artificial Tears (Lacri-Lube Ophth Ointment) 1 dose TID OS 12/13/20 16:00 12/17/20 09:42 Benztropine Mesylate (Cogentin) 3 mg QHS PO 11/19/20 21:00 Chlorpromazine HCl (Thorazine) 50 mg STAT STAT IM 12/03/20 06:08 12/03/20 06:09 DC 12/03/20 06:13 Diphenhydramine HCl (Benadryl) 50 mg STAT STAT IM 12/14/20 12:51 12/14/20 12:54 DC 12/14/20 12:57 Haloperidol (Haldol) 5 mg STAT STAT IM 12/14/20 12:51 12/14/20 12:54 DC 12/14/20 12:57 Home Med (Med Rec Complete!) ASDIRECTED XX 11/18/20 13:45 11/18/20 13:43 DC Hydroxyzine HCl (Atarax) 50 mg QHS PO 12/04/20 21:00 Lorazepam (Ativan) 2 mg STAT STAT IM 12/14/20 12:51 12/14/20 12:54 DC 12/14/20 12:57 Magnesium Hydroxide (Milk Of Magnesia) 30 ml DAILYPRN PRN PO CONSTIPATION 11/18/20 16:00 12/04/20 12:48 Nicotine (Nicorette) 2 mg Q4HP PRN PO NICOTINE WITHDRAWAL 12/13/20 14:45 12/17/20 05:55 Olanzapine (ZyPREXA ZYDIS) 5 mg Q4HP PRN PO AGITATION 12/03/20 05:55 12/11/20 09:59 DC Olanzapine (ZyPREXA ZYDIS) 5 mg QHS PO 12/10/20 21:00 12/11/20 09:28 DC 12/10/20 20:45 Olanzapine (ZyPREXA ZYDIS) 10 mg BID PO 11/24/20 21:00 12/10/20 10:46 DC 12/10/20 08:41 Olanzapine (ZyPREXA ZYDIS) 10 mg DAILYPRN PRN PO AGITATION 12/11/20 10:00 Olanzapine (ZyPREXA ZYDIS) 20 mg QHS PO 12/11/20 21:00 12/13/20 20:52 Olanzapine (ZyPREXA) 15 mg QHS PO 11/19/20 21:00 11/24/20 15:42 DC Olopatadine HCl (Patanol) 1 drop BID OS 12/13/20 15:00 12/17/20 09:43 Olopatadine HCl (Patanol) 1 drop BID@09,17 OU 12/13/20 17:00 12/13/20 14:58 DC Trazodone HCl (Desyrel) 50 mg QHSP PRN PO INSOMNIA 11/18/20 16:00 Allergies Coded Allergies: No Known Allergies (Verified , 09/22/05) JAMSHID SALGUERO M.D. December 17, 2020 10:51
[2020-12-17] MEDS: hydrOXYzine 50 MG TAB PO SCH ×2 (20:10→20:29)
[2020-12-17] MEDS: BENZTROPINE 1 MG TAB PO SCH ×2 (20:10→20:30)
[2020-12-17] MEDS: OLANZapine ORAL DISINTEGRATING TAB 5MG PO SCH (20:11)
[2020-12-18] MEDS: OLOPATADINE 0.1% OPHTH SOL 5ML(PATANOL) OS SCH (09:41)
[2020-12-18] MEDS: LACRILUBE (AKWA TEARS) OPHTH OINT 3.5 GM OS SCH ×2 (09:41→15:40)
[2020-12-18] MEDS: NICOTINE POLACRILEX 2 MG GUM PO PRN (09:41)
--- NOTE | 2020-12-18 10:57 | MHIPNPDOC ---
[facility] Progress Note Progress Note DATE OF SERVICE: 12/18/20 The patient did take his Zyprexa last night and this morning his in bed and appears to be sleeping. Later he is practicing his martial art move in his room and stated that he does not wish to speak to the M.D. He is not as agitated. So far, but showing no improvement and is grossly disorganized and bizarre thoughts and remains grossly psychotic. HISTORY: . VITAL SIGNS: See below. NEW TEST RESULTS: . CURRENT MEDICATIONS: See below. MENTAL STATUS EXAMINATION: Patient is a 45-year old male, who is refusing to engage. Speech: Is , not productive. Language skills are , poor. Thought processes including: Grossly disorganized . Thought content: Remains delusional. Abstract reasoning, and computation: , Poor. Description of associations: Disorganized. Description of abnormal or psychotic thoughts: Numerous delusional ideas. Judgment: For. Insight: very . poor. Orientation: Appears oriented. Recent and remote memory: Poor . Attention span and concentration: , Poor. Language: . Fund of knowledge: , Poor. Mood: , Angry and irritable. Affect: Labile, inappropriate. DIAGNOSES: 1. . Schizoaffective disorder 2. . 3. . ASSESSMENT:No improvement remains grossly psychotic MANAGEMENT PLAN: Continue with the current medicine and referred to [facility]]. TIME SPENT: 15 minutes. Vital Signs Vital Signs Date Time Temp Pulse Resp B/P (MAP) Pulse Ox O2 Delivery O2 Flow Rate FiO2 12/17/20 06:30 97.6 81 18 143/87 (105) 100 Room Air Current Medications Current Medications Medications (Trade) Dose Ordered Sig/Rd Route PRN Reason Start Time Stop Time Status Last Admin Dose Admin Acetaminophen (Tylenol Tab) 650 mg Q6HP PRN PO HEADACHE or DISCOMFORT 11/18/20 16:00 12/17/20 04:40 Al Hydrox/Mg Hydrox/Simethicone (Mylanta) 30 ml Q4HP PRN PO HEARTBURN/INDIGESTION 11/18/20 16:00 Artificial Tears (Akwa Tears) 2 drop Q2HP PRN OS dry eyes 12/13/20 15:00 12/17/20 16:14 Artificial Tears (Akwa Tears) 2 drop QID OU 11/29/20 21:00 12/13/20 14:58 DC 12/13/20 12:41 Artificial Tears (Lacri-Lube Ophth Ointment) 1 dose TID OS 12/13/20 16:00 12/18/20 09:41 Benztropine Mesylate (Cogentin) 3 mg QHS PO 11/19/20 21:00 Chlorpromazine HCl (Thorazine) 50 mg STAT STAT IM 12/03/20 06:08 12/03/20 06:09 DC 12/03/20 06:13 Diphenhydramine HCl (Benadryl) 50 mg STAT STAT IM 12/14/20 12:51 12/14/20 12:54 DC 12/14/20 12:57 Haloperidol (Haldol) 5 mg STAT STAT IM 12/14/20 12:51 12/14/20 12:54 DC 12/14/20 12:57 Home Med (Med Rec Complete!) ASDIRECTED XX 11/18/20 13:45 11/18/20 13:43 DC Hydroxyzine HCl (Atarax) 50 mg QHS PO 12/04/20 21:00 Lorazepam (Ativan) 2 mg STAT STAT IM 12/14/20 12:51 12/14/20 12:54 DC 12/14/20 12:57 Magnesium Hydroxide (Milk Of Magnesia) 30 ml DAILYPRN PRN PO CONSTIPATION 11/18/20 16:00 12/04/20 12:48 Nicotine (Nicorette) 2 mg Q4HP PRN PO NICOTINE WITHDRAWAL 12/13/20 14:45 12/18/20 09:41 Olanzapine (ZyPREXA ZYDIS) 5 mg Q4HP PRN PO AGITATION 12/03/20 05:55 12/11/20 09:59 DC Olanzapine (ZyPREXA ZYDIS) 5 mg QHS PO 12/10/20 21:00 12/11/20 09:28 DC 12/10/20 20:45 Olanzapine (ZyPREXA ZYDIS) 10 mg BID PO 11/24/20 21:00 12/10/20 10:46 DC 12/10/20 08:41 Olanzapine (ZyPREXA ZYDIS) 10 mg DAILYPRN PRN PO AGITATION 12/11/20 10:00 Olanzapine (ZyPREXA ZYDIS) 20 mg QHS PO 12/11/20 21:00 12/17/20 20:11 Olanzapine (ZyPREXA) 15 mg QHS PO 11/19/20 21:00 11/24/20 15:42 DC Olopatadine HCl (Patanol) 1 drop BID OS 12/13/20 15:00 12/18/20 09:41 Olopatadine HCl (Patanol) 1 drop BID@09,17 OU 12/13/20 17:00 12/13/20 14:58 DC Trazodone HCl (Desyrel) 50 mg QHSP PRN PO INSOMNIA 11/18/20 16:00 Allergies Coded Allergies: No Known Allergies (Verified , 09/22/05) JAMSHID SALGUERO M.D. December 18, 2020 10:57
[2020-12-18] MEDS ORDERED: ACETAMINOPHEN TAB 650MG DOSE (2X325MG) PO PRN (13:45)
[2020-12-18] MEDS ORDERED: MOM 30ML SUSPENSION UDC PO PRN (13:45)
[2020-12-18] MEDS ORDERED: MAALOX 30 ML SUSP *UDC PO PRN (13:45)
[2020-12-18] MEDS ORDERED: traZODone 50 MG TAB PO PRN (13:45)
[2020-12-18] MEDS ORDERED: LORazepam 2 MG/ML VIAL IM STA (14:07)
[2020-12-18] MEDS ORDERED: diphenhydrAMINE 50MG/ML VIAL (J1200) IM STA (14:07)
[2020-12-18] MEDS ORDERED: HALOPERIDOL 5MG/ML VIAL (J1630 PER 1) IM STA (14:07)
--- NOTE | 2020-12-18 14:33 | MHIR ---
General Date: December 18, 2020 Time Initiated: 14:30 Restraint Documentation Order/Evaluation FACE TO FACE: yes. PHYSICIAN ASSESSMENT: belligerent and not following staff commands REASON FOR RESTRAINT: Patient poses imminent danger of harming self or others: Patient struggling against restraints unable to calm down, threatening staff. DE-ESCALATION INTERVENTIONS ATTEMPTED BEFORE USE OF RESTRAINTS: yes [MECHANICAL AND/OR CHEMICAL] RESTRAINTS USED: yes. LENGTH OF TIME ORDERED IN RESTRAINTS: 240 minutes. WHEN TO DISCONTINUE RESTRAINTS: when patient is no longer a threat to self and others Post evaluation of restraint due in 24 hours. RAMU PAN MD December 18, 2020 14:33
[2020-12-18 16:45] VITALS: BP 143/87
[2020-12-19] MEDS: ACETAMINOPHEN TAB 650MG DOSE (2X325MG) PO PRN (03:48)
[2020-12-19] MEDS: hydrOXYzine 50 MG TAB PO SCH ×2 (03:49→20:30)
[2020-12-19] MEDS: OLANZapine ORAL DISINTEGRATING TAB 5MG PO SCH ×2 (03:49→20:29)
[2020-12-19] MEDS: OLOPATADINE 0.1% OPHTH SOL 5ML(PATANOL) OS SCH ×3 (03:49→20:31)
[2020-12-19] MEDS: LACRILUBE (AKWA TEARS) OPHTH OINT 3.5 GM OS SCH ×4 (03:49→20:31)
[2020-12-19] MEDS: BENZTROPINE 1 MG TAB PO SCH ×2 (03:49→20:30)
[2020-12-19 06:13] VITALS: BP 106/56
[2020-12-19] MEDS: NICOTINE POLACRILEX 2 MG GUM PO PRN ×4 (08:03→20:30)
--- NOTE | 2020-12-19 11:07 | MHIPNPDOC ---
[facility] Progress Note Progress Note DATE OF SERVICE: 12/19/20 Patient had another acutely agitated and threatening behavior and required medications and restraint. This morning his in order to better control but when approached by the M.D. he started to scream and ramble about one of the staff member trying to kill him and he is afraid of being killed and he is going to kill that person. He is markedly paranoid and delusional, showing no insight and showing no significant improvement despite receiving long-acting antipsychotic medicine and taking his oral Zyprexa. HISTORY: . VITAL SIGNS: See below. NEW TEST RESULTS: . CURRENT MEDICATIONS: See below. MENTAL STATUS EXAMINATION: Patient is a [45]-year old male, who is [loud, agitated]. Speech: Is [rambling, flight]. Language skills are [, poor]. Thought processes including: [, Pressured, flighty]. Thought content: [Numerous delusional ideas]. Abstract reasoning, and computation: [, Poor]. Description of associations: , Disorganized. Description of abnormal or psychotic thoughts: [, Delusional ]. Judgment: [, Very poor]. Insight: [very poor]. Orientation: [Appears oriented]. Recent and remote memory: [poor]. Attention span and concentration: , Poor. Language: . Fund of knowledge: [Below average]. Affect: [Labile, agitated]. DIAGNOSES: 1. . Schizoaffective disorder 2. . 3. . ASSESSMENT:[Remains grossly psychotic and unstable with the frequent agitation] MANAGEMENT PLAN: [. Continue his medications and waiting for transfer to long- term inpatient treatment]. TIME SPENT: [[place]] minutes. Vital Signs Vital Signs Date Time Temp Pulse Resp B/P (MAP) Pulse Ox O2 Delivery O2 Flow Rate FiO2 12/19/20 06:13 96.9 94 18 106/56 (73) 99 Room Air Current Medications Current Medications Medications (Trade) Dose Ordered Sig/Rd Route PRN Reason Start Time Stop Time Status Last Admin Dose Admin Acetaminophen (Tylenol Tab) 650 mg Q6HP PRN PO HEADACHE or DISCOMFORT 11/18/20 16:00 12/19/20 03:48 Acetaminophen (Tylenol Tab) 650 mg Q6HP PRN PO HEADACHE or DISCOMFORT 12/18/20 13:45 UNV Al Hydrox/Mg Hydrox/Simethicone (Mylanta) 30 ml Q4HP PRN PO HEARTBURN/INDIGESTION 11/18/20 16:00 Al Hydrox/Mg Hydrox/Simethicone (Mylanta) 30 ml Q4HP PRN PO HEARTBURN/INDIGESTION 12/18/20 13:45 UNV Artificial Tears (Akwa Tears) 2 drop Q2HP PRN OS dry eyes 12/13/20 15:00 12/17/20 16:14 Artificial Tears (Akwa Tears) 2 drop QID OU 11/29/20 21:00 12/13/20 14:58 DC 12/13/20 12:41 Artificial Tears (Lacri-Lube Ophth Ointment) 1 dose TID OS 12/13/20 16:00 12/18/20 09:41 Benztropine Mesylate (Cogentin) 3 mg QHS PO 11/19/20 21:00 Chlorpromazine HCl (Thorazine) 50 mg STAT STAT IM 12/03/20 06:08 12/03/20 06:09 DC 12/03/20 06:13 Diphenhydramine HCl (Benadryl) 50 mg STAT STAT IM 12/14/20 12:51 12/14/20 12:54 DC 12/14/20 12:57 Diphenhydramine HCl (Benadryl) 50 mg STAT STAT IM 12/18/20 14:07 12/18/20 14:11 DC 12/18/20 14:25 Haloperidol (Haldol) 5 mg STAT STAT IM 12/14/20 12:51 12/14/20 12:54 DC 12/14/20 12:57 Haloperidol (Haldol) 10 mg STAT STAT IM 12/18/20 14:07 12/18/20 14:11 DC 12/18/20 14:25 Home Med (Med Rec Complete!) ASDIRECTED XX 11/18/20 13:45 11/18/20 13:43 DC Hydroxyzine HCl (Atarax) 50 mg QHS PO 12/04/20 21:00 Lorazepam (Ativan) 2 mg STAT STAT IM 12/14/20 12:51 12/14/20 12:54 DC 12/14/20 12:57 Lorazepam (Ativan) 2 mg STAT STAT IM 12/18/20 14:07 12/18/20 14:11 DC 12/18/20 14:25 Magnesium Hydroxide (Milk Of Magnesia) 30 ml DAILYPRN PRN PO CONSTIPATION 11/18/20 16:00 12/04/20 12:48 Magnesium Hydroxide (Milk Of Magnesia) 30 ml DAILYPRN PRN PO CONSTIPATION 12/18/20 13:45 UNV Nicotine (Nicorette) 2 mg Q4HP PRN PO NICOTINE WITHDRAWAL 12/13/20 14:45 12/19/20 08:03 Olanzapine (ZyPREXA ZYDIS) 5 mg Q4HP PRN PO AGITATION 12/03/20 05:55 12/11/20 09:59 DC Olanzapine (ZyPREXA ZYDIS) 5 mg QHS PO 12/10/20 21:00 12/11/20 09:28 DC 12/10/20 20:45 Olanzapine (ZyPREXA ZYDIS) 10 mg BID PO 11/24/20 21:00 12/10/20 10:46 DC 12/10/20 08:41 Olanzapine (ZyPREXA ZYDIS) 10 mg DAILYPRN PRN PO AGITATION 12/11/20 10:00 Olanzapine (ZyPREXA ZYDIS) 20 mg QHS PO 12/11/20 21:00 12/17/20 20:11 Olanzapine (ZyPREXA) 15 mg QHS PO 11/19/20 21:00 11/24/20 15:42 DC Olopatadine HCl (Patanol) 1 drop BID OS 12/13/20 15:00 12/19/20 08:03 Olopatadine HCl (Patanol) 1 drop BID@09,17 OU 12/13/20 17:00 12/13/20 14:58 DC Trazodone HCl (Desyrel) 50 mg QHSP PRN PO INSOMNIA 11/18/20 16:00 Trazodone HCl (Desyrel) 50 mg QHSP PRN PO INSOMNIA 12/18/20 13:45 UNV Allergies Coded Allergies: No Known Allergies (Verified , 09/22/05) JAMSHID SALGUERO M.D. December 19, 2020 11:06
[2020-12-19] MEDS: POLYVINYL ALCOHOL OPHTH SOLN 15 ML(LIQUITEARS) OS PRN ×3 (12:55→20:29)
[2020-12-19 18:24] VITALS: BP 140/89
[2020-12-20] MEDS: ACETAMINOPHEN TAB 650MG DOSE (2X325MG) PO PRN ×2 (05:58→19:56)
[2020-12-20 06:36] VITALS: BP 134/76
[2020-12-20] MEDS: OLOPATADINE 0.1% OPHTH SOL 5ML(PATANOL) OS SCH ×2 (08:21→19:57)
[2020-12-20] MEDS: LACRILUBE (AKWA TEARS) OPHTH OINT 3.5 GM OS SCH ×3 (08:21→19:57)
[2020-12-20] MEDS: NICOTINE POLACRILEX 2 MG GUM PO PRN ×2 (08:23→19:54)
[2020-12-20 16:49] VITALS: BP 143/91
[2020-12-20] MEDS: POLYVINYL ALCOHOL OPHTH SOLN 15 ML(LIQUITEARS) OS PRN (19:54)
[2020-12-20] MEDS: OLANZapine ORAL DISINTEGRATING TAB 5MG PO SCH (19:54)
[2020-12-20] MEDS: hydrOXYzine 50 MG TAB PO SCH (19:56)
[2020-12-20] MEDS: BENZTROPINE 1 MG TAB PO SCH (19:57)
[2020-12-21 06:41] VITALS: BP 140/83
[2020-12-21] MEDS: OLOPATADINE 0.1% OPHTH SOL 5ML(PATANOL) OS SCH ×2 (08:23→20:37)
[2020-12-21] MEDS: NICOTINE POLACRILEX 2 MG GUM PO PRN ×3 (08:24→22:13)
[2020-12-21] MEDS: LACRILUBE (AKWA TEARS) OPHTH OINT 3.5 GM OS SCH ×3 (09:00→20:38)
[2020-12-21 18:06] VITALS: BP 143/80
[2020-12-21] MEDS: OLANZapine ORAL DISINTEGRATING TAB 5MG PO SCH (20:37)
[2020-12-21] MEDS: BENZTROPINE 1 MG TAB PO SCH (21:00)
[2020-12-21] MEDS: hydrOXYzine 50 MG TAB PO SCH (21:00)
[2020-12-21] MEDS: ACETAMINOPHEN TAB 650MG DOSE (2X325MG) PO PRN (22:13)
[2020-12-21] MEDS: MOM 30ML SUSPENSION UDC PO PRN (23:12)
[2020-12-22 07:08] VITALS: BP 116/76
[2020-12-22] MEDS: NICOTINE POLACRILEX 2 MG GUM PO PRN (08:35)
[2020-12-22] MEDS: OLOPATADINE 0.1% OPHTH SOL 5ML(PATANOL) OS SCH (08:36)
[2020-12-22] MEDS: ACETAMINOPHEN TAB 650MG DOSE (2X325MG) PO PRN (08:37)
[2020-12-22] MEDS: LACRILUBE (AKWA TEARS) OPHTH OINT 3.5 GM OS SCH (09:00)
[2020-12-22] MEDS ORDERED: HYDR50TA70 PO (09:33)
[2020-12-22] MEDS ORDERED: NICO2GUM PO (09:33)
[2020-12-22] MEDS ORDERED: POLYOPD OS (09:33)
[2020-12-22] MEDS ORDERED: AKWA1OIN OS (09:33)
[2020-12-22] MEDS ORDERED: OLOP0.1D OS (09:33)
[2020-12-22] MEDS ORDERED: OLAN5ZYD PO (09:33)
--- NOTE | 2020-12-22 10:21 | REP ---
INDICATION: Rule Out TB. COMPARISON: No comparison chest x-ray. TECHNIQUE: Portable upright AP chest radiograph. FINDINGS: The lungs are well inflated and free of infiltrate. Pleural angles are sharp. Heart size is normal. Pulmonary vasculature is not increased. IMPRESSION: No active disease. <Electronically signed by Alin Stone > 12/22/20 1014
--- NOTE | 2020-12-22 10:22 | MHDSPDOC ---
[facility] Discharge Summary Discharge Summary DATE OF ADMISSION: Nov 18, 2020 at 15:57 DATE OF DISCHARGE: 12/22/2020 DISCHARGE DIAGNOSES: 1. . Schizoaffective disorder, bipolar type 2. . Borderline intellectual capacity I REASON FOR ADMISSION: [The patient has a long extensive psychiatric history and most recently discharged from [facility] on November 05, after 20 days of inpatient stay. Patient apparently decompensated fast and was brought to the emergency room by the police after he made numerous phone calls to the emergency department claiming that there are people outside with guns, threatening him, showing marked paranoid delusional ideas. He was very agitated and expressing many paranoid] and grandiose delusional ideas and showing no insight at all CONSULTANTS INVOLVED: [None] TREATMENT AND PROGRESS ON THE UNIT : [The patient has cooperated with all the medications including the long-acting Aristada injection 1064mg every 4 weeks and next dose due on January 01. He was also given Zyprexa 20 mg at bedtime and has experienced no significant side effect. He is a however, showing no improvement remained preoccupied with numerous bizarre grandiose and paranoid delusional thinking. He is convinced that his family is somehow connected to [employer] also claims he hears trillion dollars in his bank account and he will be losing them all if he stayed in hospital.. He has been frequently agitated and at times aggressive and required repeated extra medications to control his agitation. HOSPITAL COURSE: [Despite being medication compliant. He is not showing any improvement. He remained delusional and lacking any insight, and his behavior is frequently out of control with aggressive and threatening behavior. He at times is demanding immediate discharge claiming that he is losing his fortune.. He is intellectually limited, has no support system and clearly not able to maintain any safe living situation and is in need of long-term stabilization. He was referred to [facility] is accepted and will be discharged for long-term stabilization. DISCHARGE ASSESSMENT: [Patient remains grossly delusional paranoid] and frequently agitated MENTAL STATUS EXAMINATION ON DISCHARGE: Patient is a [45-year old male, who is [in no physical distress]. Speech is [, pressured, rambling]. Language skills are [for]. Thought processes including: [, Very flighty and disorganized]. Thought content: [Showing numerous delusional ideas]. Abstract reasoning, and computation: [, Poor]. Description of associations: [, Loose, disorganized, flighty]. Description of abnormal or psychotic thoughts: [Preoccupied with delusional and grandiose ideas]. Judgment: [, Poor]. Insight: [nil. Orientation to [, oriented]. Recent and remote memory: [, Poor]. Attention span and concentration: [For]. Language: . Fund of knowledge: [Below average]. Mood: [, Elevated anxious and that he intends]. Affect: [, Very labile, frequently agitated]. MEDICATIONS ON DISCHARGE: - for . per discharge medications sheet - for . - for . PLAN/FOLLOWUP ARRANGEMENTS: [Being transferred to [facility]]. The amount of time spent in the coordination of care for this patient was approximately [45] minutes. ETOH/Disorder Med Rx ETOH/DRUG DISORDER RX: N/A Vital Signs/I&Os Vital Signs Date Time Temp Pulse Resp B/P (MAP) Pulse Ox O2 Delivery O2 Flow Rate FiO2 12/22/20 07:08 98.4 80 20 116/76 (89) 98 Room Air Laboratory Data Microbiology Microbiology 12/19/20 Respiratory Virus Panel (PCR) ([facility]) - Final, Complete Medications Scheduled Aripiprazole Lauroxil (Aristada) 1,064 Mg/3.9 Ml Suser.syr, 1,064 MG IM EVERY 8 WEEKS for antipsychotic, #1 Benztropine Mesylate (Benztropine Mesylate) 1 Mg Tablet, 3 MG PO QHS, (Reported) Hydroxyzine HCl (Hydroxyzine HCl) 50 Mg Tablet, 50 MG PO QHS for anxiety for 7 Days Mineral Oil/Petrolatum,White (Artificial Tears Eye Ointment) 3.5 Gm Oint...g., 1 DOSE OS TID for dryness of eye for 7 Days Olanzapine (Olanzapine Odt) 5 Mg Tab.rapdis, 20 MG PO QHS for psychosis for 7 Days Olopatadine HCl (Olopatadine HCl) 0.1% 5ML Drops, 1 DROP OS BID for replacement, #10 Scheduled PRN Nicotine Polacrilex (Nicotine Gum) 2 Mg Gum, 2 MG PO Q4HP PRN for NICOTINE WITHD JEANINE for 7 Days Polyvinyl Alcohol (Artificial Tears) 15 Ml Drops, 2 DROP OS Q2HP PRN for dry eyes for 7 Days, #1 Allergies Coded Allergies: No Known Allergies (Verified , 09/22/05) JAMSHID SALGUERO M.D. December 22, 2020 10:22
[2020-12-22] MEDS ORDERED: diphenhydrAMINE 50MG CAP PO ONE (12:00)
[2020-12-22] MEDS ORDERED: LORazepam 1 MG TAB PO ONE (12:00)
[2020-12-22] MEDS ORDERED: haloperidoL 5 MG TAB PO ONE (12:00)
[2021-01-01] MEDS ORDERED: ARIPIPRAZOLE LAUROXIL IM ONE (09:00)
== END 2020-12-22 13:21 | DRG 750 ==
LOC: M ED 10:52 → M ED INP 15:57 → M PSY 17:32
PROVIDERS: ADMIT Psychiatry & Neurology Psychiatry; ATTEND Psychiatry & Neurology Psychiatry
DX: F25.0 Schizoaffective disorder, bipolar type (principal); Z79.899 Other long term (current) drug therapy; Z20.822 Contact with and (suspected) exposure to COVID-19; F70 Mild intellectual disabilities; Z87.891 Personal history of nicotine dependence; Z91.19 Patient's noncompliance with other medical treatment and regimen; Z78.1 Physical restraint status

== ENCOUNTER → 2021-07-10 | Outpatient (CLI) | payer OTHER ==
[~2021-07-10] MED LIST changes: +AKWA1OIN OS; +HYDR50TA70 PO; +NICO2GUM PO; -OLAN15TA PO; +OLAN15TA13 PO; +OLOP0.1D OS; +POLYOPD OS; +ZYPR15TA PO
[2021-07-10 10:49] LABS: BASO # 0.1 10^3/uL (0.0-0.2); BASO % 0.6 % (0.0-1.0); EOS # 0.2 10^3/uL (0.0-0.5); EOS % 1.8 % (0.0-3.0); HEMATOCRIT 44.1 % (42.0-52.0); HEMOGLOBIN 15.1 g/dl (13.5-17.5); LYMPH # 2.2 10^3/uL (1.5-5.0); LYMPH % 17.3 % (24.0-44.0); MEAN CORPUSCULAR HEMOGLOBIN 30.1 pg (27.0-33.0); MEAN CORPUSCULAR HGB CONC 34.2 g/dl (32.0-36.5); MONO # 0.9 10^3/uL (0.0-0.8); MONO % 7.5 % (2.0-8.0); NEUTROPHILS % 71.6 % (36.0-66.0); PLATELET COUNT, AUTOMATED 303 10^3/uL (150-450); RED BLOOD COUNT 5.01 10^6/uL (4.30-6.10); WHITE BLOOD COUNT 12.6 10^3/uL (4.0-10.0)
[2021-07-10 11:11] LABS: HEMOGLOBIN A1c 5.5 %
[2021-07-10 11:34] LABS: ALBUMIN 3.7 GM/DL (3.2-5.2); ALT/SGPT 24 U/L (12-78); BILIRUBIN,TOTAL 0.3 MG/DL (0.2-1.0); BLOOD UREA NITROGEN 10 MG/DL (7-18); CALCIUM LEVEL 9.2 MG/DL (8.5-10.1); CARBON DIOXIDE LEVEL 26 MEQ/L (21-32); CHLORIDE LEVEL 103 MEQ/L (98-107); CHOLESTEROL LEVEL 155 MG/DL (<200); CHOLESTEROL RISK RATIO 3.522 (<5); CREATININE FOR GFR 0.92 MG/DL (0.70-1.30); FREE T4 0.96 NG/DL (0.76-1.46); GLOMERULAR FILTRATION RATE > 60.0 (>60); GLUCOSE, FASTING 92 MG/DL (70-100); HDL CHOLESTEROL 44 MG/DL (>40); LDL CHOLESTEROL 90 MG/DL (<100); NON-HDL-C 111 MG/DL; POTASSIUM SERUM 4.8 MEQ/L (3.5-5.1); SODIUM LEVEL 134 MEQ/L (136-145); TOTAL PROTEIN 7.4 GM/DL (6.4-8.2); TRIGLYCERIDES LEVEL 103 MG/DL (<150)
== END ==
LOC: M PLALAB 09:12
PROVIDERS: ATTEND Nurse Practitioner Family
DX: F20.0 Paranoid schizophrenia (principal); Z13.1 Encounter for screening for diabetes mellitus; Z13.220 Encounter for screening for lipoid disorders

== ENCOUNTER → 2022-01-08 | Outpatient (CLI) | payer OTHER, MEDICAID ==
[~2022-01-08] MED LIST changes: -OLOP0.1D OS; +OLOP5DRO16 OS
[2022-01-08 17:04] LABS: BASO # 0.1 10^3/uL (0.0-0.2); BASO % 0.8 % (0.0-1.0); EOS # 0.4 10^3/uL (0.0-0.5); EOS % 3.3 % (0.0-3.0); HEMATOCRIT 43.4 % (42.0-52.0); HEMOGLOBIN 15.3 g/dl (13.5-17.5); LYMPH # 2.9 10^3/uL (1.5-5.0); LYMPH % 25.9 % (24.0-44.0); MEAN CORPUSCULAR HEMOGLOBIN 30.7 pg (27.0-33.0); MEAN CORPUSCULAR HGB CONC 35.3 g/dl (32.0-36.5); NEUTROPHILS # 6.7 10^3/uL (1.5-8.5); NEUTROPHILS % 59.9 % (36.0-66.0); PLATELET COUNT, AUTOMATED 235 10^3/uL (150-450); RED BLOOD COUNT 4.99 10^6/uL (4.30-6.10); WHITE BLOOD COUNT 11.2 10^3/uL (4.0-10.0)
[2022-01-08 17:41] LABS: ALBUMIN 3.6 GM/DL (3.2-5.2); ALT/SGPT 27 U/L (12-78); BILIRUBIN,TOTAL 0.2 MG/DL (0.2-1.0); BLOOD UREA NITROGEN 12 MG/DL (7-18); CALCIUM LEVEL 9.5 MG/DL (8.5-10.1); CARBON DIOXIDE LEVEL 24 MEQ/L (21-32); CHLORIDE LEVEL 103 MEQ/L (98-107); FREE T4 1.04 NG/DL (0.76-1.46); GLOMERULAR FILTRATION RATE > 60.0 (>60); GLUCOSE, FASTING 90 MG/DL (70-100); POTASSIUM SERUM 3.7 MEQ/L (3.5-5.1); SODIUM LEVEL 137 MEQ/L (136-145); TOTAL 25(OH) VITAMIN D 23.4 NG/ML (30.0-100.0)
== END ==
LOC: M PLALAB 15:27
PROVIDERS: ATTEND Nurse Practitioner Family
DX: E55.9 Vitamin D deficiency, unspecified (principal); R79.89 Other specified abnormal findings of blood chemistry; F20.0 Paranoid schizophrenia

== ENCOUNTER 2022-03-24 17:04 | Emergency (ER) | payer OTHER, MEDICAID ==
[~2022-03-24] VITALS: Ht 165.1 cm; Wt 66.3 kg
[2022-03-24 17:05] VITALS: BP 142/90
== END 2022-03-24 18:40 | disposition home or self-care (01) ==
LOC: M ED 17:04
DX: R20.2 Paresthesia of skin (principal); F17.200 Nicotine dependence, unspecified, uncomplicated; Z79.899 Other long term (current) drug therapy

== ENCOUNTER → 2022-04-13 | Outpatient (CLI) | payer OTHER | LOC: M PLALAB 11:38 | PROVIDERS: ATTEND Psychiatry & Neurology Psychiatry | DX: F25.0 Schizoaffective disorder, bipolar type (principal); F17.200 Nicotine dependence, unspecified, uncomplicated; R41.83 Borderline intellectual functioning | CPT/HCPCS: 36415; 80307; G0480 ==

== ENCOUNTER → 2022-07-12 | Outpatient (CLI) | payer OTHER, MEDICAID ==
[2022-07-12 15:41] LABS: BASO # 0.1 10^3/uL (0.0-0.2); BASO % 0.7 % (0.0-1.0); EOS # 0.3 10^3/uL (0.0-0.5); EOS % 2.3 % (0.0-3.0); HEMATOCRIT 44.7 % (42.0-52.0); LYMPH # 2.7 10^3/uL (1.5-5.0); LYMPH % 23.6 % (24.0-44.0); MEAN CORPUSCULAR HEMOGLOBIN 29.6 pg (27.0-33.0); MEAN CORPUSCULAR HGB CONC 33.6 g/dl (32.0-36.5); MEAN CORPUSCULAR VOLUME 88.3 fl (80.0-96.0); MONO # 0.7 10^3/uL (0.0-0.8); MONO % 6.4 % (2.0-8.0); NEUTROPHILS # 7.6 10^3/uL (1.5-8.5); NEUTROPHILS % 66.3 % (36.0-66.0); PLATELET COUNT, AUTOMATED 252 10^3/uL (150-450); RED BLOOD COUNT 5.06 10^6/uL (4.30-6.10); WHITE BLOOD COUNT 11.4 10^3/uL (4.0-10.0)
[2022-07-12 16:08] LABS: ALBUMIN 3.6 G/DL (3.2-5.2); ALKALINE PHOSPHATASE 85 U/L (46-116); ALT/SGPT 19 U/L (7.0-40); AST/SGOT 18 U/L (<34); BILIRUBIN,TOTAL 0.2 MG/DL (0.3-1.2); BLOOD UREA NITROGEN 10 MG/DL (9-23); CARBON DIOXIDE LEVEL 28 MMOL/L (20-31); CHLORIDE LEVEL 103 MMOL/L (98-107); CREATININE FOR GFR 0.91 MG/DL (0.70-1.30); GLOMERULAR FILTRATION RATE > 60.0 (>60); GLUCOSE, FASTING 129 MG/DL (60-100); POTASSIUM SERUM 4.4 MMOL/L (3.5-5.1); SODIUM LEVEL 136 MMOL/L (136-145)
[2022-07-12 16:11] LABS: THYROID STIMULATING HORMONE 4.876 uIU/ML (0.55-4.78)
[2022-07-12 16:12] LABS: FREE T4 1.12 NG/DL (0.89-1.76); TOTAL 25(OH) VITAMIN D 26.4 NG/ML (20.0-100.0)
== END ==
LOC: M PLALAB 13:50
PROVIDERS: ATTEND Nurse Practitioner Family
DX: F31.9 Bipolar disorder, unspecified (principal); E55.9 Vitamin D deficiency, unspecified; R79.89 Other specified abnormal findings of blood chemistry

== ENCOUNTER → 2022-08-09 | Outpatient (CLI) | payer OTHER, MEDICAID ==
[2022-08-09 15:30] LABS: CHOLESTEROL RISK RATIO 4.82 (<5); HDL CHOLESTEROL 37.5 MG/DL (>40); LDL CHOLESTEROL 121.7 MG/DL (<100)
[2022-08-09 15:46] LABS: HEMOGLOBIN A1c 5.1 % (4.0-6.0)
== END ==
LOC: M PLALAB 11:41
DX: F25.0 Schizoaffective disorder, bipolar type (principal); F17.200 Nicotine dependence, unspecified, uncomplicated; R41.83 Borderline intellectual functioning

== ENCOUNTER → 2023-01-10 | Outpatient (CLI) | payer OTHER ==
[~2023-01-10] MED LIST changes: +ARTIDRO4 OS; -BENZ-52 PO; +BENZ1TAB5 PO; -OLOP5DRO16 OS; +OLOP5DRO17 OS; -POLYOPD OS
[2023-01-10 16:13] LABS: BASO # 0.1 10^3/uL (0.0-0.2); BASO % 0.9 % (0.0-1.0); EOS # 0.3 10^3/uL (0.0-0.5); EOS % 2.9 % (0.0-3.0); HEMATOCRIT 42.4 % (42.0-52.0); HEMOGLOBIN 14.8 g/dl (13.5-17.5); LYMPH # 2.5 10^3/uL (1.5-5.0); LYMPH % 26.9 % (24.0-44.0); MEAN CORPUSCULAR HEMOGLOBIN 30.8 pg (27.0-33.0); MEAN CORPUSCULAR HGB CONC 34.9 g/dl (32.0-36.5); MEAN CORPUSCULAR VOLUME 88.1 fl (80.0-96.0); MONO # 0.8 10^3/uL (0.0-0.8); MONO % 8.1 % (2.0-8.0); NEUTROPHILS # 5.7 10^3/uL (1.5-8.5); NEUTROPHILS % 60.3 % (36.0-66.0); PLATELET COUNT, AUTOMATED 255 10^3/uL (150-450); RED BLOOD COUNT 4.81 10^6/uL (4.30-6.10); WHITE BLOOD COUNT 9.4 10^3/uL (4.0-10.0)
[2023-01-10 16:21] LABS: HEMOGLOBIN A1c 5.2 % (4.0-6.0)
[2023-01-10 16:44] LABS: THYROID STIMULATING HORMONE 3.672 uIU/ML (0.55-4.78)
[2023-01-10 16:45] LABS: FREE T4 1.12 NG/DL (0.89-1.76)
[2023-01-10 16:46] LABS: TOTAL 25(OH) VITAMIN D 27.9 NG/ML (20.0-100.0)
[2023-01-10 16:51] LABS: ALBUMIN 3.6 G/DL (3.2-5.2); ALKALINE PHOSPHATASE 73 U/L (46-116); ALT/SGPT 20 U/L (7.0-40); AST/SGOT 14 U/L (<34); BILIRUBIN,TOTAL 0.3 MG/DL (0.3-1.2); BLOOD UREA NITROGEN 9 MG/DL (9-23); CALCIUM LEVEL 8.6 MG/DL (8.5-10.1); CARBON DIOXIDE LEVEL 27 MMOL/L (20-31); CHLORIDE LEVEL 100 MMOL/L (98-107); CHOLESTEROL LEVEL 147 MG/DL (<200); CHOLESTEROL RISK RATIO 3.71 (<5); CREATININE FOR GFR 0.86 MG/DL (0.70-1.30); GLOMERULAR FILTRATION RATE > 60.0 (>60); GLUCOSE, FASTING 73 MG/DL (60-100); HDL CHOLESTEROL 39.6 MG/DL (>40); LDL CHOLESTEROL 85.6 MG/DL (<100); NON-HDL-C 107.4 MG/DL; POTASSIUM SERUM 4.3 MMOL/L (3.5-5.1); SODIUM LEVEL 133 MMOL/L (136-145); TOTAL PROTEIN 6.1 G/DL (5.7-8.2); TRIGLYCERIDES LEVEL 109 MG/DL (<150)
== END ==
LOC: M PLALAB 14:41
PROVIDERS: ATTEND Nurse Practitioner Family
DX: F20.0 Paranoid schizophrenia (principal); R73.09 Other abnormal glucose; Z13.220 Encounter for screening for lipoid disorders

== ENCOUNTER 2023-02-07 15:36 | Inpatient (IN) | payer MEDICAID, OTHER ==
[~2023-02-07] VITALS: Ht 162.6 cm; Wt 57.1 kg
[2023-02-07 18:10] LABS: HEMATOCRIT 46.3 % (42.0-52.0); HEMOGLOBIN 16.3 g/dl (13.5-17.5); MEAN CORPUSCULAR HEMOGLOBIN 30.8 pg (27.0-33.0); MEAN CORPUSCULAR HGB CONC 35.2 g/dl (32.0-36.5); MEAN CORPUSCULAR VOLUME 87.4 fl (80.0-96.0); PLATELET COUNT, AUTOMATED 328 10^3/uL (150-450); WHITE BLOOD COUNT 13.5 10^3/uL (4.0-10.0)
[2023-02-07 18:26] LABS: BARBITURATES URINE NEGATIVE (NEGATIVE)
[2023-02-07 18:27] LABS: AMPHETAMINES LEVEL URINE NEGATIVE (NEGATIVE); CANNABINOIDS URINE NEGATIVE (NEGATIVE); COCAINE METABOLITE URINE NEGATIVE (NEGATIVE); ETHYL ALCOHOL (ETHANOL) < 0.003 % (0.000-0.010); METHADONE URINE NEGATIVE (NEGATIVE); OPIATES URINE NEGATIVE (NEGATIVE); PHENCYCLIDINE URINE NEGATIVE (NEGATIVE)
[2023-02-07 18:28] LABS: BENZODIAZEPINES URINE NEGATIVE (NEGATIVE)
[2023-02-07 18:29] LABS: ACETAMINOPHEN LEVEL 3.7 UG/ML (10.0-20.0); ALBUMIN 4.2 G/DL (3.2-5.2); ALKALINE PHOSPHATASE 79 U/L (46-116); ALT/SGPT 50 U/L (7.0-40); AST/SGOT 30 U/L (<34); BILIRUBIN,DIRECT 0.1 MG/DL (<0.4); BILIRUBIN,TOTAL 0.3 MG/DL (0.3-1.2); BLOOD UREA NITROGEN 10 MG/DL (9-23); CALCIUM LEVEL 8.8 MG/DL (8.5-10.1); CARBON DIOXIDE LEVEL 28 MMOL/L (20-31); CHLORIDE LEVEL 96 MMOL/L (98-107); CREATININE FOR GFR 0.63 MG/DL (0.70-1.30); GLOMERULAR FILTRATION RATE > 60.0 (>60); GLUCOSE, FASTING 77 MG/DL (60-100); SALICYLATE LEVEL < 3.0 MG/DL (<30); SODIUM LEVEL 131 MMOL/L (136-145); TOTAL PROTEIN 7.3 G/DL (5.7-8.2)
[2023-02-07 18:33] LABS: THYROID STIMULATING HORMONE 5.699 uIU/ML (0.55-4.78)
[2023-02-07] MEDS ORDERED: OLAN1TAB20 PO (21:58)
[2023-02-07] MEDS ORDERED: OLAN20TA14 PO (21:58)
[2023-02-07] MEDS ORDERED: HOME MED LIST COMPLETE! XX SCH (22:00)
[2023-02-08] MEDS ORDERED: NICOTINE 14 MG/24 HR TRANSDERMAL TD SCH (09:00)
[2023-02-08] MEDS ORDERED: MAALOX 30 ML SUSP *UDC PO PRN (10:55)
[2023-02-08] MEDS ORDERED: MOM 30ML SUSPENSION UDC PO PRN (10:55)
[2023-02-08] MEDS ORDERED: IBUPROFEN 400MG TAB PO PRN (10:55)
[2023-02-08] MEDS ORDERED: diphenhydrAMINE 25MG CAP PO PRN (10:55)
[2023-02-08] MEDS ORDERED: traZODone 50 MG TAB PO PRN (10:55)
[2023-02-08 15:51] VITALS: BP 157/99; TEMP 98; O2SAT 100
[2023-02-08] MEDS: OLANZapine 10 MG TAB PO SCH (20:08)
[2023-02-08] MEDS: BENZTROPINE 1 MG TAB PO SCH (20:08)
[2023-02-08] MEDS ORDERED: OLANZapine 10 MG TAB PO SCH (21:00)
[2023-02-09 06:15] VITALS: BP 115/79; TEMP 97.3; O2SAT 100
[2023-02-09] MEDS: ACETAMINOPHEN TAB 650MG DOSE (2X325MG) PO PRN (06:31)
[2023-02-09] MEDS: NICOTINE POLACRILEX 2 MG GUM PO PRN ×2 (11:02→20:28)
[2023-02-09] MEDS: BACITRACIN OINTMENT 30GM TUBE TOP SCH (14:04)
[2023-02-09 18:45] VITALS: BP 117/79; TEMP 98.4; O2SAT 97
[2023-02-09] MEDS: BENZTROPINE 1 MG TAB PO SCH (20:26)
[2023-02-09] MEDS: OLANZapine 10 MG TAB PO SCH (20:27)
[2023-02-10 06:44] VITALS: BP 125/82; TEMP 96.8; O2SAT 100
[2023-02-10 06:50] LABS: CHOLESTEROL RISK RATIO 2.28 (<5); HDL CHOLESTEROL 54.6 MG/DL (>40); NON-HDL-C 70.4 MG/DL
[2023-02-10] MEDS: BACITRACIN OINTMENT 30GM TUBE TOP SCH (08:08)
[2023-02-10] MEDS: NICOTINE POLACRILEX 2 MG GUM PO PRN ×2 (08:09→14:32)
[2023-02-10] MEDS: ACETAMINOPHEN TAB 650MG DOSE (2X325MG) PO PRN (16:38)
[2023-02-10 18:24] VITALS: BP 140/90; TEMP 97.8
[2023-02-10] MEDS: OLANZapine 10 MG TAB PO SCH (20:21)
[2023-02-10] MEDS: BENZTROPINE 1 MG TAB PO SCH (20:22)
[2023-02-11 06:53] VITALS: BP 123/82; TEMP 96.6; O2SAT 100
[2023-02-11] MEDS: BACITRACIN OINTMENT 30GM TUBE TOP SCH (08:08)
[2023-02-11] MEDS: ACETAMINOPHEN TAB 650MG DOSE (2X325MG) PO PRN (08:09)
[2023-02-11] MEDS: NICOTINE POLACRILEX 2 MG GUM PO PRN ×3 (08:10→20:23)
[2023-02-11 17:44] VITALS: BP 148/88; TEMP 97.9; O2SAT 100
[2023-02-11] MEDS: OLANZapine 10 MG TAB PO SCH (20:21)
[2023-02-11] MEDS: BENZTROPINE 1 MG TAB PO SCH (20:22)
[2023-02-12 06:16] VITALS: BP 127/89; TEMP 97.8; O2SAT 100
[2023-02-12] MEDS: NICOTINE POLACRILEX 2 MG GUM PO PRN ×2 (08:18→14:58)
[2023-02-12] MEDS: BACITRACIN OINTMENT 30GM TUBE TOP SCH (10:40)
[2023-02-12] MEDS: ACETAMINOPHEN TAB 650MG DOSE (2X325MG) PO PRN (14:57)
[2023-02-12 18:27] VITALS: BP 124/85; TEMP 98.3; O2SAT 100
[2023-02-12] MEDS: BENZTROPINE 1 MG TAB PO SCH (20:16)
[2023-02-12] MEDS: OLANZapine 10 MG TAB PO SCH (20:16)
[2023-02-13 06:28] VITALS: BP 132/78; TEMP 98.5; O2SAT 97
[2023-02-13] MEDS: BACITRACIN OINTMENT 30GM TUBE TOP SCH (08:27)
[2023-02-13] MEDS: NICOTINE POLACRILEX 2 MG GUM PO PRN ×2 (08:28→14:49)
[2023-02-13 18:00] VITALS: BP 141/87; TEMP 98.3; O2SAT 99
[2023-02-13] MEDS: OLANZapine 10 MG TAB PO SCH (20:02)
[2023-02-13] MEDS: BENZTROPINE 1 MG TAB PO SCH (20:02)
[2023-02-14 06:29] VITALS: BP 125/71; TEMP 98.1; O2SAT 97
[2023-02-14] MEDS: NICOTINE POLACRILEX 2 MG GUM PO PRN (08:14)
[2023-02-14] MEDS ORDERED: NICO2GUM PO (10:18)
[2023-02-14] MEDS ORDERED: BENZ1TAB5 PO (10:18)
[2023-02-14] MEDS ORDERED: OLAN20TA14 PO (10:18)
[2023-02-14] MEDS ORDERED: OLAN1TAB20 PO (10:18)
== END 2023-02-14 13:55 | disposition home or self-care (01) | DRG 750 ==
LOC: M ED 15:36 → M PSY 02-08 15:35
PROVIDERS: ADMIT Student in an Organized Health Care Education/Training Program; ATTEND Student in an Organized Health Care Education/Training Program
DX: F25.0 Schizoaffective disorder, bipolar type (principal); F79 Unspecified intellectual disabilities; Z81.8 Family history of other mental and behavioral disorders; Z20.822 Contact with and (suspected) exposure to COVID-19; Z79.899 Other long term (current) drug therapy; Z91.048 Other nonmedicinal substance allergy status; Z87.891 Personal history of nicotine dependence; S41.00 Unspecified open wound of shoulder

== ENCOUNTER 2023-03-23 14:59 | Emergency (ER) | payer MEDICAID, OTHER ==
[~2023-03-23] VITALS: Ht 162.6 cm; Wt 63.9 kg
[~2023-03-23 14:59] MED LIST changes: +OLAN1TAB20 PO; +OLAN20TA14 PO
[2023-03-23] MEDS ORDERED: OLANZapine ORAL DISINTEGRATING TAB 5MG PO ONE (16:25)
[2023-03-23 16:53] LABS: HEMATOCRIT 41.2 % (42.0-52.0); HEMOGLOBIN 14.5 g/dl (13.5-17.5); MEAN CORPUSCULAR HEMOGLOBIN 30.1 pg (27.0-33.0); MEAN CORPUSCULAR HGB CONC 35.2 g/dl (32.0-36.5); MEAN CORPUSCULAR VOLUME 85.5 fl (80.0-96.0); PLATELET COUNT, AUTOMATED 327 10^3/uL (150-450); RED BLOOD COUNT 4.82 10^6/uL (4.30-6.10)
[2023-03-23 17:15] LABS: ETHYL ALCOHOL (ETHANOL) < 0.003 % (0.000-0.010)
[2023-03-23 17:17] LABS: ACETAMINOPHEN LEVEL < 2.0 UG/ML (10.0-20.0); ALBUMIN 3.7 G/DL (3.2-5.2); ALKALINE PHOSPHATASE 85 U/L (46-116); ALT/SGPT 18 U/L (7.0-40); AST/SGOT 16 U/L (<34); BILIRUBIN,DIRECT 0.2 MG/DL (<0.4); BILIRUBIN,TOTAL 0.6 MG/DL (0.3-1.2); BLOOD UREA NITROGEN 7 MG/DL (9-23); CALCIUM LEVEL 9.3 MG/DL (8.5-10.1); CARBON DIOXIDE LEVEL 25 MMOL/L (20-31); CHLORIDE LEVEL 98 MMOL/L (98-107); CREATININE FOR GFR 0.68 MG/DL (0.70-1.30); GLOMERULAR FILTRATION RATE > 60.0 (>60); GLUCOSE, FASTING 126 MG/DL (60-100); POTASSIUM SERUM 4.1 MMOL/L (3.5-5.1); SALICYLATE LEVEL < 3.0 MG/DL (<30); SODIUM LEVEL 130 MMOL/L (136-145); TOTAL PROTEIN 7.6 G/DL (5.7-8.2)
[2023-03-23 17:19] LABS: THYROID STIMULATING HORMONE 3.686 uIU/ML (0.55-4.78)
[2023-03-23 17:26] LABS: AMPHETAMINES LEVEL URINE NEGATIVE (NEGATIVE); BARBITURATES URINE NEGATIVE (NEGATIVE); BENZODIAZEPINES URINE NEGATIVE (NEGATIVE); CANNABINOIDS URINE NEGATIVE (NEGATIVE); COCAINE METABOLITE URINE NEGATIVE (NEGATIVE); METHADONE URINE NEGATIVE (NEGATIVE); OPIATES URINE NEGATIVE (NEGATIVE); PHENCYCLIDINE URINE NEGATIVE (NEGATIVE)
[2023-03-23] MEDS ORDERED: ZYPR20TA PO (20:02)
[2023-03-23] MEDS ORDERED: ZYPR10TA PO (20:02)
[2023-03-23] MEDS ORDERED: VITMTA PO (20:03)
[2023-03-24] MEDS ORDERED: BENZ1TAB5 PO (00:20)
[2023-03-24] MEDS ORDERED: ZYPR20TA PO (00:20)
[2023-03-24] MEDS ORDERED: VITMTA PO (00:20)
[2023-03-24] MEDS ORDERED: ZYPR10TA PO (00:20)
[2023-03-24] MEDS ORDERED: HOME MED LIST COMPLETE! XX SCH (00:25)
[2023-03-24] MEDS ORDERED: ACETAMINOPHEN TAB 650MG DOSE (2X325MG) PO PRN (12:55)
[2023-03-24] MEDS ORDERED: OLANZapine ORAL DISINTEGRATING TAB 5MG PO PRN (12:55)
[2023-03-24] MEDS ORDERED: MOM 30ML SUSPENSION UDC PO PRN (12:55)
[2023-03-24] MEDS ORDERED: MAALOX 30 ML SUSP *UDC PO PRN (12:55)
[2023-03-24] MEDS ORDERED: diphenhydrAMINE 25MG CAP PO PRN (12:55)
[2023-03-24] MEDS ORDERED: traZODone 50 MG TAB PO PRN (12:55)
[2023-03-24] MEDS ORDERED: IBUPROFEN 400MG TAB PO PRN (12:55)
[2023-03-24] MEDS ORDERED: ACETAMINOPHEN TAB 650MG DOSE (2X325MG) PO ONE (20:05)
[2023-03-24 20:54] VITALS: BP 166/116; TEMP 98.3; O2SAT 99
== END 2023-03-24 21:33 ==
LOC: M ED 14:59 → M ED INP 03-24 12:53 → UNDOADMIN 03-24 12:53 → M ED 03-24 21:33
DX: F29 Unspecified psychosis not due to a substance or known physiological condition (principal); F25.0 Schizoaffective disorder, bipolar type; F32.A Depression, unspecified; F20.9 Schizophrenia, unspecified; F70 Mild intellectual disabilities; F17.200 Nicotine dependence, unspecified, uncomplicated; J30.81 Allergic rhinitis due to animal (cat) (dog) hair and dander

== ENCOUNTER → 2023-09-13 | Outpatient (CLI) | payer MEDICAID, OTHER ==
[~2023-09-13] MED LIST changes: +VITMTA PO; +ZYPR10TA PO; +ZYPR20TA PO
[2023-09-13 18:14] LABS: BASO # 0.1 10^3/uL (0.0-0.2); BASO % 0.5 % (0.0-1.0); EOS # 0.2 10^3/uL (0.0-0.5); EOS % 1.4 % (0.0-3.0); HEMATOCRIT 42.1 % (42.0-52.0); HEMOGLOBIN 14.8 g/dl (13.5-17.5); LYMPH # 2.6 10^3/uL (1.5-5.0); LYMPH % 17.1 % (24.0-44.0); MEAN CORPUSCULAR HGB CONC 35.2 g/dl (32.0-36.5); MEAN CORPUSCULAR VOLUME 88.1 fl (80.0-96.0); MONO % 6.8 % (2.0-8.0); NEUTROPHILS # 11.2 10^3/uL (1.5-8.5); NEUTROPHILS % 73.5 % (36.0-66.0); PLATELET COUNT, AUTOMATED 274 10^3/uL (150-450); RED BLOOD COUNT 4.78 10^6/uL (4.30-6.10); WHITE BLOOD COUNT 15.3 10^3/uL (4.0-10.0)
[2023-09-13 18:26] LABS: HEMOGLOBIN A1c 5.4 % (4.0-6.0)
[2023-09-13 18:37] LABS: THYROID STIMULATING HORMONE 5.317 uIU/ML (0.55-4.78); TOTAL 25(OH) VITAMIN D 34.6 NG/ML (20.0-100.0)
[2023-09-13 18:38] LABS: FREE T4 1.06 NG/DL (0.89-1.76)
[2023-09-13 18:39] LABS: ALBUMIN 3.7 G/DL (3.2-5.2); ALKALINE PHOSPHATASE 82 U/L (46-116); ALT/SGPT 18 U/L (7.0-40); AST/SGOT 16 U/L (<34); BILIRUBIN,TOTAL 0.3 MG/DL (0.3-1.2); BLOOD UREA NITROGEN 8 MG/DL (9-23); CALCIUM LEVEL 8.7 MG/DL (8.5-10.1); CARBON DIOXIDE LEVEL 25 MMOL/L (20-31); CHLORIDE LEVEL 105 MMOL/L (98-107); CHOLESTEROL LEVEL 163 MG/DL (<200); CHOLESTEROL RISK RATIO 4.54 (<5); CREATININE FOR GFR 0.75 MG/DL (0.70-1.30); GLOMERULAR FILTRATION RATE > 60.0 (>60); GLUCOSE, FASTING 67 MG/DL (60-100); HDL CHOLESTEROL 35.9 MG/DL (>40); LDL CHOLESTEROL 93.3 MG/DL (<100); NON-HDL-C 127.1 MG/DL; POTASSIUM SERUM 4.4 MMOL/L (3.5-5.1); SODIUM LEVEL 132 MMOL/L (136-145); TOTAL PROTEIN 6.7 G/DL (5.7-8.2); TRIGLYCERIDES LEVEL 169 MG/DL (<150)
== END ==
LOC: M PLALAB 15:39
PROVIDERS: ATTEND Nurse Practitioner Family
DX: E55.9 Vitamin D deficiency, unspecified (principal); R79.89 Other specified abnormal findings of blood chemistry; R73.09 Other abnormal glucose; F20.0 Paranoid schizophrenia; Z13.220 Encounter for screening for lipoid disorders

== ENCOUNTER → 2024-03-13 | Outpatient (CLI) | payer OTHER ==
[~2024-03-13] MED LIST changes: -OLAN20TA14 PO; +OLAN20TA53 PO; +RISP-106 PO; -RISP-9 PO
[2024-03-13 18:51] LABS: BASO # 0.1 10^3/uL (0.0-0.2); BASO % 0.8 % (0.0-1.0); EOS # 0.3 10^3/uL (0.0-0.5); HEMATOCRIT 44.8 % (42.0-52.0); LYMPH # 2.9 10^3/uL (1.5-5.0); LYMPH % 30.4 % (24.0-44.0); MEAN CORPUSCULAR HEMOGLOBIN 31.6 pg (27.0-33.0); MEAN CORPUSCULAR HGB CONC 35.7 g/dl (32.0-36.5); MEAN CORPUSCULAR VOLUME 88.5 fl (80.0-96.0); MONO % 10.1 % (2.0-8.0); NEUTROPHILS # 5.3 10^3/uL (1.5-8.5); NEUTROPHILS % 54.9 % (36.0-66.0); PLATELET COUNT, AUTOMATED 260 10^3/uL (150-450); RED BLOOD COUNT 5.06 10^6/uL (4.30-6.10); WHITE BLOOD COUNT 9.6 10^3/uL (4.0-10.0)
[2024-03-13 19:02] LABS: ALKALINE PHOSPHATASE 91 U/L (46-116); ALT/SGPT 19 U/L (7.0-40); AST/SGOT 13 U/L (<34); BILIRUBIN,TOTAL 0.2 MG/DL (0.3-1.2); BLOOD UREA NITROGEN 9 MG/DL (9-23); CALCIUM LEVEL 9.1 MG/DL (8.5-10.1); CARBON DIOXIDE LEVEL 28 MMOL/L (20-31); CHLORIDE LEVEL 100 MMOL/L (98-107); CHOLESTEROL LEVEL 164 MG/DL (<200); CREATININE FOR GFR 0.91 MG/DL (0.70-1.30); GLOMERULAR FILTRATION RATE > 60.0 (>56); GLUCOSE, FASTING 72 MG/DL (60-100); HDL CHOLESTEROL 43.1 MG/DL (>40); LDL CHOLESTEROL 91.9 MG/DL (<100); NON-HDL-C 120.9 MG/DL; SODIUM LEVEL 131 MMOL/L (136-145); TOTAL PROTEIN 7.1 G/DL (5.7-8.2); TRIGLYCERIDES LEVEL 145 MG/DL (<150)
[2024-03-13 19:04] LABS: FREE T4 1.32 NG/DL (0.89-1.76)
[2024-03-13 19:26] LABS: HEMOGLOBIN A1c 5.2 % (4.0-6.0)
== END ==
LOC: M PLALAB 15:24
PROVIDERS: ATTEND Nurse Practitioner Family
DX: F20.0 Paranoid schizophrenia (principal); E55.9 Vitamin D deficiency, unspecified; R79.89 Other specified abnormal findings of blood chemistry; R73.09 Other abnormal glucose; E78.2 Mixed hyperlipidemia; D72.829 Elevated white blood cell count, unspecified

== ENCOUNTER → 2025-05-14 | Outpatient (CLI) | payer OTHER ==
[~2025-05-14] MED LIST changes: -OLAN15TA13 PO; +OLAN15TA69 PO; +OLAN20TA74 PO; -ZYPR20TA PO
[2025-05-14 10:22] LABS: BASO # 0.1 10^3/uL (0.0-0.2); BASO % 0.7 % (0.0-1.0); EOS # 0.1 10^3/uL (0.0-0.5); EOS % 1.4 % (0.0-3.0); LYMPH # 1.7 10^3/uL (1.5-5.0); LYMPH % 18.9 % (24.0-44.0); MONO # 0.7 10^3/uL (0.0-0.8); MONO % 7.9 % (2.0-8.0); NEUTROPHILS # 6.4 10^3/uL (1.5-8.5); NEUTROPHILS % 70.7 % (36.0-66.0); PLATELET COUNT, AUTOMATED 249 10^3/uL (150-450)
[2025-05-14 10:49] LABS: ALT/SGPT 18 U/L (7.0-40); AST/SGOT 17 U/L (<34); CALCIUM LEVEL 9.1 MG/DL (8.5-10.1); CARBON DIOXIDE LEVEL 27 MMOL/L (20-31); CHLORIDE LEVEL 104 MMOL/L (98-107); CHOLESTEROL LEVEL 144 MG/DL (<200); CHOLESTEROL RISK RATIO 3.95 (<5); CREATININE FOR GFR 0.83 MG/DL (0.70-1.30); GLOMERULAR FILTRATION RATE > 90.0 (>56); LDL CHOLESTEROL 89.8 MG/DL (<100); NON-HDL-C 107.6 MG/DL; POTASSIUM SERUM 4.6 MMOL/L (3.5-5.1); SODIUM LEVEL 136 MMOL/L (136-145); TRIGLYCERIDES LEVEL 89 MG/DL (<150)
[2025-05-14 11:40] LABS: ESTIMATED AVERAGE GLUCOSE 108.0 MG/DL (60-110)
== END ==
LOC: M LAB 09:23
PROVIDERS: ATTEND Psychiatry & Neurology Psychiatry
DX: F25.0 Schizoaffective disorder, bipolar type (principal); F17.200 Nicotine dependence, unspecified, uncomplicated; R41.83 Borderline intellectual functioning